=== PATIENT | male | born 1970 | race Caucasian/White ===

== ENCOUNTER 2022-02-04 08:35 | Emergency (ER) | payer MEDICAID, SELFPAY ==
--- NOTE | ~2022-02-04 | CT_ITS ---
EXAMINATION: CT HEAD WITHOUT CONTRAST CLINICAL INFORMATION: Fall with head strike COMPARISON: None. TECHNIQUE: Contiguous axial imaging was performed from the skull base to vertex without intravenous contrast. This CT examination was performed using dose optimization techniques as appropriate, variously including the following: * Automated exposure control * Adjustment of mA and/or kV according to patient size (this includes techniques or standardized protocols for targeted exams where dose is matched to indication/reason for exam; i.e. extremities or head) Use of iterative reconstruction technique DLP: 990 mGy-cm. FINDINGS: The examination was prematurely terminated due to patient inability to cooperate. The images are essentially nondiagnostic, as the entire head is not in the [id number] of this study and there is significant motion on the examination. CT/CT head/brain wo IV con IMPRESSION: Prematurely terminated examination due to inability of patient to cooperate. No useful diagnostic images are obtained.
[2022-02-04 08:48] VITALS: BP 105/64; PULSE 77; RESP 18; TEMP 35.9; BMI 19.5
--- NOTE | 2022-02-04 09:30 | ED_ITS ---
HPI - General Adult General Chief complaint: Fall Stated complaint: fall from standing, cog deficit per ems Time Seen by Provider: 02/04/22 09:28 Source: EMS and other (custodial staff) Mode of arrival: EMS Limitations: physical limitation (patient is non-verbal at baseline) History of Present Illness HPI narrative: Patient is a 51 year old assigned male at with a history of non-verbal autism and anxiety presenting to the emergency department today after a trip and fall. shelter staff states that the patient had a witnessed fall from ground level with a head strike. Staff states that the patient did not have any loss of consciousness. shelter staff states that they are concerned the patient has been acting more tired since before the fall and they would like a full work up . Severity: mild Severity scale (1-10): 2 Related Data Allergies Allergy/AdvReac Type Severity Reaction Status Date / Time Benzodiazepines Allergy Unknown UNKNOWN Unverified 01/05/20 17:11 [BENZODIAZEPINES] benztropine [BENZTROPINE] Allergy Unknown UNKNOWN Unverified 01/05/20 17:11 lorazepam [From ATIVAN] Allergy Unknown UNKNOWN Unverified 01/05/20 17:11 tretinoin [From RETIN-A] Allergy Unknown UNKNOWN Unverified 01/05/20 17:11 Review of Systems Review of Systems: Yes Other (unobtainable due to non-verbal status) Constitutional: Constitutional: Reports no additional constitutional complaints, Denies chills, Denies fever(s) and Denies night sweats Eyes: Eyes: Denies eye discharge and Denies loss of vision ENT: Denies dizziness and Denies neck mass Cardiovascular: Cardiovascular: Denies dyspnea Respiratory: Respiratory: Denies cough and Denies dyspnea Gastrointestinal: Gastrointestinal: Reports no additional gastrointestinal complaints, Denies abdominal pain, Denies melena, Denies hematochezia, Denies change in bowel habits and Denies change in stool character Genitourinary: Genitourinary: Reports no additional male genitourinary comp laints, Denies hematuria, Denies oliguria, Denies difficulty urinating, Denies dysuria, Denies urinary frequency, Denies urinary hesitancy, Denies urinary incontinence and Denies urinary urgency Musculoskeletal: Musculoskeletal: Reports no additional musculoskeletal complaints, Denies numbness and Denies tingling Neurologic: Denies dizziness, Denies loss of vision, Denies numbness and Denies tingling Psychiatric: Psychiatric: Reports no additional psychiatric complaints Endocrine: Endocrine: Reports no additional endocrine complaints Hematologic/Lymphatic: Hematologic/Lymphatic: Reports no additional hematologic/lymphatic complaints Allergic/Immunologic: Allergic/Immunologic: Reports no additional allergic/immunologic complaints PMFSH Past Medical History Attestation statement: The following information was validated with the patient. (all information was validated with the patient's staff) Source: old records reviewed Social History Social History Patient Tobacco Use Status: Never used Tobacco Use of substances other than those prescribed or required for medical reasons: No Advance Directives: No Physical Exam ED Vital Signs: Vital Signs - 24 hr 02/04/22 08:48 Temperature 96.7 F L Pulse Rate 77 Respiratory Rate 18 Blood Pressure 105/64 BMI result Body Mass Index 19.5 Const General: cooperative, no acute distress, alert and awake Nutritional Appearance: well nourished Limitations: language barrier (patient is non-verbal) and physical limitations (patient is non-verbal) HENMD Head: Yes normal to inspection and Yes atraumatic Ears: hearing grossly normal bilaterally and external ears normal General nose exam: Normal external nose present, no nasal discharge noted and no epistaxis Face and sinus: Yes normal facial exam, No abrasion and No laceration Mouth: Normal oral and palatal mucosa present, no drooling and no muffled voice Eyes General: appearance normal, both eyes and all related structures Periorbital: periorbital findings normal Eyelids: Yes eyelids normal Conjunctivae: conjunctivae normal Pupils: Equal, round and reactive pupils present EOM: EOMs intact bilaterally Neck Neck: Yes normal visual inspection, Yes full ROM and Yes no lymphadenopathy Chest Chest palpation & inspection: normal inspection of the chest Resp Effort & Inspection: normal respiratory effort and able to speak in complete sentences Auscultation: clear to auscultation bilaterally Cardio Rate: regular rate Rhythm: regular rhythm GI Inspection: Yes normal to inspection Neuro General: moves all extremities Cranial nerves: Yes Equal, round and reactive pupils present Extrem General: Yes normal to inspection, Yes full ROM and Yes capillary refill normal Psych Appearance: grossly normal Affect: normal affect Medical Decision Making MDM Narrative Medical decision making narrative: Patient is a 51 year old assigned male at with a history of non-verbal autism and anxiety presenting to the emergency department today after a fall. Patient's physical exam was unremarkable and considered his normal baseline per custodial staff. Patient's blood work was unremarkable. Patient refused to provide a urine sample or remain still for a CT scan. I called and spoke to the patient's mother. I explained to the patient's mother that he has no obvious neuro deficits and is acting his baseline self. Patient's mother requested that we not put the patient through the trauma of restraint to obtain a urine sample or get an appropriate CT scan. I answered all questions asked by the patient's mother and the patient's staff. I stressed the importance of the patient taking his medication as prescribed. I stressed the importance of the patient following up with his] primary care provider. I stressed the importance of the patient returning to the emergency department immediately if his symptoms were to worsen or if he were to develop any dizziness, shortness of breath, difficulty breathing, chest pain, blurry vision, loss of vision, nausea, vomiting, abdominal pain, fever, chills, back pain, or any other complaints. Patient's mother and the patient's staff verbalized agreement and understanding with this treatment plan and discharge. Medical Records Medical records reviewed: Yes I reviewed the patient's medical records. Lab Data Lab results reviewed: Yes I reviewed the patient's lab results. Result diagrams: 02/04/22 10:47 02/04/22 10:47 Labs: Lab Results 02/04/22 02/04/22 02/04/22 Range/Units 10:47 10:47 11:39 WBC 6.7 (4.8-10.8) X10*3/uL RBC 4.91 (4.60-5.80) X10*6/uL Hgb 15.4 (14.0-18.0) g/dl Hct 45.8 (42.0-52.0) % MCV 93.3 (80.0-98.0) fL MCH 31.4 (27.0-33.0) pg MCHC 33.6 (31.0-36.0) g/dl RDW 11.6 (11.0-16.0) % Plt Count 245 (160-400) X10*3/uL MPV 9.5 (9.4-12.4) fL Immature Gran % (Auto) 0.3 (0.0-0.4) % Neut % (Auto) 60.0 (45-73) % Lymph % (Auto) 23.8 (20-40) % Calloway % (Auto) 13.5 H (2-11) % Eos % (Auto) 2.1 (0-4) % Baso % (Auto) 0.3 (0-2) % Lymph # (Auto) 1.6 (1.2-4.9) X10*3/uL Calloway # (Auto) 0.9 (0.1-1.2) X10*3/uL Eos # (Auto) 0.1 (0.0-0.4) X10*3/uL Baso # (Auto) 0.0 (0.0-0.2) X10*3/uL Abs Immat Gran (auto) 0.02 (0.00-0.03) X10*3/uL Absolute Neuts (auto) 4.0 (2.0-8.3) x10*3/uL Absolute Nucleated RBC 0.000 (0.0-0.012) X10*3/uL Nucleated RBC % (auto) 0.0 (0.0-0.2) /100WBC Sodium 138 (135-145) mmol/L Potassium 4.5 (3.3-5.1) mmol/L Chloride 105 (96-108) mmol/L Carbon Dioxide 23 (22-29) mmol/L Anion Gap 15 (12-20) BUN 17 H (9-16) mg/dL Creatinine 0.69 (0.5-1.4) mg/dL Estim Creat Clear Calc 97.8 Estimated GFR > 60 Random Glucose 98 (60-115) mg/dL Calcium 9.0 (8.4-10.2) mg/dL Magnesium 2.0 (1.6-2.6) mg/dL Total Bilirubin 0.5 (0.0-1.0) mg/dL AST 18 (5-37) U/L ALT 14 (0-40) U/L Alkaline Phosphatase 59 (39-117) U/L Total Protein 6.7 (6.5-8.0) g/dL Albumin 3.8 (3.5-5.0) g/dL Influenza Type A (PCR) NEGATIVE (Negative) Influenza Type B (PCR) NEGATIVE (Negative) RSV RNA Qual (PCR) NEGATIVE (Negative) SARS-CoV-2 RNA (RT-PCR) NEGATIVE (Negative) Imaging Data CT scan - head: Attestation: I personally reviewed and interpreted this imaging study as follows: My impression: Undiagnostic. Radiologist's impression: EXAMINATION: CT HEAD WITHOUT CONTRAST CLINICAL INFORMATION: Fall with head strike COMPARISON: None. TECHNIQUE: Contiguous axial imaging was performed from the skull base to vertex without intravenous contrast. This CT examination was performed using dose optimization techniques as appropriate, variously including the following: *? Automated exposure control *? Adjustment of mA and/or kV according to patient size (this includes techniques or standardized protocols for targeted exams where dose is matched to indication/reason for exam; i.e. extremities or head) Use of iterative reconstruction technique DLP: 990 mGy-cm. FINDINGS: The examination was prematurely terminated due to patient inability to cooperate. The images are essentially nondiagnostic, as the entire head is not in the [id number] of this study and there is significant motion on the examination. CT/CT head/brain wo IV con IMPRESSION: Prematurely terminated examination due to inability of patient to cooperate. No useful diagnostic images are obtained. Dictated By: Tyler Waller MD Signed By: Electronically signed by Tyler Waller MD 02/04/22 1045 Discharge Plan Discharge Clinical Impression: Fall Patient Disposition: Home, Self-Care Instructions: Fall Prevention (ED) Additional Instructions: All lab work was negative for any acute problems. Follow up with your primary care provider. Return to the emergency department immediately if your symptoms worsen or if you develop any dizziness, shortness of breath, difficulty breathing, chest pain, blurry vision, loss of vision, nausea, vomiting, abdominal pain, fever, chills, back pain, or any other complaints. Referrals: Jason Mason MD [Primary Care Provider] - Interventions: ED Discharge Assessment Last Done: 02/04/22 13:56 Discharge Date/Time: 02/04/22 13:58 Print Language: Ukrainian
[2022-02-04 10:52] LABS: MANUAL DIFF FLAG NO
[2022-02-04 10:54] LABS: Basophils Percent Auto 0.3 % (0-2); Eosinophils Absolute Auto 0.1 X10*3/uL (0.0-0.4); Eosinophils Percent Auto 2.1 % (0-4); Hematocrit 45.8 % (42.0-52.0); Hemoglobin 15.4 g/dl (14.0-18.0); Imm Gran Abs Auto 0.02 X10*3/uL (0.00-0.03); Imm Gran Pct Auto 0.3 % (0.0-0.4); Lymphocytes Absolute Auto 1.6 X10*3/uL (1.2-4.9); Lymphocytes Percent Auto 23.8 % (20-40); Mean Corpuscular HGB Conc 33.6 g/dl (31.0-36.0); Mean Corpuscular Hemoglobin 31.4 pg (27.0-33.0); Mean Corpuscular Volume 93.3 fL (80.0-98.0); Mean Platelet Volume 9.5 fL (9.4-12.4); Monocytes Absolute Auto 0.9 X10*3/uL (0.1-1.2); Monocytes Percent Auto 13.5 % (2-11); Platelet Count 245 X10*3/uL (160-400); Red Blood Count 4.91 X10*6/uL (4.60-5.80); Red Cell Distribution Width 11.6 % (11.0-16.0); White Blood Count 6.7 X10*3/uL (4.8-10.8)
[2022-02-04 11:22] LABS: Alanine Aminotransferase 14 U/L (0-40); Albumin Level 3.8 g/dL (3.5-5.0); Alkaline Phosphatase 59 U/L (39-117); Anion Gap 15 (12-20); Aspartate Amino Transferase 18 U/L (5-37); Bilirubin Total 0.5 mg/dL (0.0-1.0); Blood Urea Nitrogen 17 mg/dL (9-16); Carbon Dioxide 23 mmol/L (22-29); Chloride 105 mmol/L (96-108); Creatinine Clr Calc Pharmacy 97.8; Estimated Glomerular Filt Rate > 60; Glucose Random 98 mg/dL (60-115); Potassium 4.5 mmol/L (3.3-5.1); Sodium 138 mmol/L (135-145); Total Protein 6.7 g/dL (6.5-8.0)
[2022-02-04 12:40] LABS: Influenza A PCR NEGATIVE (Negative); Influenza B PCR NEGATIVE (Negative); Resp Syncy Virus RNA Qual PCR NEGATIVE (Negative); SARS COV2 PCR INHOUSE NEGATIVE (Negative)
== END 2022-02-04 13:58 | disposition home or self-care (01) ==
PROVIDERS: Physician Assistant Medical; Emergency Provider Emergency Medicine Emergency Medical Services; PCP Internal Medicine
DX: S00.91XA Abrasion of unspecified part of head, initial encounter (principal); R51.9 Headache, unspecified; M54.2 Cervicalgia; W01.0XXA Fall on same level from slipping, tripping and stumbling without subsequent striking against object, initial encounter; Y93.9 Activity, unspecified; Y92.9 Unspecified place or not applicable; Y99.9 Unspecified external cause status; Z20.822 Contact with and (suspected) exposure to COVID-19; Z79.899 Other long term (current) drug therapy
CPT/HCPCS: 0241U; 70450; 80053; 83735; 85025; 99284

== ENCOUNTER 2022-03-10 09:16 | Emergency (ER) | payer MEDICAID, SELFPAY ==
[2022-03-10 09:22] VITALS: BP 107/68; RESP 14; TEMP 36.5; BMI 23.2
--- NOTE | 2022-03-10 09:23 | ED_ITS ---
HPI - Fall General Chief Complaint: Fall Stated Complaint: trip and fall with chin lac Source: old records reviewed Mode of arrival: EMS Limitations: altered mental status and physical limitation History of Present Illness HPI Narrative: 51-year-old patient [facility], with staff member at bedside, after a witnessed mechanical fall. Staff member denies any loss of consciousness before or after the fall or any change in mental status and that he is at his current mental baseline. Patient has a past medical history of autism, cerebral palsy, PICA, mitral valve prolapse, constipation, dysphagia, and tachycardia. Her [facility] staff member, patient is nonverbal however will grimace and vocalized if he is in any sort of pain. She does not believe he is uncomfortable at this time. He is alert, looking around the room, and tracking staff members while they moved in the room. Patient is unable to follow any given direction however he is noted to have normal range of motion of jaw as he is able to yawn with full opening of his mouth. MD complaint: fall Onset (ago): minute(s) Fall from: standing Fall witnessed: yes, by living facility staff Place fall occurred: home Loss of consciousness: none Prolonged down time: no Symptoms prior to fall: none Context: tripped/slipped Location of injury: face (right chin) Related Data Allergies Allergy/AdvReac Type Severity Reaction Status Date / Time Benzodiazepines Allergy Unknown UNKNOWN Unverified 01/05/20 17:11 [BENZODIAZEPINES] benztropine [BENZTROPINE] Allergy Unknown UNKNOWN Unverified 01/05/20 17:11 lorazepam [From ATIVAN] Allergy Unknown UNKNOWN Unverified 01/05/20 17:11 tretinoin [From RETIN-A] Allergy Unknown UNKNOWN Unverified 01/05/20 17:11 Review of Systems Review of Systems: Yes Unobtainable due to mental status and Other (information obtained from [facility] staff at [facility]iary) Constitutional: Constitutional: Reports no additional constitutional complaints, Denies fever(s), Denies frequent falls and Denies poor appetite ENT: Reports system reviewed and no additional complaints, except as documented, Denies bleeding gums and Reports dysphagia (baseline) Cardiovascular: Cardiovascular: Reports no additional cardiovascular complaints and Denies Loss of Consciousness Respiratory: Respiratory: Reports no additional respiratory complaints and Denies cough Gastrointestinal: Gastrointestinal: Reports no additional gastrointestinal complaints, Denies melena, Denies hematochezia, Denies change in bowel habits and Reports dysphagia (baseline) Musculoskeletal: Musculoskeletal: Reports no additional musculoskeletal complaints and Reports abnormal gait (baseline) Integumentary/Breasts: Skin/Breast: Reports system reviewed and no additional complaints, except as docu, Denies rash, Denies sores, Denies unusual bruising and Denies wounds Neurologic: Reports system reviewed and no additional complaints, except as documented, Reports abnormal gait (baseline), Denies behavioral changes and Denies frequent falls Psychiatric: Psychiatric: Reports no additional psychiatric complaints and Denies behavioral changes Endocrine: Endocrine: Reports no additional endocrine complaints and Denies change in body appearance Hematologic/Lymphatic: Hematologic/Lymphatic: Reports no additional hematologic/lymphatic complaints, Denies easy bleeding and Denies easy bruising PMFSH Past Medical History Attestation statement: The following information was validated with the patient. Source: old records reviewed and other (penitentiary staff member) Social History Social History Patient Tobacco Use Status: Never used Tobacco Advance Directives: No Advance Directives Information Provided: No Physical Exam Vital Signs: Vital Signs: Last Vital Signs Temp 97.7 F 03/10/22 09:22 Resp 14 03/10/22 09:22 BP 107/68 03/10/22 09:22 O2 Del Method 03/10/22 09:22 BMI result Body Mass Index 23.2 Const: General: alert and awake; No cooperative (does not follow commands) Nutritional Appearance: average body habitus Orientation/consciousness: Other orientation findings (unable to assess, pt nonverbal. At base [place] per penitentiary staff) Limitations: altered mental status, behavioral limitations and physical limitations HEENT: Head: Yes normal to inspection, Yes normocephalic and Yes laceration Ears: external ears normal General nose exam: Normal external nose present Face and sinus: Yes normal facial exam Eyes: General: appearance normal, both eyes and all related structures Alignment and Position: alignment normal Periorbital: periorbital findings normal Eyelids: Yes eyelids normal Conjunctivae: conjunctivae normal Sclerae: sclerae normal Pupils: Equal, round and reactive pupils present EOM: EOMs intact bilaterally Neck: Neck: Yes normal visual inspection and Yes full ROM Chest: Chest palpation & inspection: normal inspection of the chest Resp: Effort & Inspection: normal respiratory effort and not labored Auscultation: clear to auscultation bilaterally Cardio: Rate: regular rate Rhythm: regular rhythm GI: Inspection: Yes normal to inspection Back/Spine/Pelvis: Cervical Spine: cervical ROM normal Thoracic/Lumbar Spine: thoraco-lumbar ROM normal Skin: General skin exam: no rashes or lesions noted Trauma: laceration (right mandible/chin) Neuro: General: moves all extremities Cranial nerves: Yes Equal, round and reactive pupils present and Yes Bilaterally intact EOM present Gait exam (Neuro): Normal gait present (baseline per penitentiary staff) Extrem: General: Yes normal to inspection, Yes full ROM and Yes capillary refill normal Psych: Appearance: well kempt Medications Administered Discontinued Medications Generic Name Dose Route Start Last Admin Trade Name Freq PRN Reason Stop Dose Admin Diphtheria/Tetanus/Acell Pertussis 0.5 ml 03/10/22 10:11 03/10/22 10:23 Diphth,Pertus(Acell),Tet Adult 0.5 Ml Syringe IM 03/10/22 10:12 0.5 ml .ONCE ONE Administration Procedures Laceration Laceration 1: Site: face (right mandible/chin) Side (If applicable): right Size (cm): 1.5 Description: linear and clean Depth: simple, single layer Pre-repair: irrigated extensively Technique: other (closed with steristrips and dermabond) MDM - Fall MDM Narrative Medical decision making narrative: 51-year-old male presents to the emergency department after injuring his right mandible after a witnessed mechanical fall at [facility] a [facility]. Per penitentiary staff member, [facility], patient is at his baseline regarding his mental status, range of motion of his extremities and neck. 1.5 cm laceration noted on the right mandible with scant active bleeding. No signs of discomfort on palpation of his mandible, tissue soft, no crepitus noted, and no trismus noted when patient yawning. Wound cleansed with Betadine and normal saline, benzoin painted around wound edges, Steri-Strips applied, and Dermabond applied over Steri-Strips to close wound. Educated to present back to the emergency department with changes in mental status, nausea, vomiting, fever, chills, changes in his gait, or any other concern. Recommended to follow up with primary care provider. Fall safety discussed with [facility] staff member with no unanswered questions. No concerns for facial fracture, intracranial bleeding, concussion. Cleared for discharge. Medical Records Attestation: I reviewed the patient's medical records. Lab Data Attestation: I reviewed the patient's lab results. Discharge Plan Discharge Clinical Impression: Fall Patient Disposition: Home, Self-Care Instructions: Fall Prevention (ED) Additional Instructions: Present back to the emergency department if patient exhibits change in baseline mental status, change in his walking ability, change in vision, or any other concerns. Follow up with his primary care provider. Booster Tdap given today 03/10/2022 as last vaccine was in 2011. Referrals: Jason Mason MD [Primary Care Provider] - Interventions: ED Discharge Assessment Last Done: 03/10/22 10:28 Discharge Date/Time: 03/10/22 10:30 Print Language: Burmese
[2022-03-10] MEDS: Diphth,Pertus(ACell),Tet Adult 0.5 ML SYRINGE IM (10:23)
== END 2022-03-10 10:30 | disposition home or self-care (01) ==
PROVIDERS: Emergency Provider Emergency Medicine; PCP Internal Medicine
DX: S01.81XA Laceration without foreign body of other part of head, initial encounter (principal); W19.XXXA Unspecified fall, initial encounter; Y93.9 Activity, unspecified; Y92.049 Unspecified place in boarding-house as the place of occurrence of the external cause; Y99.9 Unspecified external cause status
CPT/HCPCS: 12011; 90471; 90715; 99282; 99284

== ENCOUNTER 2023-01-22 15:44 | Emergency (ER) | payer OTHER, SELFPAY ==
[2023-01-22 16:04] VITALS: BP 115/77; RESP 14; TEMP 36.7; BMI 20.8
--- NOTE | 2023-01-22 16:13 | ED.GENADULT ---
HPI - General Adult General Chief complaint: Extremity Injury, Lower Stated complaint: ? broken toe left foot Time Seen by Provider: 01/22/23 16:32 Source: patient and other Mode of arrival: ambulatory Limitations: no limitations History of Present Illness HPI narrative: This is a 52-year-old male nonverbal secondary to autism presenting to the emergency department with correction staff member who reports when she came on shift patient was reporting that his left 2nd toe was hurting she states that patient typically does not express pain. community health outreach worker was not aware of any trauma or injury to the area. No falls reported. Patient acting his normal self. Related Data Previous Rx's Medication Instructions Recorded naproxen 500 mg tablet 500 mg PO BID PRN pain #14 tabs 01/22/23 prednisone 20 mg tablet 40 mg (2 x 20 mg) PO DAILY 5 days 01/22/23 #10 tabs Allergies Allergy/AdvReac Type Severity Reaction Status Date / Time Benzodiazepines Allergy Unknown UNKNOWN Unverified 01/05/20 17:11 [BENZODIAZEPINES] benztropine [BENZTROPINE] Allergy Unknown UNKNOWN Unverified 01/05/20 17:11 lorazepam [From ATIVAN] Allergy Unknown UNKNOWN Unverified 01/05/20 17:11 tretinoin [From RETIN-A] Allergy Unknown UNKNOWN Unverified 01/05/20 17:11 Review of Systems Review of Systems: Yes Unobtainable due to mental status PMFSH Past Medical History Attestation statement: The following information was validated with the patient. Source: old records reviewed and nursing notes reviewed Social History Social History Patient Tobacco Use Status: Never used Tobacco Physical Exam ED Vital Signs: Vital Signs - 24 hr 01/22/23 16:04 Temperature 98.0 F Respiratory Rate 14 Blood Pressure 115/77 BMI result Body Mass Index 20.8 vss Appearance: Alert.? Awake, moving all extremities. Acting his normal self per probation worker. Nonverbal. Nontoxic Head: Normocephalic, atraumatic, no step-offs or deformities Eyes: Pupils equal, round and reactive to light.? CVS: Normal heart rate and rhythm.? Pulses normal.? Respiratory: No respiratory distress.? Breath sounds normal.? Abdomen: Soft and nontender.? Skin: Skin warm and dry.? Normal skin color.? Normal skin turgor.? Extremities: No lower extremity edema.? No calf ttp. 5/5 strength to bilateral upper and lower extremities + erythema and warmth overlying left 2nd toe throughout, with painless range of motion, patient not grimacing with active or passive range of motion 2+ dorsalis pedis anterior tibialis and posterior tibialis pulses equal bilateral. No foot drop. Ambulatory w/ steady gait. Neuro: Alert.? Awake, moving all extremities. Acting his normal self per probation worker Course Course Course Narrative: This is a rapid medical exam: Additional HPI, ROS, PE not included below will be deferred to primary provider. Patient is a 52-year-old male with history of non-verbal autism presenting to the ED with correction staff who reports that she just came on shift but was told patient's left 2nd toe is red and swollen. She states that patient typically does not express pain. She was not notified of any injury/trauma. Plan: x-ray Medical Decision Making Medical Decision Making MDM Narrative: 1640 52-year-old male presents with left 2nd toe pain and swelling suspected for a day, patient nonverbal autistic coming from correction. Physical exam significant for 5/5 strength to bilateral upper and lower extremities + erythema and warmth overlying left 2nd toe throughout, with painless range of motion, patient not grimacing with active or passive range of motion 2+ dorsalis pedis anterior tibialis and posterior tibialis pulses equal bilateral. No foot drop. Ambulatory w/ steady gait. Likely gout versus pseudogout versus inflammatory arthritis versus cellulitis. Unlikely septic joint, neurovascular compromise or threat to [place]. Will rule out fracture dislocation with x-ray although unlikely. Plan x-ray. Differential Diagnosis Differential Diagnoses: The differential diagnosis associated with the presentation includes Likely gout versus pseudogout versus inflammatory arthritis versus cellulitis. Unlikely septic joint, neurovascular compromise or threat to [place]. Will rule out fracture dislocation with x-ray although unlikely. Independent Interpretation I performed an independent interpretation of an: Plain X-Ray Radiology Impression Discussion of test interpretation with radiology: I have reviewed the radiologist's reading. Prescription Management I considered prescription management with: Pain Medication and Other (prednisone ) Discharge Plan Discharge Clinical Impression: Pain in toe Patient Disposition: Home, Self-Care Instructions: Arthralgia (ED) Additional Instructions: Take your medications as prescribed. If you were prescribed antibiotics today, it is important that you take your medication to their entirety, do not skip any doses, do not finish them early. Follow-up with your primary care provider this week. Follow-up with the orthopedic team in needed in symptoms do not improve in a week or 2. Return to the emergency department with new or worsening symptoms. Such as fevers, chills, chest pain, shortness of breath, nausea, vomiting, dizziness, headache, vision changes, lethargy In case of emergency call 911 Prescriptions: New naproxen 500 mg tablet 500 mg PO BID PRN (Reason: pain) Qty: 14 0RF Rx Instructions: Take with food prednisone 20 mg tablet 40 mg PO DAILY 5 Days Qty: 10 0RF Referrals: [facility] [place]Provider Group] - 2 weeks Jason Mason MD [Primary Care Provider] - 2 days
--- NOTE | 2023-01-22 16:19 | PC.NURSE ---
unable to get a full set of vitals due to patient condition
--- NOTE | 2023-01-22 17:13 | PC.NURSE ---
resting in wheelchair - baseline. alert. answers to name. baseline not follow commands per staff at bedside. took pill well w apple sauce
== END 2023-01-22 17:10 | disposition home or self-care (01) ==
PROVIDERS: Emergency Provider Emergency Medicine; PCP Internal Medicine
DX: M79.675 Pain in left toe(s) (principal); F84.0 Autistic disorder
CPT/HCPCS: 73630; 99283; 99284

== ENCOUNTER 2023-01-26 15:45 | Emergency (ER) | payer OTHER, SELFPAY ==
[2023-01-26 16:12] VITALS: BP 120/76; PULSE 90; RESP 18; TEMP 36.5; BMI 23.2
--- NOTE | 2023-01-26 16:12 | ED.GENADULT ---
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) History of Present Illness HPI narrative: Patient history of cerebral palsy mentally retarded autistic nonverbal comes here as he was grunting earlier today step was not clear as he gets UTI frequently and when he has any pain he grunts, in the ER patient's relax at his baseline without any distress Related Data Previous Rx's Medication Instructions Recorded naproxen 500 mg tablet 500 mg PO BID PRN pain #14 tabs 01/22/23 prednisone 20 mg tablet 40 mg (2 x 20 mg) PO DAILY 5 days 01/22/23 #10 tabs Allergies Allergy/AdvReac Type Severity Reaction Status Date / Time Benzodiazepines Allergy Unknown UNKNOWN Verified 01/26/23 16:16 [BENZODIAZEPINES] benztropine [BENZTROPINE] Allergy Unknown UNKNOWN Verified 01/26/23 16:16 lorazepam [From ATIVAN] Allergy Unknown UNKNOWN Verified 01/26/23 16:16 tretinoin [From RETIN-A] Allergy Unknown UNKNOWN Verified 01/26/23 16:16 Review of Systems Review of Systems: Yes all other systems are reviewed and are negative [facility] Social History Social History Patient Tobacco Use Status: Never used Tobacco Smoked in Last 30 Days: No Use of substances other than those prescribed or required for medical reasons: No Advance Directives: No Advance Directives Information Provided: No Physical Exam ED Vital Signs: Vital Signs - 24 hr 01/26/23 16:12 01/26/23 21:32 Temperature 97.7 F Pulse Rate 90 Respiratory Rate 18 17 Blood Pressure 120/76 116/77 BMI result Body Mass Index 23.2 Appearance: Alert. No acute distress. Mentally challenged Eyes: No pallor or icterus ENT: Pharynx normal. Oral Mucosa moist Neck: Normal inspection. Neck supple. CVS: Normal heart rate and rhythm. Pulses normal. Respiratory: No respiratory distress. Equal air entry bilateral, no wheezing/rales/rhonchi Abdomen: Soft and nontender. Bowel sounds are present, no mass palpable, Skin: Skin warm and dry. Normal skin color. Normal skin turgor. Extremities: No lower extremity edema. No calf tenderness Neuro: Alert and awake at his baseline Course Course Course Narrative: RME performed by Arleen Babcock PA-C. Patient is a 52 year old assigned male at presenting to the emergency department with abnormal behavior. [facility] staff states that the patient has been acting differently. Labs ordered. Patient placed back in the waiting room pending room availability and results. Medical Decision Making Medical Decision Making [place] Narrative: Patient with stable vital stable lab no UTI at this time cause of his grunting not clear likely behavioral no source of infection discharge patient back to group Differential Diagnosis Differential Diagnoses: The differential diagnosis associated with the presentation includes UTI/behavioral change/pain Lab Data [place] Lab Attestation statement: I reviewed the patient's lab results. 01/26/23 16:33 01/26/23 16:33 Labs: Lab Results 01/26/23 01/26/23 Range/Units 16:33 22:53 WBC 10.0 (4.8-10.8) X10*3/uL RBC 4.76 (4.60-5.80) X10*6/uL Hgb 15.1 (14.0-18.0) g/dl Hct 44.8 (42.0-52.0) % MCV 94.1 (80.0-98.0) fL MCH 31.7 (27.0-33.0) pg MCHC 33.7 (31.0-36.0) g/dl RDW 12.1 (11.0-16.0) % Plt Count 286 (160-400) X10*3/uL MPV 8.8 L (9.4-12.4) fL Immature Gran % (Auto) 0.2 (0.0-0.4) % Neut % (Auto) 56.6 (45-73) % Lymph % (Auto) 28.5 (20-40) % [place] % (Auto) 13.7 H (2-11) % Eos % (Auto) 0.8 (0-4) % Baso % (Auto) 0.2 (0-2) % Lymph # (Auto) 2.9 (1.2-4.9) X10*3/uL [place] # (Auto) 1.4 H (0.1-1.2) X10*3/uL Eos # (Auto) 0.1 (0.0-0.4) X10*3/uL Baso # (Auto) 0.0 (0.0-0.2) X10*3/uL Abs Immat Gran (auto) 0.02 (0.00-0.03) X10*3/uL Absolute Neuts (auto) 5.7 (2.0-8.3) x10*3/uL Absolute Nucleated RBC 0.000 (0.0-0.012) X10*3/uL Nucleated RBC % (auto) 0.0 (0.0-0.2) /100WBC Sodium 142 (135-145) mmol/L Potassium 4.1 (3.3-5.1) mmol/L Chloride 104 (96-108) mmol/L Carbon Dioxide 27 (22-29) mmol/L Anion Gap 15 (12-20) BUN 24 H (9-16) mg/dL Creatinine 0.75 (0.5-1.4) mg/dL Estim Creat Clear Calc 87.1 Estimated GFR > 60 Random Glucose 89 (60-115) mg/dL Calcium 9.9 D (8.4-10.2) mg/dL Magnesium 2.3 (1.6-2.6) mg/dL Total Bilirubin 0.4 (0.0-1.0) mg/dL AST 29 (5-37) U/L ALT 31 (0-40) U/L Alkaline Phosphatase 54 (39-117) U/L Total Protein 7.4 (6.5-8.0) g/dL Albumin 4.0 (3.5-5.0) g/dL Urine Color Yellow Urine Appearance Clear Urine pH 6.0 (5.0-9.0) Ur Specific [place] 1.025 (1.005-1.025) Urine Protein Negative (Neg-Trace) mg/dL Urine Glucose (UA) Negative (Negative) mg/dL Urine Ketones Trace (Negative) mg/dL Urine Blood Negative (Negative) Urine Nitrite Negative (Negative) Ur Leukocyte Esterase Negative (Negative) Influenza Type A (PCR) NEGATIVE (Negative) Influenza Type B (PCR) NEGATIVE (Negative) RSV RNA Qual (PCR) NEGATIVE (Negative) SARS-CoV-2 RNA (RT-PCR) NEGATIVE (Negative) Discharge Plan Discharge Clinical Impression: 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
--- NOTE | 2023-01-26 16:36 | MHC.EDTECH ---
this pct dolores labs on patient although patient has a member of his [facility] staff with him, staff member wasn't very helpful at all the patient kept jerking away and i had to go get another tech to assist me.RN Aware
[2023-01-26 16:53] LABS: Alanine Aminotransferase 31 U/L (0-40); Alkaline Phosphatase 54 U/L (39-117); Anion Gap 15 (12-20); Aspartate Amino Transferase 29 U/L (5-37); Bilirubin Total 0.4 mg/dL (0.0-1.0); Blood Urea Nitrogen 24 mg/dL (9-16); Calcium 9.9 mg/dL (8.4-10.2); Carbon Dioxide 27 mmol/L (22-29); Chloride 104 mmol/L (96-108); Creatinine Clr Calc Pharmacy 87.1; Estimated Glomerular Filt Rate > 60; Glucose Random 89 mg/dL (60-115); Magnesium 2.3 mg/dL (1.6-2.6); Potassium 4.1 mmol/L (3.3-5.1); Sodium 142 mmol/L (135-145); Total Protein 7.4 g/dL (6.5-8.0)
[2023-01-26 21:32] VITALS: BP 116/77; RESP 17
--- NOTE | 2023-01-27 01:03 | MHC.EDTECH ---
call out to pauline at 0103 to book transport for pt back to skilled nursing, estimated eta given was [phone] Ambulance is here 111
== END 2023-01-27 01:42 | disposition home or self-care (01) ==
PROVIDERS: Physician Assistant Medical; Emergency Provider Internal Medicine
DX: R41.82 Altered mental status, unspecified (principal); F84.0 Autistic disorder; F91.9 Conduct disorder, unspecified; R30.0 Dysuria; Z20.822 Contact with and (suspected) exposure to COVID-19; Z11.52 Encounter for screening for COVID-19; Z87.440 Personal history of urinary (tract) infections; Z79.899 Other long term (current) drug therapy
CPT/HCPCS: 0241U; 51701; 80053; 81003; 83735; 85025; 99283; 99284

== ENCOUNTER 2023-02-26 07:18 | Emergency (ER) | payer OTHER, SELFPAY ==
--- NOTE | ~2023-02-26 | XR_ITS ---
EXAMINATION: XR ELBOW, LEFT CLINICAL INFORMATION: Elbow swelling and erythema COMPARISON: None available. TECHNIQUE: AP, lateral, and oblique views of the left elbow. FINDINGS: There is a large area of heterotopic cloudlike calcifications seen in the region of the triceps tendon and olecranon bursa. No collection to underlying osseous structures is seen. It is difficult to assess for joint effusion with the given views. No fractures or dislocations. There is marked soft tissue swelling with skin thickening posteriorly. XR/XR elbow LT min 3V IMPRESSION: Large area of heterotopic calcification in the region of the triceps tendon and olecranon bursa as described above. 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
[2023-02-26 07:31] VITALS: BP 103/69; PULSE 88; RESP 16; BMI 23.2
--- NOTE | 2023-02-26 07:58 | ED_ITS ---
HPI - Extremity Problem General Chief complaint: Extremity Problem Stated complaint: Swelling in left arm Time Seen by Provider: 02/26/23 07:35 Source: other Mode of arrival: ambulatory History of Present Illness HPI Narrative: 52-year-old male brought in by group account director for identifying pain in the left upper extremity since this morning with swelling and warmth as well as redness. Unknown if patient sustained an injury. Related Data Previous Rx's Medication Instructions Recorded naproxen 500 mg tablet 500 mg PO BID PRN pain #14 tabs 01/22/23 prednisone 20 mg tablet 40 mg (2 x 20 mg) PO DAILY 5 days 01/22/23 #10 tabs acetaminophen 500 mg tablet 1,000 mg (2 x 500 mg) PO Q6H 5 02/26/23 days #60 tabs famotidine 20 mg tablet 20 mg PO DAILY #5 tabs 02/26/23 ibuprofen 800 mg tablet 800 mg PO TID 5 days #15 tabs 02/26/23 Allergies Allergy/AdvReac Type Severity Reaction Status Date / Time Benzodiazepines Allergy Unknown UNKNOWN Verified 01/26/23 16:16 [BENZODIAZEPINES] benztropine [BENZTROPINE] Allergy Unknown UNKNOWN Verified 01/26/23 16:16 lorazepam [From ATIVAN] Allergy Unknown UNKNOWN Verified 01/26/23 16:16 tretinoin [From RETIN-A] Allergy Unknown UNKNOWN Verified 01/26/23 16:16 Review of Systems Review of Systems: Pertinent positives and negatives as stated in HPI [facility] Past Medical History Source: nursing notes reviewed Social History Social History Unable to assess alcohol history related to: Unable to respond Patient Tobacco Use Status: Never used Tobacco Use of substances other than those prescribed or required for medical reasons: Unable to respond Advance Directives: No Advance Directives Information Provided: No Physical Exam Vital Signs: Vital Signs: Last Vital Signs Pulse 82 02/26/23 08:40 Resp 14 02/26/23 08:40 BP 116/73 02/26/23 08:40 BMI result Body Mass Index 23.2 VITAL SIGNS: Reviewed. GENERAL: Well developed, well nourished, in no acute distress. HEAD: Normocephalic/atraumatic EYES: PERRLA, EOMI EARS: Ext canals without abnormality NOSE: Nares patent bilateral OROPHARYNX: no oral lesions noted, posterior pharynx clear NECK: Supple, no adenopathy LUNGS: Normal breath sounds. No adventitious sounds or accessory muscle use. CARDIOVASCULAR: Regular rate and rhythm without noted murmurs ABDOMEN: Soft, non-tender, non-distended with bowel sounds. MUSCULOSKELETAL: No tenderness, deformities, or effusions noted on gross inspection. EXTREMITIES: No cyanosis, clubbing or edema. LUE: There is noted erythema and swelling around the left elbow, patient is been of the elbow without observed pain, neurovascular is intact distal, observed full range of motion of the wrist SKIN: Inspection of the skin reveals no rashes NEUROLOGIC: Alert and nonverbal. Strength and sensation to light touch were grossly intact x 4. Medications Administered Discontinued Medications Generic Name Dose Route Start Last Admin Trade Name Addyq PRN Reason Stop Dose Admin Acetaminophen 975 mg 02/26/23 08:01 02/26/23 08:29 Acetaminophen 325 Mg Tablet PO 02/26/23 08:02 Not Given ONCE ONE Famotidine 20 mg 02/26/23 08:08 02/26/23 08:21 Famotidine 20 Mg Tablet PO 02/26/23 08:09 20 mg ONCE ONE Administration Ibuprofen 800 mg 02/26/23 08:04 02/26/23 08:21 Ibuprofen 800 Mg Tablet PO 02/26/23 08:05 800 mg ONCE ONE Administration Medical Decision Making Medical Decision Making [facility] Narrative: 52-year-old male with history and clinical presentation after review of prior visits for likely gout/pseudogout but will rule out occult fracture or dislocation with imaging studies. Low clinical suspicion for septic joint. Started on Tylenol and Ibuprofen. I reviewed all investigations and imaging studies identify a calcinosis and there is no fluid within the joint or subcutaneous tissue although it is noted to be edematous on clinical exam. Patient will be empirically treated for a pseudogout, the suggestion of renal issues is unlikely as kidney function in January was completely normal. Patient needs to have further follow-up and workup conducted by the primary care doctor. Differential Diagnosis Differential Diagnoses: The differential diagnosis associated with the presentation includes Please see the discussion above Admission/Observation Consideration of admission/observation: Escalation of care including admission/observation considered Please see the discussion above Lab Data [facility] Lab Attestation statement: I reviewed the patient's lab results. Please see the discussion above Radiology Impression Discussion of test interpretation with radiology: I have reviewed the radiologist's reading. Radiologist Impression: Please see the discussion above Discharge Plan Discharge Clinical Impression: Pseudogout of elbow Patient Disposition: Xfer Other Instructions: Pseudogout (ED) Additional Instructions: 1. Tylenol 1000 mg, orally, every 6 hours as needed for pain control. Do not exceed 4000 mg within 24 hours. 2. Ibuprofen 800 mg, orally with milk or food, every 8 hours as needed for pain control. Due to the use of the NSAIDs will prescribed famotidine as well. 3. Follow-up with primary care doctor for further workup in the outpatient setting. Prescriptions: New acetaminophen 500 mg tablet 1,000 mg PO Q6H 5 Days Qty: 60 0RF ibuprofen 800 mg tablet 800 mg PO TID 5 Days Qty: 15 0RF famotidine 20 mg tablet 20 mg PO DAILY Qty: 5 0RF No Action naproxen 500 mg tablet 500 mg PO BID PRN (Reason: pain) Qty: 14 0RF Rx Instructions: Take with food prednisone 20 mg tablet 40 mg PO DAILY 5 Days Qty: 10 0RF Referrals: Jason Mason MD [Primary Care Provider] -
[2023-02-26] MEDS: Famotidine 20 MG TABLET PO (08:21)
[2023-02-26] MEDS: Ibuprofen 800 MG TABLET PO (08:21)
[2023-02-26 08:40] VITALS: BP 116/73; PULSE 82; RESP 14
== END 2023-02-26 09:42 | disposition other institution (70) ==
PROVIDERS: Emergency Provider Student in an Organized Health Care Education/Training Program; PCP Internal Medicine
DX: M11.222 Other chondrocalcinosis, left elbow (principal); M79.602 Pain in left arm
CPT/HCPCS: 73080; 99283; 99284

== ENCOUNTER 2023-04-18 10:10 | Emergency (ER) | payer OTHER, SELFPAY ==
--- NOTE | ~2023-04-18 | XR_ITS ---
EXAMINATION: XR FOOT, LEFT CLINICAL INFORMATION: Third and fourth digit injury COMPARISON: None available. TECHNIQUE: AP, lateral, and oblique views of the left foot. FINDINGS: Bones appear to be normal anatomic alignment with no acute fracture or dislocation seen. Mild soft tissue swelling about the third and fourth digits. No bony destructive lesions or significant degenerative changes. Prominent calcaneal heel spur is seen. XR/XR foot LT min 3V IMPRESSION: Soft tissue swelling but no acute fracture or dislocation.
[2023-04-18 10:20] VITALS: BP 103/57; PULSE 72; RESP 18; TEMP 35.7; O2SAT 98; BMI 23.2
--- NOTE | 2023-04-18 11:39 | ED.SKABFB ---
HPI - Skin/Abscess/Foreign Bdy General Chief complaint: Skin/Abscess/Foreign Body Stated complaint: rash/ arm swelling Time Seen by Provider: 04/18/23 10:57 Source: other ( Safety And Security Manager) Mode of arrival: wheelchair Limitations: physical limitation ( nonverbal) History of Present Illness HPI narrative: patient is a 52-year-old male who presents emergency department with a underwriting consultant for evaluation, upon showering patient this morning they noticed a rash to the left lateral chest / rib area. believes onset to me within the past day. He has noticed the patient to be scratching this area at times. Denies any known allergens, new detergents, lotions, skin care products. He is nonverbal, staff reports that he does not appear to be in pain when they touch this area. Additionally, he reports that he noticed discoloration to the left 3rd and 4th toenails today. Patient is ambulatory at baseline and walks all throughout the home, it is unclear whether he may have bumped his foot into something. Staff reports that he does appear to be in pain when they touch his foot, he received naproxen earlier this morning Related Data Previous Rx's Medication Instructions Recorded naproxen 500 mg tablet 500 mg PO BID PRN pain #14 tabs 01/22/23 prednisone 20 mg tablet 40 mg (2 x 20 mg) PO DAILY 5 days 01/22/23 #10 tabs acetaminophen 500 mg tablet 1,000 mg (2 x 500 mg) PO Q6H 5 02/26/23 days #60 tabs famotidine 20 mg tablet 20 mg PO DAILY #5 tabs 02/26/23 ibuprofen 800 mg tablet 800 mg PO TID 5 days #15 tabs 02/26/23 hydrocortisone 2.5 % topical cream 1 appl topical BID PRN itching #20 04/18/23 grams Allergies Allergy/AdvReac Type Severity Reaction Status Date / Time Benzodiazepines Allergy Unknown UNKNOWN Verified 01/26/23 16:16 [BENZODIAZEPINES] benztropine [BENZTROPINE] Allergy Unknown UNKNOWN Verified 01/26/23 16:16 lorazepam [From ATIVAN] Allergy Unknown UNKNOWN Verified 01/26/23 16:16 tretinoin [From RETIN-A] Allergy Unknown UNKNOWN Verified 01/26/23 16:16 Review of Systems Review of Systems: Yes Unobtainable due to mental status PMFSH Past Medical History Attestation statement: The following information was validated with the patient. Source: old records reviewed Social History Social History Unable to assess alcohol history related to: Unable to respond Patient Tobacco Use Status: Never used Tobacco Advance Directives: No Advance Directives Information Provided: No Physical Exam Vital Signs: Vital Signs: Last Vital Signs Temp 96.9 F 04/18/23 14:18 Pulse 84 04/18/23 14:18 Resp 18 04/18/23 14:18 BP 123/67 04/18/23 14:18 Pulse Ox 99 04/18/23 14:18 O2 Del Method Room Air 04/18/23 14:18 BMI result Body Mass Index 23.2 Appearance: Alert.?No acute distress.?Normal affect. Eyes: Pupils equal, round and reactive to light.? ENT: Pharynx normal.?? Neck: Normal inspection.? Neck supple.?? CVS: Heart sounds normal. Normal heart rate and rhythm.? Pulses normal.?? Respiratory: No respiratory distress.? Lung sounds clear to auscultation bilaterally?? Abdomen: Soft and non-tender. Normoactive bowel sounds. ? Skin: Skin warm and dry.? Normal skin color.? left lateral /anterior abdomen with erythematous patch and linear pruritic type abrasions. no vesicles Extremities: No lower extremity edema.? left 3rd and 4th digit of the foot with distal bruising, tenderness upon palpation, no obvious deformity Neuro: Moves all extremities spontaneously. . Ambulates with normal steady gait. Medical Decision Making Medical Decision Making MDM Narrative: patient is a 52-year-old male who presents to the emergency department the underwriting consultant from alf for evaluation of a rash and discoloration to the toes of the left foot as per HPI. At the time my examination patient appears overall well, nontoxic, afebrile. The left lateral/anterior abdomen does have a erythematous blanchable patch with linear abrasions consistent with scratch carson. At this time does not appear tender to touch and there are no vesicles. Appears to be nonspecific atopic dermatitis versus contact dermatitis, for which I will treat with topical corticosteroids. no evidence of SJS / TENS/DRESS. I did discuss with staff member possible early presentation of herpes zoster and close monitoring for any changes to the rash such as vesicles or signs of pain. Left foot with distal bruising to the 3rd and 4th digit, no subungual hematoma that would be amenable to drainage, tenderness upon palpation, given he is ambulatory concern for possible fracture, obtained XR which reveals no evidence of fracture dislocation. Suspect symptoms secondary to a contusion to the digits. Discussed rest, ice, continued use of anti-inflammatory. Outpatient follow-up with primary care provider. Stable for discharge at this time. Differential Diagnosis Differential Diagnoses: The differential diagnosis associated with the presentation includes Admission/Observation Consideration of admission/observation: Escalation of care including admission/observation considered ( As noted above) Independent Interpretation I performed an independent interpretation of an: Plain X-Ray ( I personally interpreted x-ray and agree with radiologist impression.) Radiology Impression Discussion of test interpretation with radiology: I have reviewed the radiologist's reading. Radiologist Impression: XR/XR foot LT min 3V IMPRESSION: Soft tissue swelling but no acute fracture or dislocation. Independent Historian Clinical information obtained from an independent historian. History obtained from or confirmed by: Other ( [facility] staff) External Record Review External record reviewed: Other ( alf records) Prescription Management I considered prescription management with: Other ( Topical corticosteroid) Discharge Plan Discharge Clinical Impression: Dermatitis, Contusion of foot, left Patient Disposition: Home, Self-Care Instructions: Foot Contusion (ED), Dermatitis (ED) Additional Instructions: as discussed, the rash to the side of his stomach appears consistent with a dermatitis, there appears to be scratch carson to indicate that it is itchy to him. Please cleanse the area twice daily with warm water and mild non scented soap and apply hydrocortisone cream as instructed. Monitor this area closely, if it develops signs of a worsening rash particularly with fluid-filled blisters or vesicles then this should be re-evaluated for a possible shingles outbreak. The x-ray of the left foot does not show any evidence of fracture or dislocation to the toes which is reassuring. I suspect that the discoloration is due to a contusion likely he sustained an injury to the foot at some point that resulted in this discoloration and pain. Continue taking naproxen as he is prescribed. Follow-up with primary care provider. Prescriptions: New hydrocortisone 2.5 % cream 1 appl topical BID PRN (Reason: itching) Qty: 20 0RF No Action acetaminophen 500 mg tablet 1,000 mg PO Q6H 5 Days Qty: 60 0RF ibuprofen 800 mg tablet 800 mg PO TID 5 Days Qty: 15 0RF famotidine 20 mg tablet 20 mg PO DAILY Qty: 5 0RF naproxen 500 mg tablet 500 mg PO BID PRN (Reason: pain) Qty: 14 0RF Rx Instructions: Take with food prednisone 20 mg tablet 40 mg PO DAILY 5 Days Qty: 10 0RF Referrals: Jason Mason MD [Primary Care Provider] -
[2023-04-18 14:18] VITALS: BP 123/67; PULSE 84; RESP 18; TEMP 36.1; O2SAT 99
== END 2023-04-18 15:17 | disposition home or self-care (01) ==
PROVIDERS: Emergency Provider Emergency Medicine; PCP Internal Medicine
DX: S90.32XA Contusion of left foot, initial encounter (principal); L30.9 Dermatitis, unspecified; R60.0 Localized edema; R21 Rash and other nonspecific skin eruption; X58.XXXA Exposure to other specified factors, initial encounter; Y93.9 Activity, unspecified; Y92.9 Unspecified place or not applicable; Y99.9 Unspecified external cause status
CPT/HCPCS: 73630; 99283

== ENCOUNTER 2023-04-19 07:19 | Emergency (ER) | payer OTHER, SELFPAY ==
[2023-04-19 07:33] VITALS: RESP 24; TEMP 36.6; BMI 23.2
== END 2023-04-19 09:41 | disposition left against medical advice (07) ==
PROVIDERS: Emergency Provider Emergency Medicine; PCP Internal Medicine
DX: R06.9 Unspecified abnormalities of breathing (principal)
CPT/HCPCS: 99281

== ENCOUNTER 2023-04-19 15:02 | Emergency (ER) | payer OTHER, SELFPAY ==
--- NOTE | ~2023-04-19 | CT_ITS ---
EXAMINATION: CT HEAD WITHOUT CONTRAST CT CERVICAL SPINE WITHOUT CONTRAST CLINICAL INFORMATION: Altered mental status. COMPARISON: No similar priors. TECHNIQUE: Contiguous axial imaging was performed from the skull base to vertex without intravenous administration of contrast. Contiguous axial imaging was performed from the upper chest through the skull base without intravenous administration of contrast. Coronal and sagittal reformats were obtained at the acquisition workstation. This CT examination was performed using dose optimization techniques as appropriate, variously including the following: *Automated exposure control *Adjustment of mA and/or kV according to patient size (this includes techniques or standardized protocols for targeted exams where dose is matched to indication/reason for exam; i.e. extremities or head) *Use of iterative reconstruction technique DLP: 639 and 349. mGy-cm FINDINGS: Head: There is no evidence of acute intracranial hemorrhage or edematous territorial infarction. There is no abnormal attenuation within the brain parenchyma. Kahn-white matter differentiation is preserved. The ventricles are normal in size and configuration. No evidence for obstructive hydrocephalus. No abnormal mass effect or midline shift. No extra-axial fluid collections. No acute soft tissue or osseous abnormalities. The mastoid air cells and paranasal sinuses are clear. Cervical Spine: The atlantooccipital and atlantoaxial articulations remain well aligned. No evidence of acute compression deformity or traumatic subluxation. Mild multilevel cervical spondylosis. The vertebral body heights and disc spaces are maintained. There is no prevertebral soft tissue swelling. The thyroid gland and remaining cervical soft tissues are normal in appearance. The lung apices demonstrate no abnormalities. CT/CT cervical spine wo IV con IMPRESSION: 1. No acute intracranial pathology. 2. No evidence of acute cervical spine fracture or traumatic subluxation.
--- NOTE | ~2023-04-19 | CT_ITS ---
EXAMINATION: CT CHEST, ABDOMEN AND PELVIS WITH CONTRAST. CLINICAL INFORMATION: AMS, pain, ill. COMPARISON: No pertinent prior studies are available for comparison. TECHNIQUE: Multidetector volumetric imaging was performed from the thoracic inlet through the pubic symphysis following administration of 75 mL Omnipaque 300 intravenous contrast. Sagittal and coronal reformatted images were obtained on the technologist's workstation. This CT examination was performed using dose optimization techniques as appropriate, variously including the following: *Automated exposure control *Adjustment of mA and/or kV according to patient size (this includes techniques or standardized protocols for targeted exams where dose is matched to indication/reason for exam; i.e. extremities or head) *Use of iterative reconstruction technique DLP: 168 mGy-cm FINDINGS: CHEST: Lung: The lungs are clear without focal opacity or nodule. Mediastinum: Gaseous distention of the esophagus incidentally noted. The central vascular structures are unremarkable. No hilar or mediastinal lymphadenopathy. Pericardium/Pleura: No significant effusion. No pleural mass or thickening. Chest Wall/Axilla: Unremarkable. ABDOMEN/PELVIS: Peritoneal Space:No significant free air or free fluid identified. Liver, Gallbladder, Biliary Tree: The liver is normal in size, shape, and attenuation. No focal hepatic lesion or biliary ductal dilatation is present. The gallbladder is unremarkable with no evidence of radiopaque gallstones, gallbladder wall thickening, or obvious pericholecystic inflammatory changes. Pancreas: Unremarkable. Spleen: Unremarkable. Adrenal Glands: Unremarkable. Kidneys and Ureters: The kidneys are normal in size, shape, and attenuation. No hydronephrosis, hydroureter, or calculi seen. No perinephric stranding. Bladder: Unremarkable. Gastrointestinal Tract: The small and large bowel are unremarkable. The appendix is is not clearly visualized but no focal inflammatory changes seen in the expected location. Abdominal Wall: No significant hernia is appreciated. Lymphovascular Structures: No lymphadenopathy. The aorta is unremarkable. Incidental circumaortic left renal vein. Pelvic Viscera: Unremarkable. Osseus Structures: Unremarkable. CT/CT abdomen pelvis w IV con IMPRESSION: No acute intra-abdominal process seen. Chronic appearing changes as described.
[2023-04-19 15:34] VITALS: BP 100/70; PULSE 86; O2SAT 96; BMI 16.9
--- NOTE | 2023-04-19 16:15 | ED.GENADULT ---
HPI - General Adult General Chief complaint: General Medical Stated complaint: ABD PAIN PER EMS Time Seen by Provider: 04/19/23 16:08 Source: patient, EMS and other (penitentiary staff) Mode of arrival: EMS Limitations: physical limitation (patient is non-verbal at baseline) History of Present Illness HPI narrative: Patient is a 52 year old assigned male at with a history of non-verbal autism and anxiety presenting to the emergency department today with possible abdominal pain. assisted staff states that the patient has been seen 3 times total in the last 3 days including here and at an urgent care for abnormal behavior . assisted staff states that the patient has been grabbing at his right ear and motioning to his abdomen like he is in pain. assisted staff states that the patient is making more noises than usual and they are concerned that he is in pain. Onset (ago): day(s) (3) Related Data Previous Rx's Medication Instructions Recorded naproxen 500 mg tablet 500 mg PO BID PRN pain #14 tabs 01/22/23 prednisone 20 mg tablet 40 mg (2 x 20 mg) PO DAILY 5 days 01/22/23 #10 tabs acetaminophen 500 mg tablet 1,000 mg (2 x 500 mg) PO Q6H 5 02/26/23 days #60 tabs famotidine 20 mg tablet 20 mg PO DAILY #5 tabs 02/26/23 ibuprofen 800 mg tablet 800 mg PO TID 5 days #15 tabs 02/26/23 hydrocortisone 2.5 % topical cream 1 appl topical BID PRN itching #20 04/18/23 grams Allergies Allergy/AdvReac Type Severity Reaction Status Date / Time Benzodiazepines Allergy Unknown UNKNOWN Verified 04/19/23 07:33 [BENZODIAZEPINES] benztropine [BENZTROPINE] Allergy Unknown UNKNOWN Verified 04/19/23 07:33 lorazepam [From ATIVAN] Allergy Unknown UNKNOWN Verified 04/19/23 07:33 tretinoin [From RETIN-A] Allergy Unknown UNKNOWN Verified 04/19/23 07:33 Review of Systems Review of Systems: Yes Other (patient is non-verbal, all ROS answered by penitentiary staff.) Constitutional: Constitutional: Denies fever(s) and Denies night sweats Eyes: Eyes: Denies eye discharge ENT: Denies nasal trauma and Denies neck mass Cardiovascular: Cardiovascular: Denies Loss of Consciousness, Denies dyspnea and Denies dyspnea on exertion Respiratory: Respiratory: Denies dyspnea and Denies dyspnea on exertion Gastrointestinal: Gastrointestinal: Denies diarrhea and Denies vomiting [facility] Past Medical History Attestation statement: The following information was validated with the patient. (all information validated with the patient's penitentiary staff.) Source: old records reviewed, nursing notes reviewed and other (additional history obtained from the patient's penitentiary staff) Medical History Nonverbal Weight disorder Gingivitis Eczema Dysphagia Constipation MR (mitral regurgitation) Mitral valve prolapse Vitamin D deficiency Tachycardia Acne Impulse control disorder Anxiety Cerebral palsy Autism History of pica Social History Social History Unable to assess alcohol history related to: Unable to respond Alcohol intake: never Patient Tobacco Use Status: Never used Tobacco Smoked in Last 30 Days: No Use of substances other than those prescribed or required for medical reasons: No Advance Directives: No Advance Directives Information Provided: No Physical Exam ED Vital Signs: Vital Signs - 24 hr 04/19/23 19:55 04/19/23 21:34 Pulse Rate 98 87 Respiratory Rate 16 18 Blood Pressure 106/64 Pulse Oximetry 95 98 Oxygen Delivery Method Room Air Room Air BMI result Body Mass Index 16.9 Const General: no acute distress, alert and awake Nutritional Appearance: cachectic Limitations: other limitations (patient is non-verbal at baseline) [facility] Head: Yes normal to inspection and Yes atraumatic Ears: external ears normal and Abnormal EAC present excessive cerumen on the right General nose exam: Normal external nose present, no nasal discharge noted and no epistaxis Face and sinus: Yes normal facial exam, No abrasion and No laceration Mouth: Normal oral and palatal mucosa present, no drooling and no muffled voice Eyes General: appearance normal, both eyes and all related structures Periorbital: periorbital findings normal Eyelids: Yes eyelids normal Conjunctivae: conjunctivae normal Pupils: Equal, round and reactive pupils present EOM: EOMs intact bilaterally Neck Neck: Yes normal visual inspection, Yes full ROM and Yes no lymphadenopathy Chest Chest palpation & inspection: normal inspection of the chest Resp Effort & Inspection: normal respiratory effort and able to speak in complete sentences GI Inspection: Yes normal to inspection Palpation (GI): Soft to palpation, not firm, nontender and no guarding Male General Exam: Yes normal external exam Neuro General: moves all extremities Cranial nerves: Yes Equal, round and reactive pupils present Extrem General: Yes normal to inspection, Yes full ROM and Yes capillary refill normal Medications Administered Discontinued Medications Generic Name Dose Route Start Last Admin Trade Name Mita PRN Reason Stop Dose Admin Ketamine HCl 25 mg 04/19/23 19:32 04/19/23 19:39 Ketamine Hcl/Ns 50 Mg/5 Ml Syringe IVPUSH 04/19/23 19:33 25 mg ONCE ONE Administration Ketamine HCl 25 mg 04/19/23 19:43 04/19/23 19:42 Ketamine Hcl/Ns 50 Mg/5 Ml Syringe IVPUSH 04/19/23 19:44 25 mg ONCE ONE Administration Ketorolac Tromethamine 15 mg 04/19/23 18:28 04/19/23 21:30 Ketorolac Tromethamine 15 Mg/Ml Vial IVPUSH 04/19/23 18:29 Not Given ONCE ONE Medical Decision Making Medical Decision Making [facility] Narrative: Patient is a 52 year old assigned male at with a history of non-verbal autism and anxiety presenting to the emergency department today with possible ear pain and/or abdominal pain. Patient's physical exam was as noted in the physical exam portion of this note. Patient's blood work was unremarkable. Patient's urine showed no acute process. Patient's COVID/RSV/Influenza swab was negative. I attempted to explain these results to the patient and the patient's penitentiary staff. Patient's penitentiary staff proceeded to say that the patient is still not at his baseline and they would like use to scan everything . I asked for clarification and the penitentiary staff member stated that the patient is clearly in some type of pain and that they would like use to scan everything to be sure. The staff member went on to say that if we did not scan everything, they would be coming right back to have them done anyway . Patient's head CT, c-spine CT, abdomen/pelvis CT, and chest CTs showed no acute process. I explained my physical exam findings as well as all test results to the patient and the patient's penitentiary staff. I also called the [facility] nursing staff at [phone] and explained all results. I answered all questions asked by the patient's penitentiary staff and the penitentiary nursing staff. I stressed the importance of the patient taking his medication as prescribed. I stressed the importance of the patient following up with his primary care provider. I stressed the importance of the patient returning to the emergency department immediately if his symptoms were to worsen or if he were to develop any dizziness, shortness of breath, difficulty breathing, chest pain, blurry vision, loss of vision, nausea, vomiting, abdominal pain, fever, chills, back pain, or any other complaints. Patient's penitentiary staff and nursing staff verbalized agreement and understanding with this treatment plan and discharge. Differential Diagnosis Differential Diagnoses: The differential diagnosis associated with the presentation includes COVID-19 RSV Influenza Viral illness Admission/Observation Consideration of admission/observation: Escalation of care including admission/observation considered Patient would have been admitted to the hospital had his work up had any findings where hospital admission was appropriate and his clinical presentation warranted hospital admission. Lab Data MDM Lab Attestation statement: I reviewed the patient's lab results. My interpretation of these studies and their corresponding values is that they are grossly normal. 04/19/23 16:37 04/19/23 16:37 Labs: Lab Results 04/19/23 04/19/23 04/19/23 Range/Units 16:37 17:02 17:31 WBC 7.5 (4.8-10.8) X10*3/uL RBC 4.81 (4.60-5.80) X10*6/uL Hgb 15.2 (14.0-18.0) g/dl Hct 44.8 (42.0-52.0) % MCV 93.1 (80.0-98.0) fL MCH 31.6 (27.0-33.0) pg MCHC 33.9 (31.0-36.0) g/dl RDW 12.3 (11.0-16.0) % Plt Count 276 (160-400) X10*3/uL MPV 9.5 (9.4-12.4) fL Immature Gran % (Auto) 0.1 (0.0-0.4) % Neut % (Auto) 69.6 (45-73) % Lymph % (Auto) 17.8 L (20-40) % Sharkey % (Auto) 10.5 (2-11) % Eos % (Auto) 1.6 (0-4) % Baso % (Auto) 0.4 (0-2) % Lymph # (Auto) 1.3 (1.2-4.9) X10*3/uL Sharkey # (Auto) 0.8 (0.1-1.2) X10*3/uL Eos # (Auto) 0.1 (0.0-0.4) X10*3/uL Baso # (Auto) 0.0 (0.0-0.2) X10*3/uL Abs Immat Gran (auto) 0.01 (0.00-0.03) X10*3/uL Absolute Neuts (auto) 5.3 (2.0-8.3) x10*3/uL Absolute Nucleated RBC 0.000 (0.0-0.012) X10*3/uL Nucleated RBC % (auto) 0.0 (0.0-0.2) /100WBC Sodium 143 (135-145) mmol/L Potassium 3.7 (3.3-5.1) mmol/L Chloride 106 (96-108) mmol/L Carbon Dioxide 28 (22-29) mmol/L Anion Gap 13 (12-20) BUN 15 (9-16) mg/dL Creatinine 0.67 (0.5-1.4) mg/dL Estim Creat Clear Calc 91.3 Estimated GFR > 60 Random Glucose 84 (60-115) mg/dL Calcium 9.2 D (8.4-10.2) mg/dL Magnesium 1.9 (1.6-2.6) mg/dL Total Bilirubin 0.6 (0.0-1.0) mg/dL AST 25 (5-37) U/L ALT 21 (0-40) U/L Alkaline Phosphatase 52 (39-117) U/L Total Protein 7.2 (6.5-8.0) g/dL Albumin 4.1 (3.5-5.0) g/dL Urine Color Yellow Urine Appearance Clear Urine pH 5.5 (5.0-9.0) Ur Specific Dixon 1.025 (1.005-1.025) Urine Protein Negative (Neg-Trace) mg/dL Urine Glucose (UA) Negative (Negative) mg/dL Urine Ketones 40 (Negative) mg/dL Urine Blood Negative (Negative) Urine Nitrite Negative (Negative) Ur Leukocyte Esterase Negative (Negative) Influenza Type A (PCR) NEGATIVE (Negative) Influenza Type B (PCR) NEGATIVE (Negative) RSV RNA Qual (PCR) NEGATIVE (Negative) SARS-CoV-2 RNA (RT-PCR) NEGATIVE (Negative) Independent Interpretation I performed an independent interpretation of an: CT Scan Interpretation: My interpretation is in agreement with the radiologist's impression of these imaging studies. EXAMINATION: CT HEAD WITHOUT CONTRAST CT CERVICAL SPINE WITHOUT CONTRAST CLINICAL INFORMATION: Altered mental status. COMPARISON: No similar priors. TECHNIQUE: Contiguous axial imaging was performed from the skull base to vertex without intravenous administration of contrast. Contiguous axial imaging was performed from the upper chest through the skull base without intravenous administration of contrast. Coronal and sagittal reformats were obtained at the acquisition workstation. This CT examination was performed using dose optimization techniques as appropriate, variously including the following: *Automated exposure control *Adjustment of mA and/or kV according to patient size (this includes techniques or standardized protocols for targeted exams where dose is matched to indication/reason for exam; i.e. extremities or head) *Use of iterative reconstruction technique DLP: 639 and 349. mGy-cm FINDINGS: Head: There is no evidence of acute intracranial hemorrhage or edematous territorial infarction. There is no abnormal attenuation within the brain parenchyma. Kahn-white matter differentiation is preserved. The ventricles are normal in size and configuration. No evidence for obstructive hydrocephalus. No abnormal mass effect or midline shift. No extra-axial fluid collections. No acute soft tissue or osseous abnormalities. The mastoid air cells and paranasal sinuses are clear. Cervical Spine: The atlantooccipital and atlantoaxial articulations remain well aligned. No evidence of acute compression deformity or traumatic subluxation. Mild multilevel cervical spondylosis. The vertebral body heights and disc spaces are maintained. There is no prevertebral soft tissue swelling. The thyroid gland and remaining cervical soft tissues are normal in appearance. The lung apices demonstrate no abnormalities. CT/CT head/brain wo IV con IMPRESSION: 1. No acute intracranial pathology. 2. No evidence of acute cervical spine fracture or traumatic subluxation. Dictated By: Rosalia Mobley Signed By: Electronically signed by Rosalia Mobley 04/19/23 210 EXAMINATION: CT CHEST, ABDOMEN AND PELVIS WITH CONTRAST. CLINICAL INFORMATION: AMS, pain, ill. COMPARISON: No pertinent prior studies are available for comparison. TECHNIQUE: Multidetector volumetric imaging was performed from the thoracic inlet through the pubic symphysis following administration of 75 mL Omnipaque 300 intravenous contrast. Sagittal and coronal reformatted images were obtained on the technologist's workstation. This CT examination was performed using dose optimization techniques as appropriate, variously including the following: *Automated exposure control *Adjustment of mA and/or kV according to patient size (this includes techniques or standardized protocols for targeted exams where dose is matched to indication/reason for exam; i.e. extremities or head) *Use of iterative reconstruction technique DLP: 168 mGy-cm FINDINGS: CHEST: Lung: The lungs are clear without focal opacity or nodule. Mediastinum: Gaseous distention of the esophagus incidentally noted. The central vascular structures are unremarkable. No hilar or mediastinal lymphadenopathy. Pericardium/Pleura: No significant effusion. No pleural mass or thickening. Chest Wall/Axilla: Unremarkable. ABDOMEN/PELVIS: Peritoneal Space:No significant free air or free fluid identified. Liver, Gallbladder, Biliary Tree: The liver is normal in size, shape, and attenuation. No focal hepatic lesion or biliary ductal dilatation is present. The gallbladder is unremarkable with no evidence of radiopaque gallstones, gallbladder wall thickening, or obvious pericholecystic inflammatory changes. Pancreas: Unremarkable. Spleen: Unremarkable. Adrenal Glands: Unremarkable. Kidneys and Ureters: The kidneys are normal in size, shape, and attenuation. No hydronephrosis, hydroureter, or calculi seen. No perinephric stranding. Bladder: Unremarkable. Gastrointestinal Tract: The small and large bowel are unremarkable. The appendix is is not clearly visualized but no focal inflammatory changes seen in the expected location. Abdominal Wall: No significant hernia is appreciated. Lymphovascular Structures: No lymphadenopathy. The aorta is unremarkable. Incidental circumaortic left renal vein. Pelvic Viscera: Unremarkable. Osseus Structures: Unremarkable. CT/CT chest w IV con IMPRESSION: No acute intra-abdominal process seen. Chronic appearing changes as described. Dictated By: Baljeet Hogue MD Signed By: Electronically signed by Baljeet Hogue MD 04/19/232047 Radiology Impression Discussion of test interpretation with radiology: I have reviewed the radiologist's reading. Independent Historian Clinical information obtained from an independent historian. History obtained from or confirmed by: EMS (EMS provided additional history and confirmed the history provided by the penitentiary staff) and Other (assisted staff provided additional history and confirmed the history provided by EMS) Critical Care Time Critical Care Time Critical Care Time: Yes Total Critical Care Time: 35 Attestation: I spent 35 minutes of Critical Care Time with this patient. This does not include time spent on separately reported billable procedures. Discharge Plan Discharge Clinical Impression: Viral illness, Excessive cerumen in right ear canal Patient Disposition: Xfer Other Instructions: Viral Syndrome (ED) Additional Instructions: Patient's complete blood count, complete metabolic panel, urinalysis, COVID/Influenza/RSV test, CT scan of the head, CT scan of the c-spine (neck), CT scan of the chest, and CT scan of the abdomen/pelvis were all normal. Patient is most likely experiencing a viral syndrome. Give acetaminophen every 6 hours and ibuprofen every 4 hours as needed for pain. Follow up with your primary care provider. Return to the emergency department immediately if your symptoms worsen or if you develop any dizziness, shortness of breath, difficulty breathing, chest pain, blurry vision, loss of vision, nausea, vomiting, abdominal pain, fever, chills, back pain, or any other complaints. Pt may receive evening 2100 meds on arrival back to penitentiary. Prescriptions: No Action acetaminophen 500 mg tablet 1,000 mg PO Q6H 5 Days Qty: 60 0RF ibuprofen 800 mg tablet 800 mg PO TID 5 Days Qty: 15 0RF famotidine 20 mg tablet 20 mg PO DAILY Qty: 5 0RF hydrocortisone 2.5 % cream 1 appl topical BID PRN (Reason: itching) Qty: 20 0RF naproxen 500 mg tablet 500 mg PO BID PRN (Reason: pain) Qty: 14 0RF Rx Instructions: Take with food prednisone 20 mg tablet 40 mg PO DAILY 5 Days Qty: 10 0RF Referrals: Jason Mason MD [Primary Care Provider] - Interventions: ED Discharge Assessment Last Done: 04/19/23 22:06 Discharge Date/Time: 04/19/23 23:22 Print Language: Trinidadian
[2023-04-19 16:46] LABS: MANUAL DIFF FLAG NO
[2023-04-19 17:00] LABS: Basophils Percent Auto 0.4 % (0-2); Eosinophils Absolute Auto 0.1 X10*3/uL (0.0-0.4); Eosinophils Percent Auto 1.6 % (0-4); Hematocrit 44.8 % (42.0-52.0); Hemoglobin 15.2 g/dl (14.0-18.0); Imm Gran Abs Auto 0.01 X10*3/uL (0.00-0.03); Imm Gran Pct Auto 0.1 % (0.0-0.4); Lymphocytes Absolute Auto 1.3 X10*3/uL (1.2-4.9); Lymphocytes Percent Auto 17.8 % (20-40); Mean Corpuscular HGB Conc 33.9 g/dl (31.0-36.0); Mean Corpuscular Hemoglobin 31.6 pg (27.0-33.0); Mean Corpuscular Volume 93.1 fL (80.0-98.0); Mean Platelet Volume 9.5 fL (9.4-12.4); Monocytes Absolute Auto 0.8 X10*3/uL (0.1-1.2); Monocytes Percent Auto 10.5 % (2-11); Neutrophils Absolute Auto 5.3 x10*3/uL (2.0-8.3); Neutrophils Percent Auto 69.6 % (45-73); Platelet Count 276 X10*3/uL (160-400); Red Blood Count 4.81 X10*6/uL (4.60-5.80); Red Cell Distribution Width 12.3 % (11.0-16.0); White Blood Count 7.5 X10*3/uL (4.8-10.8)
[2023-04-19 17:07] LABS: Alanine Aminotransferase 21 U/L (0-40); Albumin Level 4.1 g/dL (3.5-5.0); Alkaline Phosphatase 52 U/L (39-117); Anion Gap 13 (12-20); Aspartate Amino Transferase 25 U/L (5-37); Bilirubin Total 0.6 mg/dL (0.0-1.0); Blood Urea Nitrogen 15 mg/dL (9-16); Calcium 9.2 mg/dL (8.4-10.2); Carbon Dioxide 28 mmol/L (22-29); Chloride 106 mmol/L (96-108); Creatinine Clr Calc Pharmacy 91.3; Estimated Glomerular Filt Rate > 60; Glucose Random 84 mg/dL (60-115); Magnesium 1.9 mg/dL (1.6-2.6); Potassium 3.7 mmol/L (3.3-5.1); Sodium 143 mmol/L (135-145); Total Protein 7.2 g/dL (6.5-8.0)
[2023-04-19 17:10] LABS: Appearance Urine Clear; Color Urine Yellow; Glucose Urine UA Negative (Negative); Leukocyte Esterase Urine Negative (Negative); Nitrite Urine Negative (Negative); PH 5.5 (5.0-9.0); Specific Gravity - Urine 1.025 (1.005-1.025); Urine Blood Negative (Negative); Urine Ketones 40 mg/dL (Negative); Urine Protein Negative (Neg-Trace)
[2023-04-19 18:18] LABS: Influenza A PCR NEGATIVE (Negative); Influenza B PCR NEGATIVE (Negative); Resp Syncy Virus RNA Qual PCR NEGATIVE (Negative); SARS COV2 PCR INHOUSE NEGATIVE (Negative)
[2023-04-19] MEDS: Ketamine HCl/NS 50 MG/5 ML SYRINGE 25 MG IVPUSH ×2 (19:39→19:42)
--- NOTE | 2023-04-19 19:53 | PC.NURSE ---
Pt medicated with Ketamine per PA by this RN. Pt returns from CT at this time.
[2023-04-19 19:55] VITALS: PULSE 98; RESP 16; O2SAT 95
[2023-04-19 21:34] VITALS: BP 106/64; PULSE 87; RESP 18; O2SAT 98
--- NOTE | 2023-04-19 22:06 | PC.NURSE ---
vss, d/c instructions reviewed w group director at bedside. transport booked.
== END 2023-04-19 23:22 | disposition other institution (70) ==
PROVIDERS: Physician Assistant Medical; Emergency Provider Emergency Medicine; PCP Internal Medicine
DX: B34.9 Viral infection, unspecified (principal); H93.8X1 Other specified disorders of right ear; R10.9 Unspecified abdominal pain; F84.0 Autistic disorder; Z20.822 Contact with and (suspected) exposure to COVID-19; Z20.828 Contact with and (suspected) exposure to other viral communicable diseases
CPT/HCPCS: 0241U; 70450; 71260; 72125; 74177; 80053; 81003; 83735; 85025; 96374; 99284

== ENCOUNTER 2023-04-27 21:18 | Emergency (ER) | payer OTHER, SELFPAY ==
--- NOTE | ~2023-04-27 | CT_ITS ---
EXAMINATION: CT ABDOMEN AND PELVIS WITHOUT CONTRAST CLINICAL INFORMATION: Abdominal pain COMPARISON: 04/19/2023 TECHNIQUE: Multidetector volumetric imaging was performed from the superior aspect of the liver through the pubic symphysis. Sagittal and coronal reformatted images were obtained on the technologist's workstation. This CT examination was performed using dose optimization techniques as appropriate, variously including the following: *Automated exposure control *Adjustment of mA and/or kV according to patient size (this includes techniques or standardized protocols for targeted exams where dose is matched to indication/reason for exam; i.e. extremities or head) *Use of iterative reconstruction technique DLP: 487 mGy-cm FINDINGS: LUNG BASES: The visualized lung bases are unremarkable. LIVER, GALLBLADDER, AND BILIARY TREE: The liver is normal in size, shape, and attenuation. No focal hepatic lesion or biliary ductal dilatation is present. The gallbladder is unremarkable with no evidence of radiopaque gallstones, gallbladder wall thickening, or obvious pericholecystic inflammatory changes. PANCREAS: Unremarkable. SPLEEN: Unremarkable. ADRENAL GLANDS: Unremarkable. KIDNEYS AND URETERS: The kidneys are normal in size, shape, and attenuation. No hydronephrosis, hydroureter, or calculi seen. No perinephric stranding. BLADDER: Unremarkable. GASTROINTESTINAL TRACT: Large volume stool is present throughout the colon. Stomach, small bowel, and colon are normal in caliber. Gaseous distention of the distal esophagus. No intraperitoneal free fluid or free air. No wall thickening or findings of acute inflammation. ABDOMINAL WALL: No significant hernia is appreciated. LYMPH NODES: Normal. VASCULAR: Incidental circumaortic left renal vein. PELVIC VISCERA: The prostate and seminal vesicles are unremarkable. OSSEOUS STRUCTURES: Minimal osteoarthritis in the SI joints. No acute osseous findings. CT/CT abdomen pelvis wo IV con IMPRESSION: Large volume of stool throughout the colon as can be seen with constipation. No acute intra-abdominal or intrapelvic abnormalities are identified.
--- NOTE | ~2023-04-27 | XR_ITS ---
EXAMINATION: XR CHEST CLINICAL INFORMATION: Cough COMPARISON: None available. TECHNIQUE: Frontal view of the chest was obtained. FINDINGS: Bilateral low lung volumes. Bibasilar atelectasis. No pneumothorax. Trachea is midline. Cardiac mediastinal silhouette is not enlarged. No large pleural effusion. Osseous structures are intact. Soft tissues are unremarkable. XR/XR chest 1V IMPRESSION: 1. Bilateral low lung volumes. 2. Bibasilar atelectasis.
--- NOTE | ~2023-04-27 | CT_ITS ---
EXAMINATION: CT HEAD WITHOUT CONTRAST CLINICAL INFORMATION: Altered mental status. COMPARISON: None. TECHNIQUE: Multidetector volumetric imaging of the head was performed without intravenous contrast material. This CT examination was performed using dose optimization techniques as appropriate, variously including the following: *Automated exposure control *Adjustment of mA and/or kV according to patient size (this includes techniques or standardized protocols for targeted exams where dose is matched to indication/reason for exam; i.e. extremities or head) *Use of iterative reconstruction technique Dose: 636 mGy-cm FINDINGS: There is no evidence of acute intracranial hemorrhage or territorial infarction. No abnormal mass-effect or midline shift is seen. Kahn to white matter differentiation is well preserved. No extra axial fluid collections. The ventricles are normal in size and configuration. There is no abnormal attenuation within the brain parenchyma. The soft tissues and osseous structures are normal. The sinuses and mastoid air cells are clear. Motion artifact at the skull base slightly limits assessment in this region. CT/CT head/brain wo IV con IMPRESSION: No acute intracranial pathology.
[2023-04-27 21:27] VITALS: BP 104/63; BP 110/80; PULSE 80; PULSE 91; RESP 18; TEMP 36.2; O2SAT 96; O2SAT 98; BMI 21.2
[2023-04-27 21:31] VITALS: BP 104/63; PULSE 85; RESP 18; TEMP 36.2; O2SAT 99
--- NOTE | 2023-04-27 21:56 | PC.NURSE ---
care home staff at bedside reported that this morning, pt was diaphoretic and sweaty. Pt was not eating regularly throughout the day. Pt normally walks up and down the halls but, per staff, he was walking in circles. When went to redirect, pt collapsed to the ground. There is some blood at the corners of his mouth but staff is unsure where it is coming from. Pt swings at us when we go to touch him. Dr Simeon has signed up for pt, staff member at the bedside.
--- NOTE | 2023-04-27 21:59 | ECG_ITS ---
Test Reason : WEAKNESS Blood Pressure : / mmHG Vent. Rate : 080 BPM Atrial Rate : 080 BPM P-R Int : 126 ms QRS Dur : 104 ms QT Int : 396 ms P-R-T Axes : 071 039 041 degrees QTc Int : 456 ms Normal sinus rhythm Low voltage QRS Borderline ECG No previous ECGs available Referred By: Barbra Simeon Electronically Signed By:CAYDEN TA MD
[2023-04-27 22:22] LABS: MANUAL DIFF FLAG NO
[2023-04-27 22:22] LABS: Glucose, Whole Blood 137 mg/dL (60-115)
[2023-04-27 22:23] LABS: Basophils Absolute Auto 0.1 X10*3/uL (0.0-0.2); Basophils Percent Auto 0.4 % (0-2); Eosinophils Absolute Auto 0.2 X10*3/uL (0.0-0.4); Eosinophils Percent Auto 1.4 % (0-4); Hematocrit 40.5 % (42.0-52.0); Hemoglobin 13.5 g/dl (14.0-18.0); Imm Gran Abs Auto 0.03 X10*3/uL (0.00-0.03); Imm Gran Pct Auto 0.2 % (0.0-0.4); Lymphocytes Absolute Auto 0.9 X10*3/uL (1.2-4.9); Lymphocytes Percent Auto 6.8 % (20-40); Mean Corpuscular HGB Conc 33.3 g/dl (31.0-36.0); Mean Corpuscular Hemoglobin 31.3 pg (27.0-33.0); Monocytes Percent Auto 7.9 % (2-11); Neutrophils Absolute Auto 10.7 x10*3/uL (2.0-8.3); Neutrophils Percent Auto 83.3 % (45-73); Platelet Count 271 X10*3/uL (160-400); Red Blood Count 4.31 X10*6/uL (4.60-5.80); Red Cell Distribution Width 12.1 % (11.0-16.0); White Blood Count 12.9 X10*3/uL (4.8-10.8)
[2023-04-27 22:30] VITALS: BP 101/62; PULSE 71; RESP 13; O2SAT 98
[2023-04-27 22:30] LABS: Prothrombin Time 11.9 SEC (11.1-13.3)
[2023-04-27 22:32] LABS: Partial Thromboplastin Time 28.3 SEC (26.0-36.4)
[2023-04-27 22:34] LABS: Stroke Lab Use COMPLETE
[2023-04-27 22:36] LABS: Anion Gap 10 (12-20); Blood Urea Nitrogen 27 mg/dL (9-16); Calcium 9.3 mg/dL (8.4-10.2); Carbon Dioxide 31 mmol/L (22-29); Chloride 102 mmol/L (96-108); Creatinine Clr Calc Pharmacy 83.7; Estimated Glomerular Filt Rate > 60; Glucose Random 128 mg/dL (60-115); Potassium 5.1 mmol/L (3.3-5.1); Sodium 138 mmol/L (135-145)
[2023-04-27 22:44] LABS: Troponin-I High Sensitivity < 2.7 ng/L (<3.5-35.0)
--- NOTE | 2023-04-27 23:06 | ED_ITS ---
HPI - Weakness General Chief complaint: Weakness Stated complaint: Non verbal w/sudden on set weakness, per ems Time Seen by Provider: 04/27/23 21:28 History of Present Illness HPI Narrative: Patient is a 52-year-old male with a history of being nonverbal. Had episodes where patient is more lethargic. Going around the [place] not eating. This is slightly different than baseline for patient. There is no fever no chills. No coughing or congestion. Patient's symptoms been ongoing for weeks. There was a question otitis media previously. Patient just finished 1 week worth of Augmentin. There is no diarrhea. There is no vomiting. Patient from correction. Not eating. There was a question patient had early single but no rash ever developed. Related Data Previous Rx's Medication Instructions Recorded naproxen 500 mg tablet 500 mg PO BID PRN pain #14 tabs 01/22/23 prednisone 20 mg tablet 40 mg (2 x 20 mg) PO DAILY 5 days 01/22/23 #10 tabs acetaminophen 500 mg tablet 1,000 mg (2 x 500 mg) PO Q6H 5 02/26/23 days #60 tabs famotidine 20 mg tablet 20 mg PO DAILY #5 tabs 02/26/23 ibuprofen 800 mg tablet 800 mg PO TID 5 days #15 tabs 02/26/23 hydrocortisone 2.5 % topical cream 1 appl topical BID PRN itching #20 04/18/23 grams Allergies Allergy/AdvReac Type Severity Reaction Status Date / Time Benzodiazepines Allergy Unknown UNKNOWN Verified 04/19/23 07:33 [BENZODIAZEPINES] benztropine [BENZTROPINE] Allergy Unknown UNKNOWN Verified 04/19/23 07:33 lorazepam [From ATIVAN] Allergy Unknown UNKNOWN Verified 04/19/23 07:33 tretinoin [From RETIN-A] Allergy Unknown UNKNOWN Verified 04/19/23 07:33 Review of Systems 2 Review of Systems: No fever no chills patient nonverbal unable to give detailed review system history obtained through patient's correction [facility] Past Medical History Attestation statement: The following information was validated with the patient. Source: unable to obtain Onset Date is defined in the Problem List Problems that require an onset date and time if occurred within 24 hrs of arrival to the ED Aortic Dissection and Rupture; Neurologic impairment; Cardiopulmonary Arrest; Endotracheal Intubation; Insertion or Replacement of Mechanical Circulatory Assist Device Medical History Nonverbal Weight disorder Gingivitis Eczema Dysphagia Constipation MR (mitral regurgitation) Mitral valve prolapse Vitamin D deficiency Tachycardia Acne Impulse control disorder Anxiety Cerebral palsy Autism History of pica Social History Social History Unable to assess alcohol history related to: Unable to respond Alcohol intake: never Patient Tobacco Use Status: Never used Tobacco Smoked in Last 30 Days: No Use of substances other than those prescribed or required for medical reasons: No Advance Directives: No Advance Directives Information Provided: No Physical Exam 2 Vital Signs: Vital Signs: Last Vital Signs Temp 97.2 F 04/27/23 21:31 Pulse 94 04/28/23 02:18 Resp 14 04/28/23 02:18 BP 118/73 04/28/23 02:18 Pulse Ox 97 04/28/23 02:18 O2 Del Method Room Air 04/28/23 02:18 BMI result Body Mass Index 21.2 Appearance: Alert. No acute distress. Eyes: Pupils equal, round and reactive to light. ENT: Pharynx normal. Neck: Normal inspection. Neck supple. No lymph nodes noted. No crepitus CVS: Normal heart rate and rhythm. Pulses normal. Normal S1 and S2 Respiratory: No respiratory distress. Breath sounds normal. No Wheezing. No rales Abdomen: Soft and nontender. No rigidity. No distention. good BS x4 Skin: Skin warm and dry. Normal skin color. Normal skin turgor. Extremities: No lower extremity edema. Neurovascular intact to all extremities. No Lacerations. No Rash Neuro: Oriented times 0 moving extremities Medications Administered Discontinued Medications Generic Name Dose Route Start Last Admin Trade Name Freq PRN Reason Stop Dose Admin Diphenhydramine HCl 25 mg 04/27/23 23:58 04/28/23 00:08 Diphenhydramine Hcl 50 Mg/Ml Vial IVPUSH 04/27/23 23:59 25 mg ONCE ONE Administration Ketamine HCl 50 mg 04/28/23 01:08 04/28/23 01:15 Ketamine Hcl 500 Mg/5 Ml Vial IM 04/28/23 01:09 50 mg ONCE ONE Administration Olanzapine 10 mg 04/28/23 00:13 04/28/23 00:41 Olanzapine Odt 10 Mg Tab.Rapdis KAMARINGU 04/28/23 00:14 10 mg ONCE ONE Administration Medical Decision Making Medical Decision Making [facility] Narrative: Patient came from a correction. He had weakness. On EMS arrival patient did not have any focal weakness. Patient baseline is nonverbal. Has a history of cerebral palsy. Patient's sugar was normal. There is no evidence of hypoglycemia. My interpretation of patient's EKG showed a sinus pattern heart rate is 80 NC QRS QTC within normal limits is no acute ST segment elevation. Chest x-ray was done my interpretation patient's chest x-ray is grossly negative for pneumonia. Patient's CK is 263 no evidence for rhabdo. Patient's troponin is less than 2.7. Normal EKG unlikely secondary to ACS. Glucose was 137 no evidence for hypoglycemia patient has history of cerebral palsy baseline nonverbal. Now back to baseline. Require sedation in order to get patient to CT scanner. Initially attempted to use Benadryl but failed. Attempted to use Zyprexa but failed. Finally a dose of ketamine was given. We were able to get the CT scan of the head. I reviewed the CT scan of the head was grossly negative for any acute evidence of bleeding. Review radiology's reading of the CT scan. CT scan of the abdomen pelvis showed no obstruction no abscess no perforation it did show a lot of stool. Patient's urine showed no signs of infection. Patient's flu COVID RSV were all negative. Will discharge patient home. Currently in stable condition. Differential Diagnosis Differential Diagnoses: The differential diagnosis associated with the presentation includes Infection including flu RSV COVID, UTI, electrolyte disturbance Admission/Observation Consideration of admission/observation: Escalation of care including admission/observation considered Lab Data [facility] Lab Attestation statement: I reviewed the patient's lab results. 04/27/23 22:17 04/27/23 22:17 Labs: Lab Results 04/27/23 04/27/23 04/27/23 Range/Units 22:08 22:17 23:31 WBC 12.9 H (4.8-10.8) X10*3/uL RBC 4.31 L (4.60-5.80) X10*6/uL Hgb 13.5 L (14.0-18.0) g/dl Hct 40.5 L (42.0-52.0) % MCV 94.0 (80.0-98.0) fL MCH 31.3 (27.0-33.0) pg MCHC 33.3 (31.0-36.0) g/dl RDW 12.1 (11.0-16.0) % Plt Count 271 (160-400) X10*3/uL MPV 9.0 L (9.4-12.4) fL Immature Gran % (Auto) 0.2 (0.0-0.4) % Neut % (Auto) 83.3 H (45-73) % Lymph % (Auto) 6.8 L (20-40) % [place] % (Auto) 7.9 (2-11) % Eos % (Auto) 1.4 (0-4) % Baso % (Auto) 0.4 (0-2) % Lymph # (Auto) 0.9 L (1.2-4.9) X10*3/uL [place] # (Auto) 1.0 (0.1-1.2) X10*3/uL Eos # (Auto) 0.2 (0.0-0.4) X10*3/uL Baso # (Auto) 0.1 (0.0-0.2) X10*3/uL Abs Immat Gran (auto) 0.03 (0.00-0.03) X10*3/uL Absolute Neuts (auto) 10.7 H (2.0-8.3) x10*3/uL Absolute Nucleated RBC 0.000 (0.0-0.012) X10*3/uL Nucleated RBC % (auto) 0.0 (0.0-0.2) /100WBC PT 11.9 (11.1-13.3) SEC INR 1.0 (0.9-1.1) APTT 28.3 (26.0-36.4) SEC Sodium 138 (135-145) mmol/L Potassium 5.1 D (3.3-5.1) mmol/L Chloride 102 (96-108) mmol/L Carbon Dioxide 31 H (22-29) mmol/L Anion Gap 10 L (12-20) BUN 27 H (9-16) mg/dL Creatinine 0.76 (0.5-1.4) mg/dL Estim Creat Clear Calc 83.7 Estimated GFR > 60 POC Glucose 137 H (60-115) mg/dL Random Glucose 128 H (60-115) mg/dL Calcium 9.3 (8.4-10.2) mg/dL Total Creatine Kinase 263 H (38-174) U/L Troponin I High Sens < 2.7 (<3.5-35.0) ng/L Urine Color Urine Appearance Urine pH (5.0-9.0) Ur Specific [place] (1.005-1.025) Urine Protein (Neg-Trace) mg/dL Urine Glucose (UA) (Negative) mg/dL Urine Ketones (Negative) mg/dL Urine Blood (Negative) Urine Nitrite (Negative) Ur Leukocyte Esterase (Negative) Influenza Type A (PCR) NEGATIVE (Negative) Influenza Type B (PCR) NEGATIVE (Negative) RSV RNA Qual (PCR) NEGATIVE (Negative) SARS-CoV-2 RNA (RT-PCR) NEGATIVE (Negative) 04/28/23 Range/Units 02:27 WBC (4.8-10.8) X10*3/uL RBC (4.60-5.80) X10*6/uL Hgb (14.0-18.0) g/dl Hct (42.0-52.0) % MCV (80.0-98.0) fL MCH (27.0-33.0) pg MCHC (31.0-36.0) g/dl RDW (11.0-16.0) % Plt Count (160-400) X10*3/uL MPV (9.4-12.4) fL Immature Gran % (Auto) (0.0-0.4) % Neut % (Auto) (45-73) % Lymph % (Auto) (20-40) % [place] % (Auto) (2-11) % Eos % (Auto) (0-4) % Baso % (Auto) (0-2) % Lymph # (Auto) (1.2-4.9) X10*3/uL [place] # (Auto) (0.1-1.2) X10*3/uL Eos # (Auto) (0.0-0.4) X10*3/uL Baso # (Auto) (0.0-0.2) X10*3/uL Abs Immat Gran (auto) (0.00-0.03) X10*3/uL Absolute Neuts (auto) (2.0-8.3) x10*3/uL Absolute Nucleated RBC (0.0-0.012) X10*3/uL Nucleated RBC % (auto) (0.0-0.2) /100WBC PT (11.1-13.3) SEC INR (0.9-1.1) APTT (26.0-36.4) SEC Sodium (135-145) mmol/L Potassium (3.3-5.1) mmol/L Chloride (96-108) mmol/L Carbon Dioxide (22-29) mmol/L Anion Gap (12-20) BUN (9-16) mg/dL Creatinine (0.5-1.4) mg/dL Estim Creat Clear Calc Estimated GFR POC Glucose (60-115) mg/dL Random Glucose (60-115) mg/dL Calcium (8.4-10.2) mg/dL Total Creatine Kinase (38-174) U/L Troponin I High Sens (<3.5-35.0) ng/L Urine Color Yellow Urine Appearance Clear Urine pH 7.5 (5.0-9.0) Ur Specific [place] 1.015 (1.005-1.025) Urine Protein Negative (Neg-Trace) mg/dL Urine Glucose (UA) Negative (Negative) mg/dL Urine Ketones Negative (Negative) mg/dL Urine Blood Negative (Negative) Urine Nitrite Negative (Negative) Ur Leukocyte Esterase Negative (Negative) Influenza Type A (PCR) (Negative) Influenza Type B (PCR) (Negative) RSV RNA Qual (PCR) (Negative) SARS-CoV-2 RNA (RT-PCR) (Negative) Independent Interpretation I performed an independent interpretation of an: EKG (Sinus heart rate is 80 NC QRS QTC within normal limits is no acute ST segment elevation), Plain X-Ray (Chest x-ray was negative no pneumonia) and CT Scan (CT scan of the head was grossly negative there is no evidence of bleeding) Radiology Impression Discussion of test interpretation with radiology: I have reviewed the radiologist's reading. 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 External Record Review External record reviewed: Inpatient record Prescription Management I considered prescription management with: Pain Medication, Antiviral and Antibiotic Not needed Chronic Conditions Cerebral palsy Discharge Plan Discharge Clinical Impression: Weakness Patient Disposition: Home, Self-Care Instructions: Weakness (ED) Prescriptions: No Action acetaminophen 500 mg tablet 1,000 mg PO Q6H 5 Days Qty: 60 0RF ibuprofen 800 mg tablet 800 mg PO TID 5 Days Qty: 15 0RF famotidine 20 mg tablet 20 mg PO DAILY Qty: 5 0RF hydrocortisone 2.5 % cream 1 appl topical BID PRN (Reason: itching) Qty: 20 0RF naproxen 500 mg tablet 500 mg PO BID PRN (Reason: pain) Qty: 14 0RF Rx Instructions: Take with food prednisone 20 mg tablet 40 mg PO DAILY 5 Days Qty: 10 0RF Referrals: Jason Mason MD [Primary Care Provider] - 04/30/23
[2023-04-28] MEDS: diphenhydrAMINE HCL 50 MG/ML VIAL 25 MG IVPUSH (00:08)
[2023-04-28 00:15] VITALS: BP 95/51; PULSE 71; RESP 16; O2SAT 98
[2023-04-28 00:15] LABS: Influenza A PCR NEGATIVE (Negative); Influenza B PCR NEGATIVE (Negative); Resp Syncy Virus RNA Qual PCR NEGATIVE (Negative); SARS COV2 PCR INHOUSE NEGATIVE (Negative)
[2023-04-28] MEDS: OLANZapine ODT 10 MG TAB.RAPDIS TRANSLINGU (00:41)
--- NOTE | 2023-04-28 00:46 | PC.NURSE ---
Pt is very restless, unable to sit still for CT scans. Pt given IV benadryl without success. Administered translingual zyprexa and CT will attempt again shortly.
[2023-04-28] MEDS: Ketamine HCl 500 MG/5 ML VIAL 50 MG IM ×2 (01:15→01:28)
--- NOTE | 2023-04-28 01:54 | PC.NURSE ---
Pt required a total of 100mg of ketamine to obtain CT scans. 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 Is now resting in bed with staff a the bedside
[2023-04-28 02:18] VITALS: BP 118/73; PULSE 94; RESP 14; O2SAT 97
--- NOTE | 2023-04-28 02:31 | PC.NURSE ---
Pt straight cath'd. Voided approx 150mL clear, yellow urine. Pt had a wet brief on prior to catheterization. Sample collected and sent Pt was cleaned, given new luz gm, and brief supplied by [facility] staff.
[2023-04-28 02:32] LABS: Appearance Urine Clear; Color Urine Yellow; Glucose Urine UA Negative (Negative); Leukocyte Esterase Urine Negative (Negative); Nitrite Urine Negative (Negative); PH 7.5 (5.0-9.0); Specific Gravity - Urine 1.015 (1.005-1.025); Urine Blood Negative (Negative); Urine Ketones Negative (Negative); Urine Protein Negative (Neg-Trace)
--- NOTE | 2023-04-28 02:56 | MHC.EDTECH ---
weakness generalized per pt, provider asked to document.
[2023-04-28 03:10] LABS: Bacteria Urine None Seen (None Seen); Hyaline Casts Urine 0-2 /LPF (0-2); RBC Urine 0-2 /HPF (0-2); Squamous Epithelial Cell Urine 0-2 /HPF (0-2); WBC Urine 0-5 /HPF (0-5)
--- NOTE | 2023-04-28 03:33 | MHC.EDTECH ---
[facility] devon Reyes
== END 2023-04-28 04:16 | disposition home or self-care (01) ==
PROVIDERS: Emergency Provider Emergency Medicine Emergency Medical Services; PCP Internal Medicine
DX: R53.1 Weakness (principal); G80.9 Cerebral palsy, unspecified; R51.9 Headache, unspecified; R07.89 Other chest pain; R10.2 Pelvic and perineal pain; Z79.899 Other long term (current) drug therapy; Z20.828 Contact with and (suspected) exposure to other viral communicable diseases; Z20.822 Contact with and (suspected) exposure to COVID-19
CPT/HCPCS: 0241U; 36415; 70450; 71045; 74176; 80048; 81001; 82550; 82947; 84484; 85025; 85610; 85730; 93005; 96372; 96374; 99285; J1200

== ENCOUNTER → 2023-04-27 21:59 | Outpatient (BNV) | payer OTHER, SELFPAY | PROVIDERS: Emergency Provider Emergency Medicine Emergency Medical Services; PCP Internal Medicine; Visit Provider Internal Medicine Cardiovascular Disease | DX: R53.1 Weakness (principal) | CPT/HCPCS: 93010 ==

== ENCOUNTER 2023-08-05 22:51 | Observation (INO) | payer OTHER, SELFPAY ==
--- NOTE | ~2023-08-05 | XR_ITS ---
EXAMINATION: XR CHEST CLINICAL INFORMATION: Near-syncope COMPARISON: 04/27/2023 TECHNIQUE: Frontal view of the chest was obtained. FINDINGS: No significant abnormality is noted involving the heart, lungs, mediastinum, bony thorax or soft tissues. No interval change when compared to the 04/27/2023 study. XR/XR chest 1V IMPRESSION: Unremarkable examination.
[2023-08-05 22:59] VITALS: BP 100/60; BP 105/68; PULSE 54; PULSE 62; RESP 14; TEMP 36.6; O2SAT 99; BMI 21.1
--- NOTE | 2023-08-05 23:19 | ED.GENADULT ---
HPI - General Adult General Chief complaint: General Medical Stated complaint: From GH, autistic/non verbal, bp 81/54, near synco Time Seen by Provider: 08/05/23 23:19 Source: family (Caregiver), EMS, RN notes reviewed and old records reviewed Mode of arrival: EMS Limitations: no limitations History of Present Illness HPI narrative: 52-year-old male history of nonverbal autism and anxiety presented to the emergency department by EMS with his caregiver after was witnessed near syncope, patient was found to be hypotensive 81/54 and bradycardic at 51, reportedly by caregiver patient has been acting at his baseline all day today until with witnessed by his caregiver when he stood up patient almost passed out, caregiver can not confirm if he fully passed out or not, patient was held to the couch did not fall, did not hit his head. Otherwise no fever, no coughing, no sign pain. Related Data Previous Rx's ?Medication ?Instructions ?Recorded naproxen 500 mg tablet 500 mg PO BID PRN pain #14 tabs 01/22/23 prednisone 20 mg tablet 40 mg (2 x 20 mg) PO DAILY 5 days 01/22/23 #10 tabs acetaminophen 500 mg tablet 1,000 mg (2 x 500 mg) PO Q6H 5 02/26/23 days #60 tabs famotidine 20 mg tablet 20 mg PO DAILY #5 tabs 02/26/23 ibuprofen 800 mg tablet 800 mg PO TID 5 days #15 tabs 02/26/23 hydrocortisone 2.5 % topical cream 1 appl topical BID PRN itching #20 04/18/23 grams Allergies Allergy/AdvReac Type Severity Reaction Status Date / Time Benzodiazepines Allergy Unknown UNKNOWN Verified 08/05/23 23:03 [BENZODIAZEPINES] benztropine [BENZTROPINE] Allergy Unknown UNKNOWN Verified 08/05/23 23:03 lorazepam [From ATIVAN] Allergy Unknown UNKNOWN Verified 08/05/23 23:03 tretinoin [From RETIN-A] Allergy Unknown UNKNOWN Verified 08/05/23 23:03 Review of Systems Review of Systems: Yes Unobtainable due to mental condition (Poor historian and nonverbal autism.) PMFSH Past Medical History Medical History Nonverbal Weight disorder Gingivitis Eczema Dysphagia Constipation MR (mitral regurgitation) Mitral valve prolapse Vitamin D deficiency Tachycardia Acne Impulse control disorder Anxiety Cerebral palsy Autism History of pica Social History Social History Unable to assess alcohol history related to: Unable to respond Alcohol intake: never Patient Tobacco Use Status: Never used Tobacco Advance Directives: No Advance Directives Information Provided: Yes Physical Exam ED Vital Signs: Vital Signs - 24 hr 08/05/23 22:59 08/06/23 00:24 08/06/23 01:13 Temperature 97.8 F 96.6 F L Pulse Rate 54 54 58 Respiratory Rate 14 14 Blood Pressure 105/68 94/58 L 92/55 L Pulse Oximetry 99 96 Oxygen Delivery Method Room Air Room Air 08/06/23 01:13 08/06/23 01:15 Temperature Pulse Rate 57 67 Respiratory Rate Blood Pressure 97/65 Pulse Oximetry Oxygen Delivery Method BMI result Body Mass Index 21.1 Vital signs have been reviewed and appear to be correct. Blood pressure elevated. Heart rate normal. Respiratory rate normal. Temperature normal. Oxygen saturation normal. Appearance: Alert. Nonverbal, disregard examiner. Head: Normal external exam. Normocephalic. Atraumatic. No Erazo signs noted. No raccoon eyes noted Eyes: PERRLA. EOMI. Conjunctiva and sclera normal. Eyelids normal. ENT: TM's Normal. Pharynx normal. Uvula midline. Moist mucous membranes. No trismus noted. No drooling noted. No muffled voice noted. Neck: Normal inspection. Neck supple. FROM. No adenopathy. Thyroid Normal. No meningeal signs. No neck mass noted. CVS: Normal heart rate and rhythm. Heart sound normal. No murmurs noted. Pulses normal throughout. Respiratory: No respiratory distress. Painless inspiration. Breath sounds normal. No wheezes/rales/rhonchi noted. Chest nontender. No accessory muscle usage noted or decreased air movement noted. Abdomen: Soft and nontender. Bowel sounds normal in all 4 quadrants. No distention noted. No organomegaly noted. No visible injury noted. Back: No CVA tenderness. Full range of motion noted. Skin: Skin warm and dry. Normal skin color. Normal skin turgor. No rashes/lesions/lacerations noted. Extremities: No lower extremity edema. Extremities exhibit normal range of motion. Extremities nontender. Neuro: Nonverbal, disregard examiner. Cranial nerve exam: II-XII are grossly intact No motor deficit. No sensory deficit. Reflexes normal. Course Reevaluation(s) Reevaluation #1: Near syncope witnessed by staff, patient is nonverbal and unable to give reliable history, had hypotension and bradycardia at the time of the event, patient appeared comfortable in the ED, labs are unremarkable, will admit the patient for further cardiac monitoring. Time: 01:29 Medications Administered Discontinued Medications Generic Name Dose Route Start Last Admin Trade Name Freq PRN Reason Stop Dose Admin Sodium Chloride 1,000 mls @ 999 mls/hr 08/05/23 23:29 08/06/23 00:22 Ns IV 08/06/23 00:29 999 mls/hr .Q1H1M ONE Administration Medical Decision Making Differential Diagnosis Differential Diagnoses: The differential diagnosis associated with the presentation includes (Syncope/near syncope, cardiac event, pneumonia, pneumothorax, dehydration, electrolyte derangement, orthostatic syncopal episode,) Admission/Observation Consideration of admission/observation: Escalation of care including admission/observation considered Consult Healthcare Provider Management of the patient was discussed with: Hospitalist (Dr. Puente) Lab Data MDM Lab Attestation statement: I reviewed the patient's lab results. 08/06/23 00:18 08/06/23 00:18 Labs: Lab Results 08/05/23 08/06/23 Range/Units 00:21 00:18 WBC 9.6 (4.8-10.8) X10*3/uL RBC 4.28 L (4.60-5.80) X10*6/uL Hgb 13.5 L (14.0-18.0) g/dl Hct 40.3 L (42.0-52.0) % MCV 94.2 (80.0-98.0) fL MCH 31.5 (27.0-33.0) pg MCHC 33.5 (31.0-36.0) g/dl RDW 11.9 (11.0-16.0) % Plt Count 232 (160-400) X10*3/uL MPV 9.5 (9.4-12.4) fL Immature Gran % (Auto) 0.3 (0.0-0.4) % Neut % (Auto) 64.9 (45-73) % Lymph % (Auto) 18.2 L (20-40) % [place] % (Auto) 9.6 (2-11) % Eos % (Auto) 6.5 H (0-4) % Baso % (Auto) 0.5 (0-2) % Lymph # (Auto) 1.7 (1.2-4.9) X10*3/uL [place] # (Auto) 0.9 (0.1-1.2) X10*3/uL Eos # (Auto) 0.6 H (0.0-0.4) X10*3/uL Baso # (Auto) 0.1 (0.0-0.2) X10*3/uL Abs Immat Gran (auto) 0.03 (0.00-0.03) X10*3/uL Absolute Neuts (auto) 6.2 (2.0-8.3) x10*3/uL Absolute Nucleated RBC 0.000 (0.0-0.012) X10*3/uL Nucleated RBC % (auto) 0.0 (0.0-0.2) /100WBC Sodium 139 (135-145) mmol/L Potassium 4.1 (3.3-5.1) mmol/L Chloride 104 (96-108) mmol/L Carbon Dioxide 29 (22-29) mmol/L Anion Gap 10 L (12-20) BUN 23 H (9-16) mg/dL Creatinine 0.71 (0.5-1.4) mg/dL Estim Creat Clear Calc 89.2 Estimated GFR > 60 Random Glucose 95 (60-115) mg/dL Calcium 9.3 (8.4-10.2) mg/dL Total Bilirubin 0.4 (0.0-1.0) mg/dL Direct Bilirubin 0.2 (0.0-0.5) mg/dL AST 19 (5-37) U/L ALT 19 (0-40) U/L Alkaline Phosphatase 48 (39-117) U/L Troponin I High Sens < 2.7 (<3.5-35.0) ng/L B-Natriuretic Peptide 23 (<100) pg/mL Total Protein 6.6 (6.5-8.0) g/dL Albumin 3.7 (3.5-5.0) g/dL Lipase 46 (8-78) U/L Influenza Type A (PCR) NEGATIVE (Negative) Influenza Type B (PCR) NEGATIVE (Negative) RSV RNA Qual (PCR) NEGATIVE (Negative) SARS-CoV-2 RNA (RT-PCR) NEGATIVE (Negative) Independent Interpretation I performed an independent interpretation of an: EKG (Sinus bradycardia at 52 beats per minutes, normal intervals, nonspecific T-wave flattening lead III.) and Plain X-Ray (Unremarkable examination.) Radiology Impression Discussion of test interpretation with radiology: I have reviewed the radiologist's reading. Chronic Conditions Patient?s care impacted by: Other (Nonverbal.) Discharge Plan Discharge Clinical Impression: Near syncope Patient Disposition: Admitted As Inpatient Prescriptions: No Action acetaminophen 500 mg tablet 1,000 mg PO Q6H 5 Days Qty: 60 0RF ibuprofen 800 mg tablet 800 mg PO TID 5 Days Qty: 15 0RF famotidine 20 mg tablet 20 mg PO DAILY Qty: 5 0RF hydrocortisone 2.5 % cream 1 appl topical BID PRN (Reason: itching) Qty: 20 0RF naproxen 500 mg tablet 500 mg PO BID PRN (Reason: pain) Qty: 14 0RF Rx Instructions: Take with food prednisone 20 mg tablet 40 mg PO DAILY 5 Days Qty: 10 0RF Print Language: Ecuadorean
--- NOTE | 2023-08-05 23:28 | ECG_ITS ---
Test Reason : NEAR SYNCOPE Blood Pressure : / mmHG Vent. Rate : 052 BPM Atrial Rate : 052 BPM P-R Int : 134 ms QRS Dur : 104 ms QT Int : 438 ms P-R-T Axes : 049 086 042 degrees QTc Int : 407 ms Sinus bradycardia Low voltage QRS Borderline ECG When compared with ECG of 27-APR-2023 22:36, Vent. rate has decreased BY 28 BPM Referred By: Kim Carr Electronically Signed By:PAM REECE
[2023-08-06] VITALS (9 sets, daily range): BP systolic 90–104; BP diastolic 55–68; PULSE 39–75; RESP 12–16; TEMP 35.9–37.1; O2SAT 0–99
[2023-08-06] MEDS: 0.9 % Sodium Chloride 1,000 ML 999 ML IV (00:22)
[2023-08-06 00:24] LABS: MANUAL DIFF FLAG NO
[2023-08-06 00:33] LABS: Basophils Absolute Auto 0.1 X10*3/uL (0.0-0.2); Basophils Percent Auto 0.5 % (0-2); Eosinophils Absolute Auto 0.6 X10*3/uL (0.0-0.4); Eosinophils Percent Auto 6.5 % (0-4); Hematocrit 40.3 % (42.0-52.0); Hemoglobin 13.5 g/dl (14.0-18.0); Imm Gran Abs Auto 0.03 X10*3/uL (0.00-0.03); Imm Gran Pct Auto 0.3 % (0.0-0.4); Lymphocytes Absolute Auto 1.7 X10*3/uL (1.2-4.9); Lymphocytes Percent Auto 18.2 % (20-40); Mean Corpuscular HGB Conc 33.5 g/dl (31.0-36.0); Mean Corpuscular Hemoglobin 31.5 pg (27.0-33.0); Mean Corpuscular Volume 94.2 fL (80.0-98.0); Mean Platelet Volume 9.5 fL (9.4-12.4); Monocytes Absolute Auto 0.9 X10*3/uL (0.1-1.2); Monocytes Percent Auto 9.6 % (2-11); Neutrophils Absolute Auto 6.2 x10*3/uL (2.0-8.3); Neutrophils Percent Auto 64.9 % (45-73); Platelet Count 232 X10*3/uL (160-400); Red Blood Count 4.28 X10*6/uL (4.60-5.80); Red Cell Distribution Width 11.9 % (11.0-16.0); White Blood Count 9.6 X10*3/uL (4.8-10.8)
[2023-08-06 00:49] LABS: Alanine Aminotransferase 19 U/L (0-40); Albumin Level 3.7 g/dL (3.5-5.0); Alkaline Phosphatase 48 U/L (39-117); Anion Gap 10 (12-20); Aspartate Amino Transferase 19 U/L (5-37); B Type Natriuretic Peptide 23 pg/mL (<100); Bilirubin Direct 0.2 mg/dL (0.0-0.5); Bilirubin Total 0.4 mg/dL (0.0-1.0); Blood Urea Nitrogen 23 mg/dL (9-16); Calcium 9.3 mg/dL (8.4-10.2); Carbon Dioxide 29 mmol/L (22-29); Chloride 104 mmol/L (96-108); Creatinine Clr Calc Pharmacy 89.2; Estimated Glomerular Filt Rate > 60; Glucose Random 95 mg/dL (60-115); Lipase 46 U/L (8-78); Potassium 4.1 mmol/L (3.3-5.1); Sodium 139 mmol/L (135-145); Total Protein 6.6 g/dL (6.5-8.0)
[2023-08-06 00:55] LABS: Troponin-I High Sensitivity < 2.7 ng/L (<3.5-35.0)
[2023-08-06 01:11] LABS: Influenza A PCR NEGATIVE (Negative); Influenza B PCR NEGATIVE (Negative); Resp Syncy Virus RNA Qual PCR NEGATIVE (Negative); SARS COV2 PCR INHOUSE NEGATIVE (Negative)
--- NOTE | 2023-08-06 01:25 | MHC.EDTECH ---
PT INCONTINENT OF URINE. WITH ASSISTANCE FROM STAFF MEMBER PT WAS CHANGED AND CLEANED. COMPLETE BEDDING CHANGE DONE AND NEW BRIEF PLACED ON PT. RN AWARE
--- NOTE | 2023-08-06 02:50 | PC.NURSE ---
Verbal order from Dr. Puente to straight cath pt in order to obtain a urine sample as pt is incontinent of urine. Bladder scan showed 136cc of urine. Urine cath performed. 75cc of clear yellow urine in the collection bag. Pt tolerated procedure well.
[2023-08-06 02:52] LABS: Appearance Urine Clear; Color Urine Yellow; Glucose Urine UA Negative (Negative); Leukocyte Esterase Urine Negative (Negative); Nitrite Urine Negative (Negative); PH 6.5 (5.0-9.0); Specific Gravity - Urine <= 1.005 (1.005-1.025); UMIC TRIGGER UACC YES; Urine Blood Moderate (2+) (Negative); Urine Ketones Negative (Negative); Urine Protein Negative (Neg-Trace)
[2023-08-06 02:58] LABS: Bacteria Urine None Seen (None Seen); Hyaline Casts Urine 0-2 /LPF (0-2); RBC Urine 0-2 /HPF (0-2); Squamous Epithelial Cell Urine 0-2 /HPF (0-2); WBC Urine 0-5 /HPF (0-5)
[2023-08-06 03:01] LABS: Amphetamine Screen Urine Not Detected (Not Detect); Barbiturates, Urine Not Detected (Not Detect); Benzodiazepines Screen Urine Not Detected (Not Detect); Buprenorphine Scr Not Detected (Not Detect); Cannabinoid Screen Urine Not Detected (Not Detect); Cocaine Screen Urine Not Detected (Not Detect); Fentanyl, urine Not Detected (Not Detect); Methadone Screen, Urine Not Detected (Not Detect); Opiate Screen Urine Not Detected (Not Detect); Oxycodone Screen Urine Not Detected (Not Detect); Phencyclidine Screen Urine Not Detected (Not Detect)
[2023-08-06 03:04] LABS: Thyroid Stimulating Hormone 2.04 uIU/mL (0.32-4.0)
--- NOTE | 2023-08-06 03:22 | PM.IMHP ---
History of Present Illness Date of Service: 08/06/23 Attending physician on admission: Cheryl Nguyen Chief Complaint: Patient became very shaky Baljeet Melo is a 52 years old man with past medical history significant for autism disorder, cerebral palsy, MR, tachycardia, mild systolic dysfunction and mitral valve prolapse was brought to the emergency department after he was noted to be shaky . HPI was provided by patient's [facility] caregiver as the patient is nonverbal. Caregiver stated that the patient usually has low normal blood pressure (baseline SBP is around 90) but last night around 21:00 the patient became shaky and fell back onto bed. He was found to have a blood pressure of 81/54, heart rate 51 and temperature of 98.2 degrees. Patient has not been vomiting or having diarrhea. He has not been noted to be in pain and has been eating and drinking fluids as usual. Patient does not use diuretics or hypertensive medications. He gets Valium as needed but caregiver unsure if patient had a recent dose of this. Per EMS blood pressure was 100/60. In the emergency department, he was initially found with a blood pressure of 94/58 (which is at baseline), temp 96.6 degrees and heart rate of 54 bpm. O2 sats are normal on room air. Blood workup including CBC, CMP, BNP, troponin, lipase and TSH are unremarkable. Urinalysis showed no evidence of urinary tract infection. Urine drug screen is negative. Viral testing for influenza, COVID-19 and RSV is negative. CXR is negative. ECG showed sinus bradycardia, heart rate 52 beats per minute and low voltage without ischemic changes. ED tx: NS 1 L bolus. Review of Systems Review of Systems: Yes Unobtainable due to mental status [facility] Medical History Nonverbal Weight disorder Gingivitis Eczema Dysphagia Constipation MR (mitral regurgitation) Mitral valve prolapse Vitamin D deficiency Tachycardia Acne Impulse control disorder Anxiety Cerebral palsy Autism History of pica Social History Unable to assess alcohol history related to: Unable to respond Alcohol intake: never Patient Tobacco Use Status: Never used Tobacco Smoked in Last 30 Days: No Use of substances other than those prescribed or required for medical reasons: No Advance Directives: No Advance Directives Information Provided: Yes Nutrition Risks: No Nutritional Risk Meds Allergies Allergy/AdvReac Type Severity Reaction Status Date / Time Benzodiazepines Allergy Unknown UNKNOWN Verified 08/05/23 23:03 [BENZODIAZEPINES] benztropine [BENZTROPINE] Allergy Unknown UNKNOWN Verified 08/05/23 23:03 lorazepam [From ATIVAN] Allergy Unknown UNKNOWN Verified 08/05/23 23:03 tretinoin [From RETIN-A] Allergy Unknown UNKNOWN Verified 08/05/23 23:03 Active Medications: Current Medications Acetaminophen (Acetaminophen 325 Mg Tablet) 650 mg PO Q6H PRN PRN Reason: Pain, Mild (Pain Scale 1-3) Sodium Chloride (0.9 % Sodium Chloride Flush 3 Ml Syringe) [facility]per [facility] list[facility] Risperidone 0.5 mg p.o. daily Risperidone 1 mg p.o. bedtime Citalopram 20 mg p.o. daily Aspirin 81 mg p.o. daily Vitamin D3 25 mcg p.o. daily Loratadine 10 mg p.o. daily Colace 10 mg p.o. b.i.d. Milk of magnesia as needed constipation Guaifenesin 10 mL q.i.d. as needed for cough Tylenol 650 mg p.o. as needed for pain or fever Diazepam 10 mg as needed anxiety prior dental procedures Clindamycin gel 1% as needed Bisacodyl suppository 10 mg per rectum as needed MiraLax 17 g daily Famotidine 20 mg p.o. twice daily Symmetric on 10 mg p.o. twice daily Lactic 1 tablet p.o. twice daily Home Medications ?Medication ?Instructions ?Recorded ?Confirmed ?Last Taken ?Type citalopram 10 mg tablet 20 mg PO DAILY 08/06/23 08/06/23 Unknown History Physical Exam Vital Signs and Narrative: Vital Signs: Last Vital Signs Temp 96.6 F L 08/06/23 00:24 Pulse 67 08/06/23 01:15 Resp 14 08/06/23 00:24 BP 97/65 08/06/23 01:13 Pulse Ox 96 08/06/23 00:24 O2 Del Method Room Air 08/06/23 00:24 BMI result Body Mass Index 21.1 Constitutional - Awake and Alert, No apparent distress. Nonverbal. HEENT - Pupils equally round. Normal sclerae. Moist oral mucosa. Heart - S1S2, RRR, No edema Lungs - Normal lung expansion, Normal respiratory effort, No respiratory distress, CTA bilaterally Abdomen - NT / ND; +BS; No rebound or guarding Extremities - no calf tenderness bilaterally, no swelling Skin - Warm/Dry Neurological - Alert. Nonverbal (baseline). No focal weakness grossly noted. Psychological - Depressed affect Results Labs 08/06/23 00:18 08/06/23 00:18 Labs: Laboratory Results - last 24 hr 08/05/23 08/06/23 08/06/23 00:21 00:18 02:40 MCV 94.2 MCH 31.5 MCHC 33.5 RDW 11.9 Plt Count 232 MPV 9.5 Immature Gran % (Auto) 0.3 Neut % (Auto) 64.9 Lymph % (Auto) 18.2 L [place] % (Auto) 9.6 Eos % (Auto) 6.5 H Baso % (Auto) 0.5 Lymph # (Auto) 1.7 [place] # (Auto) 0.9 Eos # (Auto) 0.6 H Baso # (Auto) 0.1 Abs Immat Gran (auto) 0.03 Absolute Neuts (auto) 6.2 Absolute Nucleated RBC 0.000 Nucleated RBC % (auto) 0.0 Anion Gap 10 L Estim Creat Clear Calc 89.2 Estimated GFR > 60 Random Glucose 95 Calcium 9.3 Total Bilirubin 0.4 Direct Bilirubin 0.2 AST 19 ALT 19 Alkaline Phosphatase 48 Troponin I High Sens < 2.7 B-Natriuretic Peptide 23 Total Protein 6.6 Albumin 3.7 Lipase 46 TSH 2.04 Urine Color Yellow Urine Appearance Clear Urine pH 6.5 Ur Specific [place] <= 1.005 Urine Protein Negative Urine Glucose (UA) Negative Urine Ketones Negative Urine Blood Moderate (2+) H Urine Nitrite Negative Ur Leukocyte Esterase Negative Urine RBC 0-2 Urine WBC 0-5 Ur Squamous Epith Cells 0-2 Urine Bacteria None Seen Hyaline Casts 0-2 Urine Opiates Screen Not Detected Ur Buprenorphine Scrn Not Detected Ur Oxycodone Screen Not Detected Urine Methadone Screen Not Detected Urine Fentanyl Screen Not Detected Ur Barbiturates Screen Not Detected Ur Phencyclidine Scrn Not Detected Ur Amphetamines Screen Not Detected U Benzodiazepines Scrn Not Detected Urine Cocaine Screen Not Detected U Marijuana (THC) Screen Not Detected Influenza Type A (PCR) NEGATIVE Influenza Type B (PCR) NEGATIVE RSV RNA Qual (PCR) NEGATIVE SARS-CoV-2 RNA (RT-PCR) NEGATIVE Imaging Radiologist's Impressions: Impressions Chest X-Ray 08/05/23 23:52 IMPRESSION: Unremarkable examination. Assessment and Plan (1) Near syncope: Status: Acute (2) Hypotension: Qualifiers: Hypotension type: unspecified hypotension type Qualified Code(s): I95.9 - Hypotension, unspecified Status: Acute Plan Baljeet Melo is a 52 years old man with PMH significant for autism disorder, cerebral palsy, MR, tachycardia, mild systolic dysfunction and mitral valve prolapse presents with: Near syncope. Likely secondary to event of transitory hypotension and bradycardia associated with seizure-like activity. Telemetry. Keeping observation. Continue to monitor orthostatic vital signs qshift. Check echocardiogram. Check total CK. Head CT scan without contrast (unable to obtain as the patient is unable to stay still). Check TTE an EEG. Continue aspirin. Cardiology and Neurology consult for further recommendations. Hypotension, resolved. Etiology unclear. No SIRS criteria. No evidence orthostasis or dehydration. Check blood cultures. Check lactic acid. Continue to monitor blood pressure. Bradycardia, resolved. Etiology unclear. Check TTE. Telemetry. Anxiety. Continue citalopram and risperidone. Vitamin-D deficiency. Continue vitamin-D supplementation. History of constipation. Continue home meds. Code status: Full DVT prophylaxis: SCDs Quality Stroke Does the patient have a stroke diagnosis?: No VTE Prior VTE?: No VTE Risk Level:: Medical - moderate - high VTE Device Contraindication: Treatment Not Indicated VTE Drug Contraindication: Treatment Not Indicated
--- NOTE | 2023-08-06 05:30 | PC.NURSE ---
During system downtime pt found to be sinus geovanny at 39bpm, BP 92/55 MAP 63, RR12, O2 sat 97%. Pt asymptomatic at this time and resting at the bedside in no apparent distress. [place] test sent to Dr. Puente. At this time no fluids to be administered per Dr. Puente as this is pts baseline.
--- NOTE | 2023-08-06 07:00 | CA_ITS ---
Transthoracic Echocardiogram Patient (Last, First, Middle): Baljeet Melo Christopher Gender: Male Date of : 1970 Age: 52 Procedure Date: 08/06/2023 Procedure Type: Transthoracic Echocardiogram Location: ER Height: 154.94 cm Weight: 50.35 kg BSA: 1.47 m2 Heart Rate: bpm BP: 100 / 65 mmHg Trolley Cleaner: CROW Referring MD: Cheryl Nguyen MD Symptoms: Hx of MVP. Had event of bradycardia. Study Quality: Fair ECG Rhythm: Sinus Conclusions: - The left ventricular systolic function is normal. The calculated ejection fraction is 63% by biplane method. - No obvious valvular pathology seen on this study. Findings Left Ventricle Normal left ventricular cavity size. There is normal left ventricular wall thickness. The left ventricular systolic function is normal. The calculated ejection fraction is 63% by biplane method. There is no evidence of regional wall motion abnormalities. Diastolic function is normal for age. Right Ventricle Mildly increased right ventricular cavity size. There is normal right ventricular systolic function. Atria The left atrium is normal in size. The right atrium is mildly dilated. Aortic Valve There is a normal trileaflet aortic valve. There is no aortic valve stenosis. There is no aortic valve regurgitation. Mitral Valve The mitral valve appears normal. There is trace mitral valve regurgitation. There is no mitral valve stenosis. Pulmonic Valve The pulmonic valve is likely normal. Tricuspid Valve Normal tricuspid valve structure. There is trace tricuspid valve regurgitation. There is no evidence of pulmonary hypertension. Great Vessels The asc aorta is normal in size. Venous The inferior vena cava is mildly dilated and collapses greater than 50% with inspiration. Pericardium/Pleural There is no evidence of pericardial effusion. Prior Study Comparison No prior study available for comparison. Recommendations, Care & Conclusions No obvious valvular pathology seen on this study. Measurements 2D Linear Measurements IVSd: 0.59 0.6-0.9/0.6-1.0 cm LVIDd: 4.77 3.9-5.3/4.2-5.9 cm LVIDd Index: 3.24 2.4-3.2/2.2-3.1 cm/m2 LVIDs: 3.09 2.0-3.6 cm LVPWd: 1.02 0.7-1.1 cm LA Diam: 2.90 2.7-3.8/3.0-4.0 cm LAIDs Index: 1.97 1.5-2.3 cm/m2 LV Mass: 157.59 67-162/88-224 g LV Mass Index: 107.20 43-95/49-115 g/m2 LVOT Diam: 1.90 3.0+(-)1.3 cm 2D Systolic Function EF 4C: 61.30 >55% EF 2C: 62.80 >55% EF BiP: 63.10 >55% Mitral Valve MV Pk E: 0.56 MV PK A: 0.49 MV Decel Time: 308.00 E/A: 1.10 E'Lateral: 12.30 E'Medial: 11.20 E/E' Med: 5.00 E/E' Lat: 4.60 PHT: 90.00 MVA PHT: 2.44 Decel [place]: 1.83 Aortic Valve AoV Pk Richard: 1.03 AoV Mn Richard: 0.72 AoV VTI: 0.23 AoV Pk Grad: 4.00 Aov Mn Grad: 2.00 ARIANA Cont.VTI: 2.06 LVOT LVOT Pk Richard: 0.77 LVOT Mn Richard: 0.53 LVOT VTI: 0.17 LVOT Pk Grad: 2.00 LVOT Mn Grad: 1.00 LVOT Diam: 1.90 LVOT Area: 2.84 Diastolic Function MV Pk E: 0.56 MV Pk A: 0.49 E/A: 1.10 E'Medial: 11.20 E/E' Med: 5.00 E' Laterial: 12.30 E/E' Lat: 4.60 Right Ventricle TAPSE (mm): 24.20 TVS' Richard: 16.80 Tricuspid Valve TR Pk Richard: 1.72 TR Pk Grad: 12.00 RA Press: 8.00 RVSP: 20.00 Great Vessels Aorta Sinus of Valsalva: 3.27 2.0-3.5 cm Ao Asc: 2.90 2.1-3.4 cm Updated in Other Vendor System with Status of Final Milad Casper MD electronically signed on 08/06/2023 12:50:07 PM with status of Final
--- NOTE | 2023-08-06 07:22 | PHA.MEDREC ---
Pharmacy Consult ? Medication Reconciliation Pharmacy has completed the medication reconciliation. Used list from department of developmental services
--- NOTE | 2023-08-06 08:05 | PC.NURSE ---
this RN resumed care of pt at this time. pt has a hx of autism and is nonverbal. pt's senior living tutoring assistant, Giovanna, is bedside at this time. tutoring assistant states that pt uses physical touch and guide your hand to communicate. grunting means that the pt is in pain, and quacking like a duck means that he is happy. pt currently resting comfortably/sitting upright in no apparent distress at this time while eating breakfast. pt is a 1:1 assist to feed. pt in high fowlers position to promote patent airway. nsr on the fabric and accessories estimator - HR between 60-65bpm. pt remains slightly hypotensive but BP seems to be trending upward. no sob/wob noted. respirations even and unlabored. pt waiting for bed assignment at this time. plan of care ongoing. call rosa placed within reach.
[2023-08-06] MEDS: Escitalopram Oxalate 10 MG TABLET PO (08:42)
[2023-08-06] MEDS: risperiDONE 0.5 MG TABLET PO (08:42)
--- NOTE | 2023-08-06 08:44 | PC.NURSE ---
phlebotomy called and told this RN that an order for blood cultures was ordered stat for the pt at 0200 this morning. when looking in chart - cultures were not obtained. unknown reason. FREDI Quevedo notified/aware. ginny Knapp called phlebotomy so labs can be obtained d/t pt's status as being admitted. medication administered whole w/ applesauce. pt having echo completed at this time. pt's long-term POOL NURSE and RN bedside for support. plan of care ongoing. call rosa placed within reach.
--- NOTE | 2023-08-06 09:02 | MHC.CM.PN ---
CM met with Patient and his Detention Editor Managing Newspaper and addressed IMM; CM will also call Guardians (Parents/Rafaela & Baljeet) and address IMM with them (original left with Patient, who is non-verbal, and the Detention Editor Managing Newspaper and a copy will be placed on the chart).Patient required no DME FOREIGN COLLECTION CLERK and returning to his home/Detention is the goal. CM has initiated and will follow for dc planning. PCP is Dr. Jason Mason.
--- NOTE | 2023-08-06 09:12 | MHC.CM.PN ---
CRRECTION!! LION (NOT IMM) HAS BEEN ADDRESSED.
--- NOTE | 2023-08-06 09:30 | P.CONCA_ITS ---
History of Present Illness History of Present Illness Date of Service: 08/06/23 Chief complaint: Hypotension Narrative: This is a cardiology consultation regarding question of near syncope. Patient with many comorbidities including autism disorder, cerebral palsy, mental retardation and stated history of mild systolic dysfunction/mitral valve prolapse brought to the ER after he was noted to be shaky. Patient himself not able to give information. Per documentation, it seems that he normally has low blood pressure with a systolic baseline around 90 mm Hg but last night he was found to have blood pressure of 81/54 mm Hg with a heart rate of 51/Min. Apparently he was shaking and fell back in bed. In the ER, blood pressure was in the 90s which is apparently his baseline. Subsequently, he was hospitalized for further care. No further information obtainable. Review of Systems 2 Review of Systems: Unable to obtain due to patient's mental status PMFSH Past Medical History Medical History Nonverbal Weight disorder Gingivitis Eczema Dysphagia Constipation MR (mitral regurgitation) Mitral valve prolapse Vitamin D deficiency Tachycardia Acne Impulse control disorder Anxiety Cerebral palsy Autism History of pica Family History Pertinent family history: Unable to obtain due to patient's mental status Social History Social History Unable to assess alcohol history related to: Unable to respond Alcohol intake: never Patient Tobacco Use Status: Never used Tobacco Smoked in Last 30 Days: No Use of substances other than those prescribed or required for medical reasons: No Advance Directives: No Advance Directives Information Provided: Yes Nutrition Risks: No Nutritional Risk service: No Meds Allergies Allergy/AdvReac Type Severity Reaction Status Date / Time Benzodiazepines Allergy Unknown UNKNOWN Verified 08/05/23 23:03 [BENZODIAZEPINES] benztropine [BENZTROPINE] Allergy Unknown UNKNOWN Verified 08/05/23 23:03 lorazepam [From ATIVAN] Allergy Unknown UNKNOWN Verified 08/05/23 23:03 tretinoin [From RETIN-A] Allergy Unknown UNKNOWN Verified 08/05/23 23:03 Active Medications: Current Medications Acetaminophen (Acetaminophen 325 Mg Tablet) 650 mg PO Q6H PRN PRN Reason: Pain, Mild (Pain Scale 1-3) Escitalopram Oxalate (Escitalopram Oxalate 10 Mg Tablet) 10 mg PO DAILY ALANNA Last Admin: 08/06/23 08:42 Dose: 10 mg Risperidone (Risperidone 0.5 Mg Tablet) 0.5 mg PO DAILY [facility] Last Admin: 08/06/23 08:42 Dose: 0.5 mg Risperidone (Risperidone 1 Mg Tablet) 1 mg PO BEDTIME [facility] Sodium Chloride (0.9 % Sodium Chloride Flush 3 Ml Syringe) 3 ml IVFLUSH QSHIFT [facility] Last Admin: 08/06/23 07:20 Dose: Not Given Home Medications ?Medication ?Instructions ?Recorded ?Confirmed ?Last Taken ?Type acetaminophen 325 mg tablet 650 mg PO Q6H PRN pain or temp 08/06/23 08/06/23 Unknown History aspirin 81 mg tablet,delayed 81 mg PO DAILY 08/06/23 08/06/23 Unknown History release bacitracin zinc 500 unit/gram 1 appl topical DAILY PRN penile 08/06/23 08/06/23 Unknown History topical ointment lesions or abrasions betamethasone dipropionate 0.05 % 1 appl topical BID PRN rash on 08/06/23 08/06/23 Unknown History topical cream back or abdomen carbamide peroxide 6.5 % ear drops 3 drp otic (ears) MOWEFR 08/06/23 08/06/23 Unknown History (Debrox) cholecalciferol (vitamin D3) 25 25 mcg PO DAILY 08/06/23 08/06/23 Unknown History mcg (1,000 unit) tablet citalopram 10 mg tablet 20 mg PO DAILY 08/06/23 08/06/23 Unknown History clindamycin-benzoyl peroxide 1 %-5 1 ea topical BID APPLY TO FACE 08/06/23 08/06/23 Unknown History % topical kit docusate sodium 100 mg capsule 100 mg PO BID 08/06/23 08/06/23 Unknown History fluoride (sodium) 1.1 % dental 1 appl dental BID 08/06/23 08/06/23 Unknown History cream (SF 5000 Plus) lactase 3,000 unit tablet (Lactaid) 3,000 unit PO BID PRN dairy 08/06/23 08/06/23 Unknown History intolerance loratadine 10 mg tablet 10 mg PO DAILY 08/06/23 08/06/23 Unknown History magnesium hydroxide 400 mg/5 mL 2,400 mg PO DAILY PRN Constipation 08/06/23 08/06/23 Unknown History oral suspension (Milk of Magnesia) multivitamin 1 tab PO DAILY 08/06/23 08/06/23 Unknown History risperidone 0.5 mg tablet 0.5 mg PO DAILY 08/06/23 08/06/23 Unknown History risperidone 1 mg tablet 1 mg PO BEDTIME 08/06/23 08/06/23 Unknown History Physical Exam 2 Vital Signs: Vital Signs: Last Vital Signs Temp 98.7 F 08/06/23 06:17 Pulse 54 08/06/23 06:17 Resp 16 08/06/23 06:17 BP 100/65 08/06/23 06:17 Pulse Ox 98 08/06/23 06:17 O2 Del Method Room Air 08/06/23 06:17 BMI result Body Mass Index 21.1 Const: General: comfortable and no acute distress O rientation/consciousness: No patient oriented x3 HEENT: Other: Unremarkable Head: Yes normal to inspection Neck: Neck: Yes normal visual inspection Chest: Chest palpation & inspection: normal inspection of the chest Resp: Auscultation: clear to auscultation bilaterally Cardio: Palpation: normal PMI Heart sounds: S1 normal heart sound present, S2 normal heart sound present, no gallops, no murmurs and no rubs GI: Palpation (GI): Soft to palpation Back/Spine/Pelvis: Other: unremarkable Skin: General skin exam: no rashes or lesions noted Neuro: General: No patient oriented x3 Extrem: General: Yes normal to inspection Psych: Mental Status: mental status grossly abnormal Objective Labs and Meds 08/06/23 00:18 08/06/23 00:18 Lab results: Laboratory Results - last 24 hr 08/05/23 08/06/23 08/06/23 00:21 00:18 02:40 WBC 9.6 RBC 4.28 L Hgb 13.5 L Hct 40.3 L MCV 94.2 MCH 31.5 MCHC 33.5 RDW 11.9 Plt Count 232 MPV 9.5 Immature Gran % (Auto) 0.3 Neut % (Auto) 64.9 Lymph % (Auto) 18.2 L [place] % (Auto) 9.6 Eos % (Auto) 6.5 H Baso % (Auto) 0.5 Lymph # (Auto) 1.7 [place] # (Auto) 0.9 Eos # (Auto) 0.6 H Baso # (Auto) 0.1 Abs Immat Gran (auto) 0.03 Absolute Neuts (auto) 6.2 Absolute Nucleated RBC 0.000 Nucleated RBC % (auto) 0.0 Sodium 139 Potassium 4.1 Chloride 104 Carbon Dioxide 29 Anion Gap 10 L BUN 23 H Creatinine 0.71 Estim Creat Clear Calc 89.2 Estimated GFR > 60 Random Glucose 95 Calcium 9.3 Total Bilirubin 0.4 Direct Bilirubin 0.2 AST 19 ALT 19 Alkaline Phosphatase 48 Total Creatine Kinase 139 Troponin I High Sens < 2.7 B-Natriuretic Peptide 23 Total Protein 6.6 Albumin 3.7 Lipase 46 TSH 2.04 Urine Color Yellow Urine Appearance Clear Urine pH 6.5 Ur Specific [place] <= 1.005 Urine Protein Negative Urine Glucose (UA) Negative Urine Ketones Negative Urine Blood Moderate (2+) H Urine Nitrite Negative Ur Leukocyte Esterase Negative Urine RBC 0-2 Urine WBC 0-5 Ur Squamous Epith Cells 0-2 Urine Bacteria None Seen Hyaline Casts 0-2 Urine Opiates Screen Not Detected Ur Buprenorphine Scrn Not Detected Ur Oxycodone Screen Not Detected Urine Methadone Screen Not Detected Urine Fentanyl Screen Not Detected Ur Barbiturates Screen Not Detected Ur Phencyclidine Scrn Not Detected Ur Amphetamines Screen Not Detected U Benzodiazepines Scrn Not Detected Urine Cocaine Screen Not Detected U Marijuana (THC) Screen Not Detected Influenza Type A (PCR) NEGATIVE Influenza Type B (PCR) NEGATIVE RSV RNA Qual (PCR) NEGATIVE SARS-CoV-2 RNA (RT-PCR) NEGATIVE ECG Interpretation: EKG with sinus bradycardia at 52/Min; low-voltage QRS; no significant ST-T changes; normal VT and corrected QT. Imaging Radiologist's impression: Impressions Chest X-Ray 08/05/23 23:52 IMPRESSION: Unremarkable examination. Assessment and Plan (1) Near syncope: Status: Acute (2) Hypotension: Qualifiers: Hypotension type: unspecified hypotension type Qualified Code(s): I95.9 - Hypotension, unspecified Status: Acute Plan High sensitivity troponin within normal limits. Cardiac BNP is also within normal limits. Overall, doubt any clear cardiac etiology for his symptoms. Will review the echocardiogram when completed. Discussed with [facility] from [facility]. Procedures Date of Service Date of Service: 08/06/23
--- NOTE | 2023-08-06 10:24 | MHC.CM.PN ---
CM spoke with /Guardian/Rafaela @ [phone] and addressed LION with her.
--- NOTE | 2023-08-06 12:13 | PM.NEUROCN ---
History of Present Illness Data of Consult Service Date: 08/06/23 Primary Care Provider: Jason Mason MD [facility] Reason for consult: Possible seizure 52 years old man with underlying diagnosis of autism usually not communicated any according to the roller turner, living in a senior living and usually walking around all day or pacing. Sometime, when he got up quickly, he was noted to be shaky and yesterday he had 1 of those episodes. His blood pressure was on the lower side. There was no previous history of seizure disorder. He was unable to provide any history Review of Systems Review of Systems: Could not be done with him [facility] Past Medical History Medical History Nonverbal Weight disorder Gingivitis Eczema Dysphagia Constipation MR (mitral regurgitation) Mitral valve prolapse Vitamin D deficiency Tachycardia Acne Impulse control disorder Anxiety Cerebral palsy Autism History of pica Social History Social History Unable to assess alcohol history related to: Unable to respond Alcohol intake: never Patient Tobacco Use Status: Never used Tobacco Smoked in Last 30 Days: No Use of substances other than those prescribed or required for medical reasons: No Advance Directives: No Advance Directives Information Provided: Yes Nutrition Risks: No Nutritional Risk service: No Meds Allergies Allergy/AdvReac Type Severity Reaction Status Date / Time Benzodiazepines Allergy Unknown UNKNOWN Verified 08/05/23 23:03 [BENZODIAZEPINES] benztropine [BENZTROPINE] Allergy Unknown UNKNOWN Verified 08/05/23 23:03 lorazepam [From ATIVAN] Allergy Unknown UNKNOWN Verified 08/05/23 23:03 tretinoin [From RETIN-A] Allergy Unknown UNKNOWN Verified 08/05/23 23:03 Active Medications: Current Medications Acetaminophen (Acetaminophen 325 Mg Tablet) 650 mg PO Q6H PRN PRN Reason: Pain, Mild (Pain Scale 1-3) Escitalopram Oxalate (Escitalopram Oxalate 10 Mg Tablet) 10 mg PO DAILY [facility] Last Admin: 08/06/23 08:42 Dose: 10 mg Risperidone (Risperidone 0.5 Mg Tablet) 0.5 mg PO DAILY [facility] Last Admin: 08/06/23 08:42 Dose: 0.5 mg Risperidone (Risperidone 1 Mg Tablet) 1 mg PO BEDTIME [facility] Sodium Chloride (0.9 % Sodium Chloride Flush 3 Ml Syringe) 3 ml IVFLUSH QSHIFT [facility] Last Admin: 08/06/23 07:20 Dose: Not Given Home Medications ?Medication ?Instructions ?Recorded ?Confirmed ?Last Taken ?Type acetaminophen 325 mg tablet 650 mg PO Q6H PRN pain or temp 08/06/23 08/06/23 Unknown History aspirin 81 mg tablet,delayed 81 mg PO DAILY 08/06/23 08/06/23 Unknown History release bacitracin zinc 500 unit/gram 1 appl topical DAILY PRN penile 08/06/23 08/06/23 Unknown History topical ointment lesions or abrasions betamethasone dipropionate 0.05 % 1 appl topical BID PRN rash on 08/06/23 08/06/23 Unknown History topical cream back or abdomen carbamide peroxide 6.5 % ear drops 3 drp otic (ears) MOWEFR 08/06/23 08/06/23 Unknown History (Debrox) cholecalciferol (vitamin D3) 25 25 mcg PO DAILY 08/06/23 08/06/23 Unknown History mcg (1,000 unit) tablet citalopram 10 mg tablet 20 mg PO DAILY 08/06/23 08/06/23 Unknown History clindamycin-benzoyl peroxide 1 %-5 1 ea topical BID APPLY TO FACE 08/06/23 08/06/23 Unknown History % topical kit docusate sodium 100 mg capsule 100 mg PO BID 08/06/23 08/06/23 Unknown History fluoride (sodium) 1.1 % dental 1 appl dental BID 08/06/23 08/06/23 Unknown History cream (SF 5000 Plus) lactase 3,000 unit tablet (Lactaid) 3,000 unit PO BID PRN dairy 08/06/23 08/06/23 Unknown History intolerance loratadine 10 mg tablet 10 mg PO DAILY 08/06/23 08/06/23 Unknown History magnesium hydroxide 400 mg/5 mL 2,400 mg PO DAILY PRN Constipation 08/06/23 08/06/23 Unknown History oral suspension (Milk of Magnesia) multivitamin 1 tab PO DAILY 08/06/23 08/06/23 Unknown History risperidone 0.5 mg tablet 0.5 mg PO DAILY 08/06/23 08/06/23 Unknown History risperidone 1 mg tablet 1 mg PO BEDTIME 08/06/23 08/06/23 Unknown History Physical Exam Vital Signs: Vital Signs: Last Vital Signs Temp 97.8 F 08/06/23 11:12 Pulse 75 08/06/23 11:54 Resp 16 08/06/23 11:12 BP 104/59 L 08/06/23 11:54 Pulse Ox 98 08/06/23 11:12 O2 Del Method Room Air 08/06/23 11:12 BMI result Body Mass Index 21.1 Neuro: Other: He is alert and awake looking around made eye contact but not consistently. There was strong grasp reflex. There was no obvious focal arm or leg weakness. Face was symmetrical. Visual erickson seem to be okay. Results Labs 08/06/23 00:18 08/06/23 00:18 Labs: Short CBC 08/06/23 Range/Units 00:18 WBC 9.6 (4.8-10.8) X10*3/uL Hgb 13.5 L (14.0-18.0) g/dl Hct 40.3 L (42.0-52.0) % Plt Count 232 (160-400) X10*3/uL BMP 08/06/23 00:18 Sodium 139 Potassium 4.1 Chloride 104 Carbon Dioxide 29 BUN 23 H Creatinine 0.71 Calcium 9.3 Cardiac Enzymes 08/06/23 Range/Units 00:18 Total Creatine Kinase 139 (38-174) U/L Liver Function 08/06/23 Range/Units 00:18 Total Bilirubin 0.4 (0.0-1.0) mg/dL Direct Bilirubin 0.2 (0.0-0.5) mg/dL AST 19 (5-37) U/L ALT 19 (0-40) U/L Alkaline Phosphatase 48 (39-117) U/L Albumin 3.7 (3.5-5.0) g/dL Urine 08/06/23 Range/Units 02:40 Urine Color Yellow Urine Appearance Clear Urine pH 6.5 (5.0-9.0) Ur Specific [place] <= 1.005 (1.005-1.025) Urine Protein Negative (Neg-Trace) mg/dL Urine Glucose (UA) Negative (Negative) mg/dL Noncontrast head CT did not reveal any obvious abnormality. Assessment and Plan (1) Convulsive syncope: Status: Acute 52 years old man with underlying diagnosis of autism not communicating was noted to have mild convulsive type of symptoms while his blood pressure was low. This could be convulsive syncope type of symptoms. Because of his inability to communicate or not speak, I recommend obtaining an EEG to rule out any epileptic etiology for his communication problem and maybe also seizure disorder. Procedures Date of Service Date of Service: 08/06/23
--- NOTE | 2023-08-06 12:46 | PC.NURSE ---
pt ambulated around the ED - 1:1 assist needed d/t slightly unsteady gait which is pt's baseline. no signs of dizziness/lightheaded noted during ambulation trial. pt now resting comfortably in bed in no apparent distress. respirations remain even and unlabored. LEGAL DOCUMENT SPECIALIST from nursing home remains present. pt continues to wait for bed assignment at this time. call rosa placed within reach.
--- NOTE | 2023-08-06 13:24 | P.DS_ITS ---
DS: Providers Provider Date of Service: 08/06/23 Date of admission: 08/06/23 02:20 Date of discharge: 08/06/23 Primary care physician: Jason Mason MD Consults: 08/06/23 02:29 Consult to Neurology Routine Consulting Provider: [facility] Reason for consultation: seizure-like activity Has provider been notified: No 08/06/23 03:51 Consult to Cardiology Routine Consulting Provider: [facility] Reason for consultation: Bradycardia Has provider been notified: Yes Attending physician on discharge: Thaddeus Wade Discharging clinician: Enma Quevedo DS: Diagnosis Discharge Diagnosis (1) Convulsive syncope: Status: Acute DS: Summary Hospital Course Hospital Course: From H&P on the day of admission Baljeet Melo is a 52 years old man with past medical history significant for autism disorder, cerebral palsy, MR, tachycardia, mild systolic dysfunction and mitral valve prolapse was brought to the emergency department after he was noted to be shaky . HPI was provided by patient's fpc caregiver as the patient is nonverbal. Caregiver stated that the patient usually has low normal blood pressure (baseline SBP is around 90) but last night around 21:00 the patient became shaky and fell back onto bed. He was found to have a blood pressure of 81/54, heart rate 51 and temperature of 98.2 degrees. Patient has not been vomiting or having diarrhea. He has not been noted to be in pain and has been eating and drinking fluids as usual. Patient does not use diuretics or hypertensive medications. He gets Valium as needed but caregiver unsure if patient had a recent dose of this. Per EMS blood pressure was 100/60. In the emergency department, he was initially found with a blood pressure of 94/58 (which is at baseline), temp 96.6 degrees and heart rate of 54 bpm. O2 sats are normal on room air. Blood workup including CBC, CMP, BNP, troponin, lipase and TSH are unremarkable. Urinalysis showed no evidence of urinary tract infection. Urine drug screen is negative. Viral testing for influenza, COVID- 19 and RSV is negative. CXR is negative. ECG showed sinus bradycardia, heart rate 52 beats per minute and low voltage without ischemic changes. ED tx: NS 1 L bolus. Near syncope: possibly due to transient low blood pressure. No documented seizure-like activity. Echocardiogram obtained and revealed preserved ejection fraction with no valvular abnormalities. Cardiac enzymes and BNP negative. Seen by Cardiology who did not feel that there was cardiac cause of his episode. Unable to obtain brain CT without sedating patient as he is unable to remain still. He was able to ambulate at his baseline in the emergency department. Blood pressure has remained stable. White count on admission was 12.9, this resolved without intervention. He has remained afebrile. Urinalysis and chest x-ray showed no evidence of infection. Blood cultures were unable to be safely obtained due to limited cooperation from patient who does not like to be touched. Blood pressure has remained at the patient's baseline in high 90s low 100 systolic. Renal function normal. Tox screen negative. Influenza a, B, RSV and COVID negative. Patient was seen in consultation by Neurology, because of his inability to communicate they recommended EEG to rule out any epileptic etiology. An EEG was ordered however the patient was unable to cooperate and therefore was unable to be obtained. Patient has remained at his baseline since admission. Discussed with his mother and guardian Rafaela, will defer any further workup including sedating him to obtain brain CT as patient would likely be better served to return home to his fpc in his normal setting where he is able to ambulate freely. She is in agreement with plan and agrees that it would be best for him to return to a familiar setting. He can follow-up with PCP as an outpatient. Time Attestation Discharge Coordination Time (in mins): 36 Quality: Safe Use of Opioids Does Pt have an Active Cancer Diagnosis on the Problem List?: No Quality: Stroke Does the patient have a stroke diagnosis?: No Physical Exam Vital Signs: Vital Signs: Last Vital Signs Temp 97.8 F 08/06/23 11:12 Pulse 75 08/06/23 11:54 Resp 16 08/06/23 11:12 BP 104/59 L 08/06/23 11:54 Pulse Ox 98 08/06/23 11:12 O2 Del Method Room Air 08/06/23 11:12 BMI result Body Mass Index 21.1 Const: Other: nonverbal (baseline) sitting in bed comfortably, looking around General: comfortable, no acute distress, alert and awake Resp: Effort & Inspection: normal respiratory effort, able to speak in complete sentences, no respiratory distress and no use of accessory muscles Cardio: Rate: regular rate GI: Inspection: No distended Palpation (GI): Soft to palpation and nontender Neuro: Other: face symmetrical General: moves all extremities Extrem: General: Yes no pedal edema DS: Data Data Completed and Pending Labs on day of discharge: Laboratory Results - last 24 hr 08/05/23 08/06/23 08/06/23 00:21 00:18 02:40 WBC 9.6 RBC 4.28 L Hgb 13.5 L Hct 40.3 L MCV 94.2 MCH 31.5 MCHC 33.5 RDW 11.9 Plt Count 232 MPV 9.5 Immature Gran % (Auto) 0.3 Neut % (Auto) 64.9 Lymph % (Auto) 18.2 L [place] % (Auto) 9.6 Eos % (Auto) 6.5 H Baso % (Auto) 0.5 Lymph # (Auto) 1.7 [place] # (Auto) 0.9 Eos # (Auto) 0.6 H Baso # (Auto) 0.1 Abs Immat Gran (auto) 0.03 Absolute Neuts (auto) 6.2 Absolute Nucleated RBC 0.000 Nucleated RBC % (auto) 0.0 Sodium 139 Potassium 4.1 Chloride 104 Carbon Dioxide 29 Anion Gap 10 L BUN 23 H Creatinine 0.71 Estim Creat Clear Calc 89.2 Estimated GFR > 60 Random Glucose 95 Calcium 9.3 Total Bilirubin 0.4 Direct Bilirubin 0.2 AST 19 ALT 19 Alkaline Phosphatase 48 Total Creatine Kinase 139 Troponin I High Sens < 2.7 B-Natriuretic Peptide 23 Total Protein 6.6 Albumin 3.7 Lipase 46 TSH 2.04 Urine Color Yellow Urine Appearance Clear Urine pH 6.5 Ur Specific [place] <= 1.005 Urine Protein Negative Urine Glucose (UA) Negative Urine Ketones Negative Urine Blood Moderate (2+) H Urine Nitrite Negative Ur Leukocyte Esterase Negative Urine RBC 0-2 Urine WBC 0-5 Ur Squamous Epith Cells 0-2 Urine Bacteria None Seen Hyaline Casts 0-2 Urine Opiates Screen Not Detected Ur Buprenorphine Scrn Not Detected Ur Oxycodone Screen Not Detected Urine Methadone Screen Not Detected Urine Fentanyl Screen Not Detected Ur Barbiturates Screen Not Detected Ur Phencyclidine Scrn Not Detected Ur Amphetamines Screen Not Detected U Benzodiazepines Scrn Not Detected Urine Cocaine Screen Not Detected U Marijuana (THC) Screen Not Detected Influenza Type A (PCR) NEGATIVE Influenza Type B (PCR) NEGATIVE RSV RNA Qual (PCR) NEGATIVE SARS-CoV-2 RNA (RT-PCR) NEGATIVE Discharge Plan Discharge Anticipated Discharge Date/Time: 08/06/23 13:02 Patient Disposition: Home, Self-Care Discharge Diagnosis: Near syncope low bp Referrals: Jason Mason MD [Primary Care Provider] - 1 Week Discharge Medications: Continued famotidine 20 mg tablet 20 mg PO DAILY Qty: 5 0RF citalopram 10 mg tablet 20 mg PO DAILY docusate sodium 100 mg capsule 100 mg PO BID loratadine 10 mg tablet 10 mg PO DAILY risperidone 0.5 mg tablet 0.5 mg PO DAILY cholecalciferol (vitamin D3) 25 mcg (1,000 unit) tablet 25 mcg PO DAILY risperidone 1 mg tablet 1 mg PO BEDTIME multivitamin Tablet 1 tab PO DAILY aspirin 81 mg Tablet,Delayed Release (Dr/Ec) 81 mg PO DAILY Debrox 6.5 % Drops 3 drp OTIC (EARS) MOWEFR clindamycin-benzoyl peroxide 1-5 % Kit 1 ea TOPICAL BID Patient Comments: APPLY TO FACE BID fluoride (sodium) [SF 5000 Plus] 1.1 % Cream 1 appl DENTAL BID acetaminophen 325 mg tablet 650 mg PO Q6H PRN (Reason: pain or temp) bacitracin zinc 500 unit/gram Ointment 1 appl TOPICAL DAILY PRN (Reason: penile lesions or abrasions) magnesium hydroxide [Milk of Magnesia] 400 mg/5 mL Suspension 2,400 mg PO DAILY PRN (Reason: Constipation) lactase [Lactaid] 3,000 unit Tablet 3,000 unit PO BID PRN (Reason: dairy intolerance) Rx Instructions: administer with meals and/or snacks betamethasone dipropionate 0.05 % Cream 1 appl TOPICAL BID PRN (Reason: rash on back or abdomen) Discharge Orders: Discharge Order (Routine); Ordered 08/06/23 Ordered By: Enma Quevedo Activity on Discharge: As tolerated Stand Alone Forms: Patient Portal Discharge page Print Language: Serbian Care Plan Goals: see below Health Concerns: Near-syncope Low blood pressure Plan of Treatment: Blood pressure has remained stable at baseline levels Return to ED with any new or worsening symptoms encourage oral intake Assessment: See discharge summary
--- NOTE | 2023-08-06 13:45 | PC.NURSE ---
unable to complete EEG as pt is unable to participate/stay still. FREDI Quevedo aware. plan of care ongoing. call rosa placed within reach.
--- NOTE | 2023-08-06 14:05 | MHC.CM.PN ---
Patient has been medically cleared for dc to home ([facility])todayself care. CM spoke with Information Technology Assistant at the [facility] who requested that Patient return by ambulance. Patient will return to the custodial today at 4:30 PM, via [facility].CM will inform Guardians of the dc plan.
--- NOTE | 2023-08-06 14:12 | MHC.CM.PN ---
CM left a detailed message for Patient's Parents/Guardians at [phone], informing them of the dc plan.
== END 2023-08-06 14:48 | disposition home or self-care (01) ==
LOC: HO.ED 08-06 01:33 → HO.EDOVER 08-06 02:31
PROVIDERS: Admitting Provider Internal Medicine; Emergency Provider Emergency Medicine; PCP Internal Medicine; Visit Provider Physician Assistant Medical
DX: R55 Syncope and collapse (principal); I95.9 Hypotension, unspecified; R00.1 Bradycardia, unspecified; G80.9 Cerebral palsy, unspecified; I34.0 Nonrheumatic mitral (valve) insufficiency; I34.1 Nonrheumatic mitral (valve) prolapse; F41.9 Anxiety disorder, unspecified; E55.9 Vitamin D deficiency, unspecified; K59.00 Constipation, unspecified; F80.9 Developmental disorder of speech and language, unspecified; Z03.818 Encounter for observation for suspected exposure to other biological agents ruled out
CPT/HCPCS: 0241U; 71045; 80048; 80076; 80307; 81001; 82550; 83690; 83880; 84443; 84484; 85025; 93005; 93306; 96360; 96361; 99222; 99285

== ENCOUNTER → 2023-08-05 23:28 | Outpatient (BNV) | payer OTHER, SELFPAY | PROVIDERS: Admitting Provider Internal Medicine; Emergency Provider Emergency Medicine; PCP Internal Medicine; Visit Provider Internal Medicine | DX: R55 Syncope and collapse (principal) | CPT/HCPCS: 93010 ==

== ENCOUNTER → 2023-08-06 02:20 | Outpatient (BNV) | payer OTHER, SELFPAY | PROVIDERS: Admitting Provider Internal Medicine; Emergency Provider Emergency Medicine; PCP Internal Medicine; Visit Provider Psychiatry & Neurology Neurology | DX: R55 Syncope and collapse (principal) | CPT/HCPCS: 99222 ==

== ENCOUNTER → 2023-08-06 02:20 | Outpatient (BNV) | payer OTHER, SELFPAY | PROVIDERS: Admitting Provider Internal Medicine; Emergency Provider Emergency Medicine; PCP Internal Medicine; Visit Provider Internal Medicine | DX: R55 Syncope and collapse (principal); I95.9 Hypotension, unspecified; I34.1 Nonrheumatic mitral (valve) prolapse; R00.1 Bradycardia, unspecified | CPT/HCPCS: 93306; 99223 ==

== ENCOUNTER → 2023-08-06 02:20 | Outpatient (BNV) | payer OTHER, SELFPAY | PROVIDERS: Admitting Provider Internal Medicine; Emergency Provider Emergency Medicine; PCP Internal Medicine; Visit Provider Internal Medicine | DX: R55 Syncope and collapse (principal) | CPT/HCPCS: 99235; 99499 ==

== ENCOUNTER 2023-08-29 21:41 | Emergency (ER) | payer OTHER, SELFPAY ==
[2023-08-29 21:59] VITALS: BP 113/69; PULSE 63; RESP 16; TEMP 36.3; O2SAT 99; BMI 19.1
--- NOTE | 2023-08-29 23:03 | ED.FALL ---
HPI - Fall General Chief Complaint: Fall Stated Complaint: FELL AT JAIL Time Seen by Provider: 08/29/23 22:14 Source: family (Caregiver) and old records reviewed Mode of arrival: ambulatory Limitations: no limitations History of Present Illness HPI Narrative: 52-year-old male with pertinent history of autism, cerebral palsy, MR, mitral valve prolapse. Patient normally able to ambulate with unsteady gait, was witnessed by another resident to have a mechanical fall while he is getting off the couch landing on his buttock, no witnessed head injury or LOC, was described by his caregiver that the patient is able to walk on his own without assistance with his normal gait. Related Data Home Medications ?Medication ?Instructions ?Recorded ?Confirmed acetaminophen 325 mg tablet 650 mg PO Q6H PRN pain or temp 08/06/23 08/06/23 aspirin 81 mg tablet,delayed 81 mg PO DAILY 08/06/23 08/06/23 release bacitracin zinc 500 unit/gram 1 appl topical DAILY PRN penile 08/06/23 08/06/23 topical ointment lesions or abrasions betamethasone dipropionate 0.05 % 1 appl topical BID PRN rash on 08/06/23 08/06/23 topical cream back or abdomen carbamide peroxide 6.5 % ear drops 3 drp otic (ears) MOWEFR 08/06/23 08/06/23 (Debrox) cholecalciferol (vitamin D3) 25 25 mcg PO DAILY 08/06/23 08/06/23 mcg (1,000 unit) tablet citalopram 10 mg tablet 20 mg PO DAILY 08/06/23 08/06/23 clindamycin-benzoyl peroxide 1 %-5 1 ea topical BID APPLY TO FACE 08/06/23 08/06/23 % topical kit docusate sodium 100 mg capsule 100 mg PO BID 08/06/23 08/06/23 fluoride (sodium) 1.1 % dental 1 appl dental BID 08/06/23 08/06/23 cream (SF 5000 Plus) lactase 3,000 unit tablet (Lactaid) 3,000 unit PO BID PRN dairy 08/06/23 08/06/23 intolerance loratadine 10 mg tablet 10 mg PO DAILY 08/06/23 08/06/23 magnesium hydroxide 400 mg/5 mL 2,400 mg PO DAILY PRN Constipation 08/06/23 08/06/23 oral suspension (Milk of Magnesia) multivitamin 1 tab PO DAILY 08/06/23 08/06/23 risperidone 0.5 mg tablet 0.5 mg PO DAILY 08/06/23 08/06/23 risperidone 1 mg tablet 1 mg PO BEDTIME 08/06/23 08/06/23 Previous Rx's ?Medication ?Instructions ?Recorded famotidine 20 mg tablet 20 mg PO DAILY #5 tabs 02/26/23 Allergies Allergy/AdvReac Type Severity Reaction Status Date / Time Benzodiazepines Allergy Unknown UNKNOWN Verified 08/29/23 22:02 [BENZODIAZEPINES] benztropine [BENZTROPINE] Allergy Unknown UNKNOWN Verified 08/29/23 22:02 lorazepam [From ATIVAN] Allergy Unknown UNKNOWN Verified 08/29/23 22:02 tretinoin [From RETIN-A] Allergy Unknown UNKNOWN Verified 08/29/23 22:02 Review of Systems Review of Systems: All other systems are reviewed and are negative Constitutional: Reports as per HPI and Reports no additional constitutional complaints Eyes: Reports as per HPI and Reports no additional eye complaints Reports system reviewed and no additional complaints, except as documented Cardiovascular: Reports as per HPI and Reports no additional cardiovascular complaints Respiratory: Reports as per HPI and Reports no additional respiratory complaints Gastrointestinal: Reports as per HPI and Reports no additional gastrointestinal complaints Genitourinary: Reports no additional female genitourinary complaints Musculoskeletal: Reports no additional musculoskeletal complaints Skin/Breast: Reports system reviewed and no additional complaints, except as docu Psychiatric: Reports no additional psychiatric complaints Endocrine: Reports no additional endocrine complaints Hematologic/Lymphatic: Reports no additional hematologic/lymphatic complaints Allergic/Immunologic: Reports no additional allergic/immunologic complaints Reports system reviewed and no additional complaints, except as documented and Reports Abnormal speech present [facility] Past Medical History Medical History Nonverbal Weight disorder Gingivitis Eczema Dysphagia Constipation MR (mitral regurgitation) Mitral valve prolapse Vitamin D deficiency Tachycardia Acne Impulse control disorder Anxiety Cerebral palsy Autism History of pica Social History Social History Unable to assess alcohol history related to: Unable to respond Alcohol intake: never Patient Tobacco Use Status: Never used Tobacco Smoked in Last 30 Days: No Use of substances other than those prescribed or required for medical reasons: No Advance Directives: No Advance Directives Information Provided: No Do you have a plan to hurt others: No Plan service: No Physical Exam Vital Signs: Vital Signs: Last Vital Signs Temp 97.3 F 08/29/23 21:59 Pulse 63 08/29/23 21:59 Resp 16 08/29/23 21:59 BP 113/69 08/29/23 21:59 Pulse Ox 99 08/29/23 21:59 O2 Del Method Room Air 08/29/23 21:59 BMI result Body Mass Index 19.1 Vital signs have been reviewed and appear to be correct. Blood pressure elevated. Heart rate normal. Respiratory rate normal. Temperature normal. Oxygen saturation normal. Appearance: Nonverbal, No acute distress. Head: Normal external exam. Normocephalic. Atraumatic. No Erazo signs noted. No raccoon eyes noted Eyes: PERRLA. EOMI. Conjunctiva and sclera normal. Eyelids normal. ENT: TM's Normal. Pharynx normal. Uvula midline. Moist mucous membranes. No trismus noted. No drooling noted. No muffled voice noted. Neck: Normal inspection. Neck supple. FROM. No adenopathy. Thyroid Normal. No meningeal signs. No neck mass noted. CVS: Normal heart rate and rhythm. Heart sound normal. No murmurs noted. Pulses normal throughout. Respiratory: No respiratory distress. Painless inspiration. Breath sounds normal. No wheezes/rales/rhonchi noted. Chest nontender. No accessory muscle usage noted or decreased air movement noted. Abdomen: Soft and nontender. Bowel sounds normal in all 4 quadrants. No distention noted. No organomegaly noted. No visible injury noted. Back: No CVA tenderness. Full range of motion noted. Skin: Skin warm and dry. Normal skin color. Normal skin turgor. No rashes/lesions/lacerations noted. Extremities: No lower extremity edema. Extremities exhibit normal range of motion. Extremities nontender. Neuro: Cranial nerve exam: II-XII are grossly intact No motor deficit. No sensory deficit. Reflexes normal. Course Reevaluation(s) Reevaluation #1: S/p mechanical fall with no obvious injury, patient was able to ambulate in the emergency department as per caregiver patient at his baseline ambulating and at his normal gait. Time: 00:14 Medical Decision Making Differential Diagnosis Differential Diagnoses: The differential diagnosis associated with the presentation includes (Mechanical fall, head injury, extremity injury, chest injury, abdominal injury.) Admission/Observation Consideration of admission/observation: Escalation of care including admission/observation considered Discharge Plan Discharge Clinical Impression: Accident due to mechanical fall without injury Patient Disposition: Home, Self-Care Instructions: Fall Prevention for Older Adults (ED) Additional Instructions: Patient can resume all his medication as prescribed by PCP. Prescriptions: No Action famotidine 20 mg tablet 20 mg PO DAILY Qty: 5 0RF citalopram 10 mg tablet 20 mg PO DAILY docusate sodium 100 mg capsule 100 mg PO BID loratadine 10 mg tablet 10 mg PO DAILY risperidone 0.5 mg tablet 0.5 mg PO DAILY cholecalciferol (vitamin D3) 25 mcg (1,000 unit) tablet 25 mcg PO DAILY risperidone 1 mg tablet 1 mg PO BEDTIME multivitamin Tablet 1 tab PO DAILY aspirin 81 mg Tablet,Delayed Release (Dr/Ec) 81 mg PO DAILY Debrox 6.5 % Drops 3 drp OTIC (EARS) MOWEFR clindamycin-benzoyl peroxide 1-5 % Kit 1 ea TOPICAL BID Patient Comments: APPLY TO FACE BID fluoride (sodium) [SF 5000 Plus] 1.1 % Cream 1 appl DENTAL BID acetaminophen 325 mg tablet 650 mg PO Q6H PRN (Reason: pain or temp) bacitracin zinc 500 unit/gram Ointment 1 appl TOPICAL DAILY PRN (Reason: penile lesions or abrasions) magnesium hydroxide [Milk of Magnesia] 400 mg/5 mL Suspension 2,400 mg PO DAILY PRN (Reason: Constipation) lactase [Lactaid] 3,000 unit Tablet 3,000 unit PO BID PRN (Reason: dairy intolerance) Rx Instructions: administer with meals and/or snacks betamethasone dipropionate 0.05 % Cream 1 appl TOPICAL BID PRN (Reason: rash on back or abdomen) Referrals: Jason Mason MD [Primary Care Provider] - Print Language: Estonian
--- NOTE | 2023-08-29 23:28 | PC.NURSE ---
Pt nonverbal, alert and in no acute distress. Pt requested and given HOB lowered and pilllow. Plan of care ongoing.
[2023-08-30 00:39] VITALS: BP 113/69; PULSE 63; RESP 16; TEMP 36.3; O2SAT 99
== END 2023-08-30 01:41 | disposition home or self-care (01) ==
PROVIDERS: Emergency Provider Emergency Medicine; PCP Internal Medicine
DX: Z91.81 History of falling (principal); G80.9 Cerebral palsy, unspecified; I34.1 Nonrheumatic mitral (valve) prolapse; F84.0 Autistic disorder
CPT/HCPCS: 99282; 99284

== ENCOUNTER 2023-09-15 07:18 | Emergency (ER) | payer OTHER, SELFPAY ==
[2023-09-15] VITALS (7 sets, daily range): BP systolic 123; BP diastolic 76–78; PULSE 82–88; RESP 16–20; TEMP 36.7; O2SAT 95–97; BMI 18.3
--- NOTE | ~2023-09-15 | XR_ITS ---
EXAMINATION: CHEST AND KUB CLINICAL INFORMATION: gasping this AM COMPARISON: Chest radiograph 08/05/2023, CT abdomen pelvis 04/28/2023 TECHNIQUE: Single view chest and single view abdomen both in the upright position. The exam is limited because patient's inability to cooperate. The apices of the lungs are not included in the pelvis is not included. FINDINGS: No significant abnormalities seen involving the heart, lungs, mediastinum or bony thorax. There is mild gaseous distention of bowel beneath the hemidiaphragm but no definite evidence of bowel obstruction. No free air. XR/XR KUB IMPRESSION: 1. No acute intrathoracic disease. 2. Mild gaseous distention of bowel beneath the hemidiaphragm without definite evidence of bowel obstruction.
--- NOTE | ~2023-09-15 | XR_ITS ---
EXAMINATION: CHEST AND KUB CLINICAL INFORMATION: gasping this AM COMPARISON: Chest radiograph 08/05/2023, CT abdomen pelvis 04/28/2023 TECHNIQUE: Single view chest and single view abdomen both in the upright position. The exam is limited because patient's inability to cooperate. The apices of the lungs are not included in the pelvis is not included. FINDINGS: No significant abnormalities seen involving the heart, lungs, mediastinum or bony thorax. There is mild gaseous distention of bowel beneath the hemidiaphragm but no definite evidence of bowel obstruction. No free air. XR/XR chest 1V IMPRESSION: 1. No acute intrathoracic disease. 2. Mild gaseous distention of bowel beneath the hemidiaphragm without definite evidence of bowel obstruction.
--- NOTE | 2023-09-15 07:31 | ED.GENADULT ---
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 No sounds now no other complaints just want him checked out. 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) Radiation: non-radiation Severity: mild Relieving factors: none Exacerbating factors: none Associated symptoms: denies other symptoms Treatments prior to arrival: none Related Data Home Medications ?Medication ?Instructions ?Recorded ?Confirmed acetaminophen 325 mg tablet 650 mg PO Q6H PRN pain or temp 08/06/23 08/06/23 aspirin 81 mg tablet,delayed 81 mg PO DAILY 08/06/23 08/06/23 release bacitracin zinc 500 unit/gram 1 appl topical DAILY PRN penile 08/06/23 08/06/23 topical ointment lesions or abrasions betamethasone dipropionate 0.05 % 1 appl topical BID PRN rash on 08/06/23 08/06/23 topical cream back or abdomen carbamide peroxide 6.5 % ear drops 3 drp otic (ears) MOWEFR 08/06/23 08/06/23 (Debrox) cholecalciferol (vitamin D3) 25 25 mcg PO DAILY 08/06/23 08/06/23 mcg (1,000 unit) tablet citalopram 10 mg tablet 20 mg PO DAILY 08/06/23 08/06/23 clindamycin-benzoyl peroxide 1 %-5 1 ea topical BID APPLY TO FACE 08/06/23 08/06/23 % topical kit docusate sodium 100 mg capsule 100 mg PO BID 08/06/23 08/06/23 fluoride (sodium) 1.1 % dental 1 appl dental BID 08/06/23 08/06/23 cream (SF 5000 Plus) lactase 3,000 unit tablet (Lactaid) 3,000 unit PO BID PRN dairy 08/06/23 08/06/23 intolerance loratadine 10 mg tablet 10 mg PO DAILY 08/06/23 08/06/23 magnesium hydroxide 400 mg/5 mL 2,400 mg PO DAILY PRN Constipation 08/06/23 08/06/23 oral suspension (Milk of Magnesia) multivitamin 1 tab PO DAILY 08/06/23 08/06/23 risperidone 0.5 mg tablet 0.5 mg PO DAILY 08/06/23 08/06/23 risperidone 1 mg tablet 1 mg PO BEDTIME 08/06/23 08/06/23 Previous Rx's ?Medication ?Instructions ?Recorded famotidine 20 mg tablet 20 mg PO DAILY #5 tabs 02/26/23 Allergies Allergy/AdvReac Type Severity Reaction Status Date / Time Benzodiazepines Allergy Unknown UNKNOWN Verified 09/15/23 07:30 [BENZODIAZEPINES] benztropine [BENZTROPINE] Allergy Unknown UNKNOWN Verified 09/15/23 07:30 lorazepam [From ATIVAN] Allergy Unknown UNKNOWN Verified 09/15/23 07:30 tretinoin [From RETIN-A] Allergy Unknown UNKNOWN Verified 09/15/23 07:30 Review of Systems Review of Systems: ROS unable to be obtained due to patient being nonverbal and having development delay [facility] Past Medical History Attestation statement: The following information was validated with the patient. Source: old records reviewed Medical History Nonverbal Weight disorder Gingivitis Eczema Dysphagia Constipation MR (mitral regurgitation) Mitral valve prolapse Vitamin D deficiency Tachycardia Acne Impulse control disorder Anxiety Cerebral palsy Autism History of pica Social History Social History Unable to assess alcohol history related to: Unable to respond Alcohol intake: never Patient Tobacco Use Status: Never used Tobacco Smoked in Last 30 Days: No Use of substances other than those prescribed or required for medical reasons: No Advance Directives: Yes Advance Directives Information Provided: Yes Advance Directives on File: No service: No Physical Exam ED Vital Signs: Vital Signs - 24 hr 09/15/23 07:28 09/15/23 07:36 09/15/23 09:02 Pulse Rate 82 Respiratory Rate 18 16 20 Blood Pressure 123/78 BMI result Body Mass Index 18.3 Appearance: Alert. calm no sounds heard. No acute distress. Eyes: Pupils equal, round and reactive to light. ENT: Pharynx normal. Neck: Normal inspection. Neck supple. CVS: Normal heart rate and rhythm. Pulses normal. Respiratory: No respiratory distress. Breath sounds normal. no wheezes or stridor heard Abdomen: distended slightly no grimace or sound with palpation, bs are slightly hyperactive Skin: Skin warm and dry. Normal skin color. Normal skin turgor. Extremities: No lower extremity edema. Neuro: at baseline. No motor deficit. No sensory deficit. Medical Decision Making Medical Decision Making MDM Narrative: 52 yo male nonverbal autism, GERD, [facility] here with c/o possible episode where he was not eating and making noises that could be attributed to pain - he was not hypoxic with EMS he is not hypoxic here he has clear lung sounds. At this time will obtain CXR and KUB for constipation and reassess. Differential Diagnosis Differential Diagnoses: The differential diagnosis associated with the presentation includes constipation, pneumonia Admission/Observation Consideration of admission/observation: Escalation of care including admission/observation considered seems at baseline no wheezing here 95% on RA would not allow temperature but does not feel hot to touch is at baseline observated x 2 hours no recurrence Independent Interpretation I performed an independent interpretation of an: Plain X-Ray (normal ) Radiology Impression Discussion of test interpretation with radiology: I have reviewed the radiologist's reading. Independent Historian Clinical information obtained from an independent historian. History obtained from or confirmed by: EMS and Other External Record Review External record reviewed: Inpatient record Discharge Plan Discharge Clinical Impression: Normal exam Patient Disposition: Home, Self-Care Instructions: Normal Exam (ED) Additional Instructions: chest xray normal xray of abdomen normal return for any worsening symptoms or concerns saturations 95% on RA Prescriptions: No Action famotidine 20 mg tablet 20 mg PO DAILY Qty: 5 0RF citalopram 10 mg tablet 20 mg PO DAILY docusate sodium 100 mg capsule 100 mg PO BID loratadine 10 mg tablet 10 mg PO DAILY risperidone 0.5 mg tablet 0.5 mg PO DAILY cholecalciferol (vitamin D3) 25 mcg (1,000 unit) tablet 25 mcg PO DAILY risperidone 1 mg tablet 1 mg PO BEDTIME multivitamin Tablet 1 tab PO DAILY aspirin 81 mg Tablet,Delayed Release (Dr/Ec) 81 mg PO DAILY Debrox 6.5 % Drops 3 drp OTIC (EARS) MOWEFR clindamycin-benzoyl peroxide 1-5 % Kit 1 ea TOPICAL BID Patient Comments: APPLY TO FACE BID fluoride (sodium) [SF 5000 Plus] 1.1 % Cream 1 appl DENTAL BID acetaminophen 325 mg tablet 650 mg PO Q6H PRN (Reason: pain or temp) bacitracin zinc 500 unit/gram Ointment 1 appl TOPICAL DAILY PRN (Reason: penile lesions or abrasions) magnesium hydroxide [Milk of Magnesia] 400 mg/5 mL Suspension 2,400 mg PO DAILY PRN (Reason: Constipation) lactase [Lactaid] 3,000 unit Tablet 3,000 unit PO BID PRN (Reason: dairy intolerance) Rx Instructions: administer with meals and/or snacks betamethasone dipropionate 0.05 % Cream 1 appl TOPICAL BID PRN (Reason: rash on back or abdomen) Print Language: Arabic
--- NOTE | 2023-09-15 09:03 | PC.NURSE ---
Patient not allowing for pulse oximeter to be placed on finger or for BP puff to be placed
== END 2023-09-15 10:12 | disposition home or self-care (01) ==
PROVIDERS: Emergency Provider Emergency Medicine; PCP Internal Medicine
DX: R06.89 Other abnormalities of breathing (principal); G80.9 Cerebral palsy, unspecified; R10.9 Unspecified abdominal pain
CPT/HCPCS: 71045; 74018; 99283; 99284

== ENCOUNTER 2023-09-23 13:25 | Inpatient (IN) | payer OTHER, SELFPAY ==
--- NOTE | ~2023-09-23 | CT_ITS ---
EXAMINATION: CT ANGIOGRAM HEAD CT ANGIOGRAM NECK CLINICAL INFORMATION: Reason for Exam difficulty ambulating COMPARISON: CT head 04/28/2023 TECHNIQUE: Test bolus sequences followed by intravenous administration 85 mL of Omnipaque 350. Helical imaging was performed in the axial plane from the aortic arch to the skull vertex. Delayed postcontrast imaging of the head was also performed. The data was processed at the vascular ultrasound technologist's workstation for generation of MIP sequences. Angled MIPs and volume rendered reformatted images were also generated at an offline 3D workstation. Stenoses are assessed in accordance with Peter et al. Quantification of Carotid Stenosis on CT Angiography. AJR 2006. 27(1):13-19. [address] CT examination was performed using dose optimization techniques as appropriate, variously including the following: *Automated exposure control *Adjustment of mA and/or kV according to patient size (this includes techniques or standardized protocols for targeted exams where dose is matched to indication/reason for exam; i.e. extremities or head) *Use of iterative reconstruction technique DLP: 2145 mGy-cm FINDINGS: CT HEAD: The ventricles and sulci are normal in size and configuration without significant volume loss or hydrocephalus. There is no abnormal attenuation within the brain parenchyma. No territorial loss of barnhart-white differentiation. No acute intracranial hemorrhage or extra-axial fluid collection. No mass lesion, significant mass effect, or herniation pattern. No pathologic intra-axial enhancement or regional oligemia. The orbits are grossly normal. Trace mucosal thickening along the floor of the left maxillary sinus. No mastoid effusion. Osseous structures are intact. CTA HEAD: No hemodynamically significant stenosis or occlusion in the anterior or posterior circulation. Extradural origin of the left PICA. The intradural right vertebral artery is diminutive following take off of the right PICA with attenuated contrast filling presumably on the basis of small vessel caliber below resolution of this examination. Prominent posterior communicating arteries are seen with asymmetrically hypoplastic right P1 segment. No aneurysms and no high flow vascular malformations. Timing of the contrast bolus allows assessment of the major dural venous sinuses, which all opacify normally CTA NECK: Classic 3 vessel branching pattern of the aortic arch. Nondiagnostic assessment of the innominate artery and proximal left common carotid artery due to beam hardening artifact from adjacent venous contrast bolus. The common carotid arteries are widely patent. The carotid bifurcations and bilateral internal carotid arteries are normal. The left vertebral artery is dominant. The right vertebral artery origin is patent. Nondiagnostic assessment of the left vertebral artery origin and V1 segment related to beam hardening artifact from perivertebral venous opacification. Otherwise, both vertebral arteries are widely patent throughout their extracranial cervical course. CT NECK: 5 mm air-filled internal laryngocele on the left. Partially imaged patulous esophagus. CT/CT angio head neck IMPRESSION: 1. No acute intracranial findings. 2. No acute arterial occlusion or hemodynamically significant stenosis within the head or neck.
[2023-09-23 13:35] VITALS: BP 98/44; PULSE 69; RESP 18; TEMP 36.6; BMI 19.3
--- NOTE | 2023-09-23 13:35 | ED.GENADULT ---
HPI - General Adult General Chief complaint: General Medical Stated complaint: unsteady gait Time Seen by Provider: 09/23/23 16:36 Source: patient Mode of arrival: ambulatory Limitations: other History of Present Illness ED Provider: Dr. Michael Mccormick HPI narrative: 53-year-old male possible history of autism normally ambulatory [facility] past history also of anxiety acid reflux constipation who presents to the emergency department after noticing a strong smell in that his gait has changed he has had no falls they deny any fevers chills cough nausea vomiting or diarrhea patient is nonverbal baseline Related Data Home Medications ?Medication ?Instructions ?Recorded ?Confirmed acetaminophen 325 mg tablet 650 mg PO Q6H PRN pain or temp 08/06/23 08/06/23 aspirin 81 mg tablet,delayed 81 mg PO DAILY 08/06/23 08/06/23 release bacitracin zinc 500 unit/gram 1 appl topical DAILY PRN penile 08/06/23 08/06/23 topical ointment lesions or abrasions betamethasone dipropionate 0.05 % 1 appl topical BID PRN rash on 08/06/23 08/06/23 topical cream back or abdomen carbamide peroxide 6.5 % ear drops 3 drp otic (ears) MOWEFR 08/06/23 08/06/23 (Debrox) cholecalciferol (vitamin D3) 25 25 mcg PO DAILY 08/06/23 08/06/23 mcg (1,000 unit) tablet citalopram 10 mg tablet 20 mg PO DAILY 08/06/23 08/06/23 clindamycin-benzoyl peroxide 1 %-5 1 ea topical BID APPLY TO FACE 08/06/23 08/06/23 % topical kit docusate sodium 100 mg capsule 100 mg PO BID 08/06/23 08/06/23 fluoride (sodium) 1.1 % dental 1 appl dental BID 08/06/23 08/06/23 cream (SF 5000 Plus) lactase 3,000 unit tablet (Lactaid) 3,000 unit PO BID PRN dairy 08/06/23 08/06/23 intolerance loratadine 10 mg tablet 10 mg PO DAILY 08/06/23 08/06/23 magnesium hydroxide 400 mg/5 mL 2,400 mg PO DAILY PRN Constipation 08/06/23 08/06/23 oral suspension (Milk of Magnesia) multivitamin 1 tab PO DAILY 08/06/23 08/06/23 risperidone 0.5 mg tablet 0.5 mg PO DAILY 08/06/23 08/06/23 risperidone 1 mg tablet 1 mg PO BEDTIME 08/06/23 08/06/23 Previous Rx's ?Medication ?Instructions ?Recorded famotidine 20 mg tablet 20 mg PO DAILY #5 tabs 02/26/23 Allergies Allergy/AdvReac Type Severity Reaction Status Date / Time Benzodiazepines Allergy Unknown UNKNOWN Verified 09/23/23 13:37 [BENZODIAZEPINES] benztropine [BENZTROPINE] Allergy Unknown UNKNOWN Verified 09/23/23 13:37 lorazepam [From ATIVAN] Allergy Unknown UNKNOWN Verified 09/23/23 13:37 tretinoin [From RETIN-A] Allergy Unknown UNKNOWN Verified 09/23/23 13:37 Review of Systems Review of Systems: Patient is nonverbal at baseline [facility] Past Medical History Medical History Nonverbal Weight disorder Gingivitis Eczema Dysphagia Constipation MR (mitral regurgitation) Mitral valve prolapse Vitamin D deficiency Tachycardia Acne Impulse control disorder Anxiety Cerebral palsy Autism History of pica Social History Social History Unable to assess alcohol history related to: Unable to respond Alcohol intake: never Patient Tobacco Use Status: Never used Tobacco Advance Directives: No Advance Directives Information Provided: No service: No Physical Exam ED Vital Signs: Vital Signs - 24 hr 09/23/23 13:35 09/23/23 16:19 09/23/23 17:30 Temperature 97.8 F 97.2 F 97.0 F Pulse Rate 69 57 55 Respiratory Rate 18 16 16 Blood Pressure 98/44 L 105/59 L 104/62 Pulse Oximetry 100 95 Oxygen Delivery Method Room Air Room Air 09/23/23 19:52 Temperature 97.8 F Pulse Rate 71 Respiratory Rate 16 Blood Pressure 103/64 Pulse Oximetry 97 Oxygen Delivery Method Room Air BMI result Body Mass Index 19.3 General: Well-appearing well-nourished in no signs of distress HEENT: Normocephalic atraumatic Neck: No signs of JVD, no masses no tenderness or lymphadenopathy Cardiovascular: Regular rate and rhythm Respiratory: Clear to auscultation bilaterally Abdomen: Soft nontender no masses rectal exam performed guiac negative vice president quality confirmed. Extremities: Normal pedal pulses no signs of edema Skin: Dry warm no rashes Back: No tenderness full ROM Course Course Course Narrative: This is a rapid medical exam performed by Milton Lowery NP: Additional HPI, ROS, PE not included below will be deferred to primary provider. Patient is a 53-year-old male with hx of nonverbal autism, GERD [facility] with staff who report unsteady gait, strong smelling urine since yesterday. Staff state he is normally ambulatory at baseline. Kept him home from day program today due to sxs. Plan: UA, labs Reevaluation(s) Reevaluation #1: 1903 workup including urine is all unremarkable patient is not ambulated with a steady gait I will give the patient over for a CT to rule out stroke patient is now within the window was not in the window on arrival want to see if there was another reason but now that he can not walk and there is no other reason I will give the CT scan. Reevaluation #2: 2000 no IV central service tech tells me they want the patient medicated for the CT but did not pass off to nursing staff. Will get IV and medicate. Reevaluation #3: Medicate with versed x2 patient was sedated for CT. he is on citalopram and risperidone but no medications to explain symptoms over at CT now. Will sign out pending CTA read and admission. Additional Reevaluation(s): [address] Ibarra from the hospitalist service about the patient my thought was patient has change of gait not found on CT or labs and will need Neuro evaluation and MRI he states outpatient Neuro and PT should suffice as they are limiting inpatient MRI's. With his non verbal status would need sedation and benefit from admission. He wanted Neurology consulted call made to Dr. Prieto. Dr. Prieto was consulted and felt a MRI was not warranted and that CT was sufficient. Medications Administered Discontinued Medications Generic Name Dose Route Start Last Admin Trade Name Freq PRN Reason Stop Dose Admin Haloperidol Lactate 5 mg 09/23/23 20:13 09/23/23 20:18 Haloperidol Lactate 5 Mg/Ml Vial IVPUSH 09/23/23 20:14 5 mg STAT STA Administration Iohexol 100 ml 09/23/23 20:45 09/23/23 20:46 Iohexol 350 Mg/Ml 100 Ml Infus..Btl IV 09/23/23 20:46 75 ml ONCE ONE Administration Midazolam HCl 2 mg 09/23/23 20:02 09/23/23 20:18 Midazolam Hcl/Pf 2 Mg/2 Ml Vial IVPUSH 09/23/23 20:03 2 mg ONCE ONE Administration Medical Decision Making Medical Decision Making [facility] Narrative: I will check labs give patient for urinalysis and reassess Differential Diagnosis Differential Diagnoses: The differential diagnosis associated with the presentation includes Patient does have cerebral palsy baseline I do not think this is exacerbation do not think patient has acute stroke or need for neuroimaging. Patient is able to move around seems to be interacting normally and moving all extremities but is just more liquid concern for UTI electrolyte abnormality sepsis Admission/Observation Consideration of admission/observation: Escalation of care including admission/observation considered Consult Healthcare Provider Management of the patient was discussed with: Hospitalist Lab Data [facility] Lab Attestation statement: I reviewed the patient's lab results. 09/23/23 14:10 09/23/23 14:10 Labs: Lab Results 09/23/23 09/23/23 Range/Units 14:10 17:30 WBC 6.2 (4.8-10.8) X10*3/uL RBC 4.32 L (4.60-5.80) X10*6/uL Hgb 14.0 (14.0-18.0) g/dl Hct 41.3 L (42.0-52.0) % MCV 95.6 (80.0-98.0) fL MCH 32.4 (27.0-33.0) pg MCHC 33.9 (31.0-36.0) g/dl RDW 12.1 (11.0-16.0) % Plt Count 246 (160-400) X10*3/uL MPV 9.6 (9.4-12.4) fL Immature Gran % (Auto) 0.2 (0.0-0.4) % Neut % (Auto) 57.9 (45-73) % Lymph % (Auto) 26.8 (20-40) % [place] % (Auto) 10.4 (2-11) % Eos % (Auto) 4.2 H (0-4) % Baso % (Auto) 0.5 (0-2) % Lymph # (Auto) 1.7 (1.2-4.9) X10*3/uL [place] # (Auto) 0.7 (0.1-1.2) X10*3/uL Eos # (Auto) 0.3 (0.0-0.4) X10*3/uL Baso # (Auto) 0.0 (0.0-0.2) X10*3/uL Abs Immat Gran (auto) 0.01 (0.00-0.03) X10*3/uL Absolute Neuts (auto) 3.6 (2.0-8.3) x10*3/uL Absolute Nucleated RBC 0.000 (0.0-0.012) X10*3/uL Nucleated RBC % (auto) 0.0 (0.0-0.2) /100WBC Sodium 140 (135-145) mmol/L Potassium 4.4 (3.3-5.1) mmol/L Chloride 105 (96-108) mmol/L Carbon Dioxide 26 (22-29) mmol/L Anion Gap 13 (12-20) BUN 25 H (9-16) mg/dL Creatinine 0.66 (0.5-1.4) mg/dL Estim Creat Clear Calc 84.1 Estimated GFR > 60 Random Glucose 92 (60-115) mg/dL Calcium 9.0 (8.4-10.2) mg/dL Total Bilirubin 0.3 (0.0-1.0) mg/dL AST 22 (5-37) U/L ALT 19 (0-40) U/L Alkaline Phosphatase 46 (39-117) U/L Total Protein 6.4 L (6.5-8.0) g/dL Albumin 3.8 (3.5-5.0) g/dL Urine Color Yellow Urine Appearance Clear Urine pH 7.0 (5.0-9.0) Ur Specific [place] 1.025 (1.005-1.025) Urine Protein Negative (Neg-Trace) mg/dL Urine Glucose (UA) Negative (Negative) mg/dL Urine Ketones Negative (Negative) mg/dL Urine Blood Negative (Negative) Urine Nitrite Negative (Negative) Ur Leukocyte Esterase Negative (Negative) Independent Interpretation I performed an independent interpretation of an: Plain X-Ray External Record Review External record reviewed: Inpatient record, Office record and Outpatient record Discharge Plan Discharge Clinical Impression: Altered gait Patient Disposition: Admitted As Inpatient Prescriptions: No Action famotidine 20 mg tablet 20 mg PO DAILY Qty: 5 0RF citalopram 10 mg tablet 20 mg PO DAILY docusate sodium 100 mg capsule 100 mg PO BID loratadine 10 mg tablet 10 mg PO DAILY risperidone 0.5 mg tablet 0.5 mg PO DAILY cholecalciferol (vitamin D3) 25 mcg (1,000 unit) tablet 25 mcg PO DAILY risperidone 1 mg tablet 1 mg PO BEDTIME multivitamin Tablet 1 tab PO DAILY aspirin 81 mg Tablet,Delayed Release (Dr/Ec) 81 mg PO DAILY Debrox 6.5 % Drops 3 drp OTIC (EARS) MOWEFR clindamycin-benzoyl peroxide 1-5 % Kit 1 ea TOPICAL BID Patient Comments: APPLY TO FACE BID fluoride (sodium) [SF 5000 Plus] 1.1 % Cream 1 appl DENTAL BID acetaminophen 325 mg tablet 650 mg PO Q6H PRN (Reason: pain or temp) bacitracin zinc 500 unit/gram Ointment 1 appl TOPICAL DAILY PRN (Reason: penile lesions or abrasions) magnesium hydroxide [Milk of Magnesia] 400 mg/5 mL Suspension 2,400 mg PO DAILY PRN (Reason: Constipation) lactase [Lactaid] 3,000 unit Tablet 3,000 unit PO BID PRN (Reason: dairy intolerance) Rx Instructions: administer with meals and/or snacks betamethasone dipropionate 0.05 % Cream 1 appl TOPICAL BID PRN (Reason: rash on back or abdomen) Print Language: [place]
[2023-09-23 14:21] LABS: MANUAL DIFF FLAG NO
[2023-09-23 14:26] LABS: Basophils Percent Auto 0.5 % (0-2); Eosinophils Absolute Auto 0.3 X10*3/uL (0.0-0.4); Eosinophils Percent Auto 4.2 % (0-4); Hematocrit 41.3 % (42.0-52.0); Imm Gran Abs Auto 0.01 X10*3/uL (0.00-0.03); Imm Gran Pct Auto 0.2 % (0.0-0.4); Lymphocytes Absolute Auto 1.7 X10*3/uL (1.2-4.9); Lymphocytes Percent Auto 26.8 % (20-40); Mean Corpuscular HGB Conc 33.9 g/dl (31.0-36.0); Mean Corpuscular Hemoglobin 32.4 pg (27.0-33.0); Mean Corpuscular Volume 95.6 fL (80.0-98.0); Mean Platelet Volume 9.6 fL (9.4-12.4); Monocytes Absolute Auto 0.7 X10*3/uL (0.1-1.2); Monocytes Percent Auto 10.4 % (2-11); Neutrophils Absolute Auto 3.6 x10*3/uL (2.0-8.3); Neutrophils Percent Auto 57.9 % (45-73); Platelet Count 246 X10*3/uL (160-400); Red Blood Count 4.32 X10*6/uL (4.60-5.80); Red Cell Distribution Width 12.1 % (11.0-16.0); White Blood Count 6.2 X10*3/uL (4.8-10.8)
[2023-09-23 14:40] LABS: Alanine Aminotransferase 19 U/L (0-40); Albumin Level 3.8 g/dL (3.5-5.0); Alkaline Phosphatase 46 U/L (39-117); Anion Gap 13 (12-20); Aspartate Amino Transferase 22 U/L (5-37); Bilirubin Total 0.3 mg/dL (0.0-1.0); Blood Urea Nitrogen 25 mg/dL (9-16); Carbon Dioxide 26 mmol/L (22-29); Chloride 105 mmol/L (96-108); Creatinine Clr Calc Pharmacy 84.1; Estimated Glomerular Filt Rate > 60; Glucose Random 92 mg/dL (60-115); Potassium 4.4 mmol/L (3.3-5.1); Sodium 140 mmol/L (135-145); Total Protein 6.4 g/dL (6.5-8.0)
[2023-09-23 16:19] VITALS: BP 105/59; PULSE 57; RESP 16; TEMP 36.2; O2SAT 100
--- NOTE | 2023-09-23 16:21 | MHC.EDTECH ---
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 AND CANT GIVE A URINE SAMPLE.
[2023-09-23 17:30] VITALS: BP 104/62; PULSE 55; RESP 16; TEMP 36.1; O2SAT 95
[2023-09-23 17:40] LABS: Appearance Urine Clear; Color Urine Yellow; Glucose Urine UA Negative (Negative); Leukocyte Esterase Urine Negative (Negative); Nitrite Urine Negative (Negative); Specific Gravity - Urine 1.025 (1.005-1.025); Urine Blood Negative (Negative); Urine Ketones Negative (Negative); Urine Protein Negative (Neg-Trace)
--- NOTE | 2023-09-23 17:40 | MHC.EDTECH ---
Patient was incontinent of urine care given and bedding change ,urine sample sent to lab .
[2023-09-23 19:52] VITALS: BP 103/64; PULSE 71; RESP 16; TEMP 36.6; O2SAT 97
[2023-09-23] MEDS: Midazolam HCl/PF 2 MG/2 ML VIAL IVPUSH ×2 (20:18→21:02)
[2023-09-23] MEDS: Haloperidol Lactate 5 MG/ML VIAL IVPUSH (20:18)
[2023-09-23] MEDS: iohexoL 350 MG/ML 100 ML INFUS..BTL IV (20:46)
[2023-09-23 21:29] VITALS: BP 98/60; PULSE 58; RESP 16; TEMP 36.1; O2SAT 100
--- NOTE | 2023-09-23 22:10 | PM.IMHP ---
History of Present Illness Date of Service: 09/23/23 Chief Complaint: Gait dysfunction This is a 53-year-old male with pertinent history of autism disorder, cerebral palsy, developmental delay, mild systolic dysfunction with mitral valve prolapse, mood disorder, gastroesophageal reflux disease who was brought to the emergency department for evaluation of gait dysfunction. Unable to obtain history from the patient. Patient only opens eyes in response to voice. Does not follow commands. Is nonverbal at baseline. As per the caregiver at bedside, patient has been unsteady on his feet for the last 3 days. No rhythmic jerking movement of extremities. Also has been having foul-smelling urine. Unable to obtain review of systems. In the emergency department, CT head and neck without any acute abnormalities. Review of Systems Review of Systems: Yes Unobtainable due to mental condition [facility] Medical History Nonverbal Weight disorder Gingivitis Eczema Dysphagia Constipation MR (mitral regurgitation) Mitral valve prolapse Vitamin D deficiency Tachycardia Acne Impulse control disorder Anxiety Cerebral palsy Autism History of pica Social History Unable to assess alcohol history related to: Unable to respond Alcohol intake: never Patient Tobacco Use Status: Never used Tobacco Advance Directives: No Advance Directives Information Provided: No service: No Meds Allergies Allergy/AdvReac Type Severity Reaction Status Date / Time Benzodiazepines Allergy Unknown UNKNOWN Verified 09/23/23 13:37 [BENZODIAZEPINES] benztropine [BENZTROPINE] Allergy Unknown UNKNOWN Verified 09/23/23 13:37 lorazepam [From ATIVAN] Allergy Unknown UNKNOWN Verified 09/23/23 13:37 tretinoin [From RETIN-A] Allergy Unknown UNKNOWN Verified 09/23/23 13:37 Home Medications ?Medication ?Instructions ?Recorded ?Confirmed ?Last Taken ?Type acetaminophen 325 mg tablet 650 mg PO Q6H PRN pain or temp 08/06/23 09/23/23 Unknown History aspirin 81 mg tablet,delayed 81 mg PO DAILY 08/06/23 09/23/23 Unknown History release bacitracin zinc 500 unit/gram 1 appl topical DAILY PRN penile 08/06/23 09/23/23 Unknown History topical ointment lesions or abrasions betamethasone dipropionate 0.05 % 1 appl topical BID PRN rash on 08/06/23 09/23/23 Unknown History topical cream back or abdomen carbamide peroxide 6.5 % ear drops 3 drp otic (ears) MOWEFR 08/06/23 09/23/23 Unknown History (Debrox) cholecalciferol (vitamin D3) 25 25 mcg PO DAILY 08/06/23 09/23/23 Unknown History mcg (1,000 unit) tablet citalopram 10 mg tablet 20 mg PO DAILY 08/06/23 09/23/23 Unknown History docusate sodium 100 mg capsule 100 mg PO BID 08/06/23 09/23/23 Unknown History fluoride (sodium) 1.1 % dental 1 appl dental BID 08/06/23 09/23/23 Unknown History cream (SF 5000 Plus) lactase 3,000 unit tablet (Lactaid) 3,000 unit PO BID PRN dairy 08/06/23 09/23/23 Unknown History intolerance loratadine 10 mg tablet 10 mg PO DAILY 08/06/23 09/23/23 Unknown History magnesium hydroxide 400 mg/5 mL 2,400 mg PO Q72H PRN Constipation, 08/06/23 09/23/23 Unknown History oral suspension (Milk of Magnesia) if no BM in 3 days multivitamin 1 tab PO DAILY 08/06/23 09/23/23 Unknown History risperidone 0.5 mg tablet 0.5 mg PO DAILY 08/06/23 09/23/23 Unknown History risperidone 1 mg tablet 1 mg PO BEDTIME 08/06/23 09/23/23 Unknown History benzoyl peroxide 5 % topical gel 1 appl topical BID 09/23/23 09/23/23 Unknown History bisacodyl 10 mg rectal suppository 10 mg [place] ONCE PRN constipation; if 09/23/23 09/23/23 Unknown History (OneLAX Bisacodyl) MOM doesnt work clindamycin phosphate 1 % topical 1 appl topical BID PRN Groin Cyst 09/23/23 09/23/23 Unknown History gel famotidine 20 mg tablet 20 mg PO BID 09/23/23 09/23/23 Unknown History guaifenesin 200 mg/5 mL oral liquid 400 mg PO QID PRN Cough 09/23/23 09/23/23 Unknown History mineral oil-isopropyl myristat 1 appl topical BID 09/23/23 09/23/23 Unknown History lotion polyethylene glycol 3350 17 17 g PO BEDTIME 09/23/23 09/23/23 Unknown History gram/dose oral powder simethicone 80 mg chewable tablet 80 mg PO BID 09/23/23 09/23/23 Unknown History Physical Exam Vital Signs and Narrative: Vital Signs: Last Vital Signs Temp 97.0 F 09/23/23 21:29 Pulse 58 09/23/23 21:29 Resp 16 09/23/23 21:29 BP 98/60 09/23/23 21:29 Pulse Ox 100 09/23/23 21:29 O2 Del Method Room Air 09/23/23 19:52 BMI result Body Mass Index 19.3 Middle-aged male lying in bed in no distress Neck supple, no JVD Bradycardic, S1-S2 heard Regular breath sounds bilaterally, no wheezing or crackles appreciated Abdomen soft nontender, no guarding, no rigidity Patient with eye opening to verbal stimulus, not following commands, nonverbal at baseline Psych: Normal mood No pedal edema Results Labs 09/23/23 14:10 09/23/23 14:10 Labs: Laboratory Results - last 24 hr 09/23/23 09/23/23 14:10 17:30 MCV 95.6 MCH 32.4 MCHC 33.9 RDW 12.1 Plt Count 246 MPV 9.6 Immature Gran % (Auto) 0.2 Neut % (Auto) 57.9 Lymph % (Auto) 26.8 [place] % (Auto) 10.4 Eos % (Auto) 4.2 H Baso % (Auto) 0.5 Lymph # (Auto) 1.7 [place] # (Auto) 0.7 Eos # (Auto) 0.3 Baso # (Auto) 0.0 Abs Immat Gran (auto) 0.01 Absolute Neuts (auto) 3.6 Absolute Nucleated RBC 0.000 Nucleated RBC % (auto) 0.0 Anion Gap 13 Estim Creat Clear Calc 84.1 Estimated GFR > 60 Random Glucose 92 Calcium 9.0 Total Bilirubin 0.3 AST 22 ALT 19 Alkaline Phosphatase 46 Total Protein 6.4 L Albumin 3.8 Urine Color Yellow Urine Appearance Clear Urine pH 7.0 Ur Specific [place] 1.025 Urine Protein Negative Urine Glucose (UA) Negative Urine Ketones Negative Urine Blood Negative Urine Nitrite Negative Ur Leukocyte Esterase Negative Imaging Radiologist's Impressions: Impressions Head/Neck CTA 09/23/23 21:00 IMPRESSION: 1. No acute intracranial findings. 2. No acute arterial occlusion or hemodynamically significant stenosis within the head or neck. Assessment and Plan (1) Altered gait: Status: Acute Plan This is a 53-year-old male with pertinent history of autism disorder, cerebral palsy, developmental delay, mild systolic dysfunction with mitral valve prolapse, mood disorder, gastroesophageal reflux disease who was brought to the emergency department for evaluation of gait dysfunction. #. Gait dysfunction: Will admit patient with cardiac monitoring. Obtaining MRI and consulting Neurology. B12 and folate levels pending #. Mood disorder: Continue home mood stabilizers #. Gastroesophageal reflux disease: On famotidine #. Constipation: Continue home medications Med rec pending DVT prophylaxis: Lovenox Full code. Discussed with pigment and lacquer mixer at bedside Admit as inpatient and will require two night minimum hospital stay for evaluation of gait dysfunction (as above), which is not possible in a lesser acute setting. Specialist consult pending Quality Stroke Does the patient have a stroke diagnosis?: No VTE Prior VTE?: No VTE Risk Level:: Medical - moderate - high VTE Device Contraindication: Treatment Not Indicated VTE Drug Contraindication: N/A - Med Ordered
--- NOTE | 2023-09-23 22:12 | PHA.MEDREC ---
Pharmacy Consult ? Medication Reconciliation Pharmacy has completed the medication reconciliation. Confirmed list provided by family member by bedside.
[2023-09-23 22:20] VITALS: BP 91/51; PULSE 47; RESP 15; TEMP 36.2; O2SAT 95
--- NOTE | 2023-09-23 22:22 | MHC.EDTECH ---
Patient was incontinent of urine ,care given and bedding change ,[place] cath in Place ,vitals taken ,RN Halima is aware of Patient low blood pressure and low heart rate ,Patient sleeping ,cattle care worker at bedside .
[2023-09-23] MEDS: Enoxaparin Sodium 40 MG/0.4 ML SYRINGE SUBCUT (22:33)
[2023-09-23] MEDS: 0.9 % Sodium Chloride 1,000 ML 999 ML IV (22:33)
--- NOTE | 2023-09-23 22:39 | PC.NURSE ---
BPs 80s/50s. MD aware. IVF now infusing. staff at bedside states BP runs low usually but not this low
[2023-09-24] VITALS (12 sets, daily range): BP systolic 77–146; BP diastolic 44–71; PULSE 45–87; RESP 15–18; TEMP 36.1–37.1; O2SAT 96–100
[2023-09-24] MEDS: Albumin Human 25 % 100 ML IV ×2 (00:35→06:47)
[2023-09-24] MEDS: 0.9 % Sodium Chloride Flush 3 ML SYRINGE IVFLUSH (00:41)
--- NOTE | 2023-09-24 00:45 | PC.NURSE ---
BP 79/49 and HR 48. MD aware. albumin started.
[2023-09-24 00:48] LABS: Ammonia 57 umol/L (13-55)
--- NOTE | 2023-09-24 01:29 | PC.NURSE ---
arm board applied to L arm for IV
[2023-09-24 02:23] LABS: Folate 12.1 ng/mL (> or = 4.0); Vitamin B12 653 pg/mL (200-900)
[2023-09-24] MEDS: 0.9 % Sodium Chloride 1,000 ML 999 ML IV (02:55)
--- NOTE | 2023-09-24 03:00 | PC.NURSE ---
aware of low BP. IVF bolus started
[2023-09-24 04:33] LABS: Basophils Percent Auto 0.7 % (0-2); Eosinophils Absolute Auto 0.3 X10*3/uL (0.0-0.4); Eosinophils Percent Auto 6.1 % (0-4); Hematocrit 39.5 % (42.0-52.0); Hemoglobin 13.7 g/dl (14.0-18.0); Imm Gran Abs Auto 0.01 X10*3/uL (0.00-0.03); Imm Gran Pct Auto 0.2 % (0.0-0.4); Lymphocytes Absolute Auto 1.6 X10*3/uL (1.2-4.9); Lymphocytes Percent Auto 38.1 % (20-40); MANUAL DIFF FLAG NO; Mean Corpuscular HGB Conc 34.7 g/dl (31.0-36.0); Mean Corpuscular Hemoglobin 32.7 pg (27.0-33.0); Mean Corpuscular Volume 94.3 fL (80.0-98.0); Mean Platelet Volume 9.1 fL (9.4-12.4); Monocytes Absolute Auto 0.5 X10*3/uL (0.1-1.2); Monocytes Percent Auto 11.9 % (2-11); Neutrophils Absolute Auto 1.8 x10*3/uL (2.0-8.3); Platelet Count 230 X10*3/uL (160-400); Red Blood Count 4.19 X10*6/uL (4.60-5.80); Red Cell Distribution Width 12.2 % (11.0-16.0); White Blood Count 4.3 X10*3/uL (4.8-10.8)
[2023-09-24 04:46] LABS: Anion Gap 12 (12-20); Blood Urea Nitrogen 12 mg/dL (9-16); Calcium 8.3 mg/dL (8.4-10.2); Carbon Dioxide 27 mmol/L (22-29); Chloride 111 mmol/L (96-108); Creatinine Clr Calc Pharmacy 88.1; Estimated Glomerular Filt Rate > 60; Glucose Random 80 mg/dL (60-115); Potassium 4.4 mmol/L (3.3-5.1); Sodium 146 mmol/L (135-145)
--- NOTE | 2023-09-24 07:28 | PC.NURSE ---
This RN assumed care, pt is alert, non-verbal. At his baseline per staff member at bedside. Pt is pulling at things in the bed, won't allow ECG wires to be on him. IV is wrapped by previous RN due to risk of pt pulling it out. Breathing even and unlabored. MRI screening form done to best of RN ability with staff member and pts hx book.
--- NOTE | 2023-09-24 08:02 | PC.NURSE ---
RN attempted to place pt back on equipment monitor phototypesetting. Sinus geovanny in 50s. Pt playing with wires, hard to maintain.
--- NOTE | 2023-09-24 09:33 | MHC.CM.PN ---
Pt is non verbal, developmentally disabled, he has his detention staff member with him in his room. CM contacted detention and mother, requesting HCP or guardianship paperwork to have on file, mother will call me back about this. CM requested paperwork from detention for DC, awaiting visit from detention nurse. DCP: return to detention, via detention staff or BLS. CM to follow and assist with DC planning.
[2023-09-24] MEDS: 0.9 % Sodium Chloride 1,000 ML 80 ML IVCONT (09:45)
--- NOTE | 2023-09-24 11:25 | PM.NEUROCN ---
History of Present Illness Data of Consult Service Date: 09/24/23 Primary Care Provider: Jason Mason MD [facility] Reason for consult: Difficulty walking 53 years old man with chronic static encephalopathy of unknown etiology resulting in autism type of features not able to verbally communicate was brought to hospital by the staff where he lived with 3 days history of difficulty walking. There was no obvious sign of trauma infection or metabolic abnormality. Issue of stroke was raised in he had a CTA of brain and neck in emergency room. Review of Systems Review of Systems: Could not be done with him [facility] Past Medical History Medical History Nonverbal Weight disorder Gingivitis Eczema Dysphagia Constipation MR (mitral regurgitation) Mitral valve prolapse Vitamin D deficiency Tachycardia Acne Impulse control disorder Anxiety Cerebral palsy Autism History of pica Social History Social History Unable to assess alcohol history related to: Unable to respond Alcohol intake: never Patient Tobacco Use Status: Never used Tobacco service: No Meds Allergies Allergy/AdvReac Type Severity Reaction Status Date / Time Benzodiazepines Allergy Unknown UNKNOWN Verified 09/23/23 13:37 [BENZODIAZEPINES] benztropine [BENZTROPINE] Allergy Unknown UNKNOWN Verified 09/23/23 13:37 lorazepam [From ATIVAN] Allergy Unknown UNKNOWN Verified 09/23/23 13:37 tretinoin [From RETIN-A] Allergy Unknown UNKNOWN Verified 09/23/23 13:37 Active Medications: Current Medications Acetaminophen (Acetaminophen 325 Mg Tablet) 650 mg PO Q6H PRN PRN Reason: Pain, Mild (Pain Scale 1-3) Aspirin (Aspirin Enteric Coated 81 Mg Tablet.Dr) 81 mg PO DAILY [facility] Bisacodyl (Bisacodyl 10 Mg Supp.Rect) 10 mg [place] ONCE PRN PRN Reason: constipation; if MOM doesnt work Carbamide Peroxide (Carbamide Peroxide 6.5% Otic 15 Ml Drpbtl) 3 drop EAR-BOTH MOWEFR [facility] Docusate Sodium (Docusate Sodium 100 Mg Capsule) 100 mg PO BID [facility] Enoxaparin Sodium (Enoxaparin Sodium 40 Mg/0.4 Ml Syringe) 40 mg SUBCUT Q24H ALANNA Last Admin: 09/23/23 22:33 Dose: 40 mg Famotidine (Famotidine 20 Mg Tablet) 20 mg PO BID [facility] Sodium Chloride (Ns) 1,000 mls @ 80 mls/hr IVCONT .[id number] [facility] Last Admin: 09/24/23 09:45 Dose: 80 mls/hr Loratadine (Loratadine 10 Mg Tablet) 10 mg PO DAILY [facility] Magnesium Hydroxide (Milk Of Magnesia 30 Ml Oral.Susp) ml PO Q72H PRN PRN Reason: Constipation, if no BM in 3 days Melatonin (Melatonin 3 Mg Tablet) 6 mg PO BEDTIME PRN PRN Reason: Insomnia Multivitamins/Vitamin C (Multivitamin Tablet) 1 tab PO DAILY [facility] Non-Formulary Medication (Citalopram) 20 mg PO DAILY [facility] Ondansetron HCl (Ondansetron Hcl 4 Mg/2 Ml Vial) 4 mg IVPUSH Q8H PRN PRN Reason: Nausea and Vomiting Polyethylene Glycol (Polyethylene Glycol 3350 17 Gm Powd.Pack) 17 gm PO BEDTIME [facility] Risperidone (Risperidone 1 Mg Tablet) 1 mg PO BEDTIME [facility] Risperidone (Risperidone 0.5 Mg Tablet) 0.5 mg PO DAILY [facility] Simethicone (Simethicone 80 Mg Tab.Chew) 80 mg PO BID [facility] Sodium Chloride (0.9 % Sodium Chloride Flush 3 Ml Syringe) 3 ml IVFLUSH QSHIFT [facility] Last Admin: 09/24/23 07:16 Dose: Not Given Vitamin D (Cholecalciferol (Vitamin D3) 25 Mcg Tablet) 25 mcg PO DAILY [facility] Home Medications ?Medication ?Instructions ?Recorded ?Confirmed ?Last Taken ?Type acetaminophen 325 mg tablet 650 mg PO Q6H PRN pain or temp 08/06/23 09/23/23 Unknown History aspirin 81 mg tablet,delayed 81 mg PO DAILY 08/06/23 09/23/23 Unknown History release bacitracin zinc 500 unit/gram 1 appl topical DAILY PRN penile 08/06/23 09/23/23 Unknown History topical ointment lesions or abrasions betamethasone dipropionate 0.05 % 1 appl topical BID PRN rash on 08/06/23 09/23/23 Unknown History topical cream back or abdomen carbamide peroxide 6.5 % ear drops 3 drp otic (ears) MOWEFR 08/06/23 09/23/23 Unknown History (Debrox) cholecalciferol (vitamin D3) 25 25 mcg PO DAILY 08/06/23 09/23/23 Unknown History mcg (1,000 unit) tablet citalopram 10 mg tablet 20 mg PO DAILY 08/06/23 09/23/23 Unknown History docusate sodium 100 mg capsule 100 mg PO BID 08/06/23 09/23/23 Unknown History fluoride (sodium) 1.1 % dental 1 appl dental BID 08/06/23 09/23/23 Unknown History cream (SF 5000 Plus) lactase 3,000 unit tablet (Lactaid) 3,000 unit PO BID PRN dairy 08/06/23 09/23/23 Unknown History intolerance loratadine 10 mg tablet 10 mg PO DAILY 08/06/23 09/23/23 Unknown History magnesium hydroxide 400 mg/5 mL 2,400 mg PO Q72H PRN Constipation, 08/06/23 09/23/23 Unknown History oral suspension (Milk of Magnesia) if no BM in 3 days multivitamin 1 tab PO DAILY 08/06/23 09/23/23 Unknown History risperidone 0.5 mg tablet 0.5 mg PO DAILY 08/06/23 09/23/23 Unknown History risperidone 1 mg tablet 1 mg PO BEDTIME 08/06/23 09/23/23 Unknown History benzoyl peroxide 5 % topical gel 1 appl topical BID 09/23/23 09/23/23 Unknown History bisacodyl 10 mg rectal suppository 10 mg [place] ONCE PRN constipation; if 09/23/23 09/23/23 Unknown History (OneLAX Bisacodyl) MOM doesnt work clindamycin phosphate 1 % topical 1 appl topical BID PRN Groin Cyst 09/23/23 09/23/23 Unknown History gel famotidine 20 mg tablet 20 mg PO BID 09/23/23 09/23/23 Unknown History guaifenesin 200 mg/5 mL oral liquid 400 mg PO QID PRN Cough 09/23/23 09/23/23 Unknown History mineral oil-isopropyl myristat 1 appl topical BID 09/23/23 09/23/23 Unknown History lotion polyethylene glycol 3350 17 17 g PO BEDTIME 09/23/23 09/23/23 Unknown History gram/dose oral powder simethicone 80 mg chewable tablet 80 mg PO BID 09/23/23 09/23/23 Unknown History Physical Exam Vital Signs: Vital Signs: Last Vital Signs Temp 98.1 F 09/24/23 09:00 Pulse 81 09/24/23 09:00 Resp 16 09/24/23 09:00 BP 121/71 09/24/23 09:00 Pulse Ox 100 09/24/23 09:00 O2 Del Method Room Air 09/24/23 09:00 BMI result Body Mass Index 19.3 Neuro: Other: He is alert and awake restless made eye contact did not communicate with somewhat distended belly. Face seems symmetrical. Visual erickson were difficult to determine. He is moving all 4 extremities. Exam is limited. Results Labs 09/24/23 04:29 09/24/23 04:29 Labs: Short CBC 09/23/23 09/24/23 Range/Units 14:10 04:29 WBC 6.2 4.3 L (4.8-10.8) X10*3/uL Hgb 14.0 13.7 L (14.0-18.0) g/dl Hct 41.3 L 39.5 L (42.0-52.0) % Plt Count 246 230 (160-400) X10*3/uL BMP 09/23/23 09/24/23 14:10 04:29 Sodium 140 146 H Potassium 4.4 4.4 Chloride 105 111 H Carbon Dioxide 26 27 BUN 25 H 12 Creatinine 0.66 0.63 Calcium 9.0 8.3 L D Liver Function 09/23/23 Range/Units 14:10 Total Bilirubin 0.3 (0.0-1.0) mg/dL AST 22 (5-37) U/L ALT 19 (0-40) U/L Alkaline Phosphatase 46 (39-117) U/L Albumin 3.8 (3.5-5.0) g/dL Urine 09/23/23 Range/Units 17:30 Urine Color Yellow Urine Appearance Clear Urine pH 7.0 (5.0-9.0) Ur Specific [place] 1.025 (1.005-1.025) Urine Protein Negative (Neg-Trace) mg/dL Urine Glucose (UA) Negative (Negative) mg/dL Noncontrast head CT did not reveal any significant acute or chronic abnormality other than mild enlargement of ventricles Assessment and Plan (1) Altered gait: Status: Acute 53 years old man with underlying significant physical and cognitive disability related to chronic static encephalopathy was brought to emergency room with 2-3 days history of difficulty walking with no obvious explanation. His exam was relatively nonfocal and difficult to interpret. Likely cause of unsteadiness was probably metabolic in origin. There was no evidence of focal lesion on his brain imaging. As far as ischemic stroke is concerned, baby aspirin daily can be started for stroke prevention but I am not sure if that is the real issue. I recommend hydration and ruling out infection. Procedures Date of Service Date of Service: 09/24/23
--- NOTE | 2023-09-24 12:03 | MHC.CM.PN ---
Pt.'s [facility] nurse gave CM paperwork for doctor to sign for DC when pt. is ready to go back to [facility]. They also require DC summary to be signed by Provider. CM was informed that pt. cannot go back to [facility] on weekend, beginning 4pm on Thursday.
--- NOTE | 2023-09-24 16:46 | HO.PM.IMPN ---
Subjective Subjective Date of Service: 09/24/23 Interval History: nonverbal [baseline] no fever history per [facility] staff Review of Systems Review of Systems: Yes Unobtainable due to mental status Physical Exam Vital Signs: Vital Signs: Last Vital Signs Temp 97.6 F 09/24/23 16:00 Pulse 70 09/24/23 16:00 Resp 18 09/24/23 16:00 BP 116/60 09/24/23 16:00 Pulse Ox 99 09/24/23 16:00 O2 Del Method Room Air 09/24/23 16:00 BMI result Body Mass Index 20.0 Gen: in no acute distress HEENT: sclera anicteric, moist mucus membranes Neck: supple Lungs: clear to auscultation bilaterally Heart: regular rate and rhythm, no murmurs Abd: soft, non-tender, non-distended Ext: no edema Skin: warm/well-perfused Neuro: alert, non-verbal, moving all extremities Psych: impaired insight Objective Data Active Medications Acetaminophen (Acetaminophen 325 Mg Tablet) 650 mg PO Q6H PRN PRN Reason: Pain, Mild (Pain Scale 1-3) Aspirin (Aspirin Enteric Coated 81 Mg Tablet.Dr) 81 mg PO DAILY [facility] Bisacodyl (Bisacodyl 10 Mg Supp.Rect) 10 mg [place] ONCE PRN PRN Reason: constipation; if MOM doesnt work Carbamide Peroxide (Carbamide Peroxide 6.5% Otic 15 Ml Drpbtl) 3 drop EAR-BOTH MOWEFR [facility] Docusate Sodium (Docusate Sodium 100 Mg Capsule) 100 mg PO BID [facility] Enoxaparin Sodium (Enoxaparin Sodium 40 Mg/0.4 Ml Syringe) 40 mg SUBCUT Q24H [facility] Last Admin: 09/23/23 22:33 Dose: 40 mg Documented By: ALISIA Escitalopram Oxalate (Escitalopram Oxalate 5 Mg Tablet) 5 mg PO DAILY [facility] Famotidine (Famotidine 20 Mg Tablet) 20 mg PO BID [facility] Sodium Chloride (Ns) 1,000 mls @ 80 mls/hr IVCONT .[id number] [facility] Last Admin: 09/24/23 09:45 Dose: 80 mls/hr Documented By: KRISSY Loratadine (Loratadine 10 Mg Tablet) 10 mg PO DAILY [facility] Magnesium Hydroxide (Milk Of Magnesia 30 Ml Oral.Susp) 30 ml PO Q72H PRN PRN Reason: Constipation, if no BM in 3 days Melatonin (Melatonin 3 Mg Tablet) 6 mg PO BEDTIME PRN PRN Reason: Insomnia Multivitamins/Vitamin C (Multivitamin Tablet) 1 tab PO DAILY [facility] Ondansetron HCl (Ondansetron Hcl 4 Mg/2 Ml Vial) 4 mg IVPUSH Q8H PRN PRN Reason: Nausea and Vomiting Polyethylene Glycol (Polyethylene Glycol 3350 17 Gm Powd.Pack) 17 gm PO BEDTIME [facility] Risperidone (Risperidone 1 Mg Tablet) 1 mg PO BEDTIME [facility] Risperidone (Risperidone 0.5 Mg Tablet) 0.5 mg PO DAILY [facility] Simethicone (Simethicone 80 Mg Tab.Chew) 80 mg PO BID [facility] Sodium Chloride (0.9 % Sodium Chloride Flush 3 Ml Syringe) 3 ml IVFLUSH QSHIFT [facility] Last Admin: 09/24/23 15:36 Dose: Not Given Documented By: KRISSY Non-Admin Reason: iv fluids running Vitamin D (Cholecalciferol (Vitamin D3) 25 Mcg Tablet) 25 mcg PO DAILY [facility] Labs 09/24/23 04:29 09/24/23 04:29 Labs: Laboratory Results - last 24 hr 09/23/23 09/23/23 09/24/23 17:30 22:57 04:29 MCV 94.3 MCH 32.7 MCHC 34.7 RDW 12.2 Plt Count 230 MPV 9.1 L Immature Gran % (Auto) 0.2 Neut % (Auto) 43.0 L Lymph % (Auto) 38.1 [place] % (Auto) 11.9 H Eos % (Auto) 6.1 H Baso % (Auto) 0.7 Lymph # (Auto) 1.6 [place] # (Auto) 0.5 Eos # (Auto) 0.3 Baso # (Auto) 0.0 Abs Immat Gran (auto) 0.01 Absolute Neuts (auto) 1.8 L Absolute Nucleated RBC 0.000 Nucleated RBC % (auto) 0.0 Anion Gap 12 Estim Creat Clear Calc 88.1 Estimated GFR > 60 Random Glucose 80 Calcium 8.3 L D Ammonia 57 H Vitamin B12 653 Folate 12.1 Urine Color Yellow Urine Appearance Clear Urine pH 7.0 Ur Specific [place] 1.025 Urine Protein Negative Urine Glucose (UA) Negative Urine Ketones Negative Urine Blood Negative Urine Nitrite Negative Ur Leukocyte Esterase Negative Impressions Head/Neck CTA 09/23/23 21:00 IMPRESSION: 1. No acute intracranial findings. 2. No acute arterial occlusion or hemodynamically significant stenosis within the head or neck. Assessment and Plan (1) Altered gait: Status: Acute Plan d2 53yo M with autism, cerebral palsy, developmental delay, systolic dysfunction with mitral valve prolapse, mood disorder, GERD sent in for impaired gait gait impairment - discussed with Neurology, no additional information would be gained from MRI so study cancelled. PT eval: pt now at baseline mood disorder - continue citalopram, risperidone GERD - H2RA VTE ppx - LMWH dispo - anticipate eventual return to In my clinical judgment, the patient requires continued inpatient hospitalization for the following reasons: coordinate return to [facility] Total time managing care of this patient today: 35 minutes. Quality Stroke Does the patient have a stroke diagnosis?: No VTE Prior VTE?: No VTE Risk Level:: Medical - moderate - high VTE Device Contraindication: Treatment Not Indicated VTE Drug Contraindication: N/A - Med Ordered
[2023-09-24] MEDS: Melatonin 3 MG TABLET 6 MG PO (21:47)
[2023-09-24] MEDS: Enoxaparin Sodium 40 MG/0.4 ML SYRINGE SUBCUT (21:48)
[2023-09-24] MEDS: risperiDONE 1 MG TABLET PO (21:48)
[2023-09-24] MEDS: Famotidine 20 MG TABLET PO (21:48)
[2023-09-24] MEDS: Simethicone 80 MG TAB.CHEW PO (21:48)
[2023-09-25 07:46] VITALS: BP 107/62; PULSE 72; RESP 20; TEMP 36.4; O2SAT 100
[2023-09-25 07:53] LABS: Anion Gap 12 (12-20); Blood Urea Nitrogen 12 mg/dL (9-16); Carbon Dioxide 31 mmol/L (22-29); Chloride 106 mmol/L (96-108); Creatinine Clr Calc Pharmacy 76.6; Estimated Glomerular Filt Rate > 60; Glucose Random 83 mg/dL (60-115); Potassium 4.3 mmol/L (3.3-5.1); Sodium 145 mmol/L (135-145)
[2023-09-25] MEDS: Escitalopram Oxalate 5 MG TABLET PO (09:40)
[2023-09-25] MEDS: Aspirin Enteric Coated 81 MG TABLET.DR PO (09:40)
[2023-09-25] MEDS: risperiDONE 0.5 MG TABLET PO (09:40)
[2023-09-25] MEDS: Famotidine 20 MG TABLET PO (09:41)
[2023-09-25] MEDS: Loratadine 10 MG TABLET PO (09:42)
[2023-09-25] MEDS: Docusate Sodium 100 MG CAPSULE PO (09:42)
[2023-09-25] MEDS: Cholecalciferol (Vitamin D3) 25 MCG TABLET PO (09:43)
[2023-09-25] MEDS: Multivitamin TABLET 1 TAB PO (09:43)
[2023-09-25] MEDS: Simethicone 80 MG TAB.CHEW PO (09:43)
[2023-09-25] MEDS: 0.9 % Sodium Chloride Flush 3 ML SYRINGE IVFLUSH (09:44)
--- NOTE | 2023-09-25 10:51 | P.F2F_ITS ---
Service Date Service Date: 09/25/23 Encounter Date of encounter: 09/25/23 Reasons for Services Signs and symptoms assessed: Attach PT note from 09/24/23 Reason for physical therapy: home safety and mobility, therapeutic exercises, gait/transfer training, assess need for DME, ADL training and energy conservation MD Overseeing Care: Jason Mason Homebound: Leaving the home is medically contraindicated at this time without the asist of a device and/or another person due th the listed conditions above and below. Reason homebound: unsteady gait / fall risk and psychologically impaired / unsafe Homebound supporting statement: attach PT evaluation from 09/24/23 Certification: Based on the above findings, I certify that this patient is confined to the home and needs intermittent residential care, physical therapy and/or speech therapy, or continues to need occupational therapy. The patient is under my care, and I have initiated the establishment of the plan of care. The patient will be followed by a physician who will periodically review the plan of care. Time Spent With Patient Time: Total time managing care of this patient today ____ minutes.
--- NOTE | 2023-09-25 11:03 | P.DS_ITS ---
DS: Providers Provider Date of Service: 09/25/23 Date of admission: 09/23/23 22:08 Primary care physician: Jason Mason MD Consults: 09/23/23 23:02 Consult to Neurology Routine Consulting Provider: [facility] Reason for consultation: gait dysfunction DS: Diagnosis Discharge Diagnosis (1) Altered gait: Status: Acute DS: Summary Hospital Course Hospital Course: From the history and physical by the admitting hospitalist, Valentín Ibarra MD, 09/23/23: This is a 53-year-old male with pertinent history of autism disorder, cerebral palsy, developmental delay, mild systolic dysfunction with mitral valve prolapse, mood disorder, gastroesophageal reflux disease who was brought to the emergency department for evaluation of gait dysfunction. Unable to obtain history from the patient. Patient only opens eyes in response to voice. Does not follow commands. Is nonverbal at baseline. As per the caregiver at bedside, patient has been unsteady on his feet for the last 3 days. No rhythmic jerking movement of extremities. Also has been having foul-smelling urine. Unable to obtain review of systems. In the emergency department, CT head and neck without any acute abnormalities. 53yo M with autism, cerebral palsy, developmental delay, systolic dysfunction with mitral valve prolapse, mood disorder, and GERD sent in for impaired gait. No specific cause was identified on laboratory testing or CT scan. No evidence of UTI or other infections. Gait impairment resolved to his baseline and home PT was recommended. Neurology was consulted and no additional actionable inform ation would be gained from an MRI [for which the patient would require anesthesia to stay still], so an MRI was not done. He was discharged back to the intermediate with no medication changes. Time Attestation Discharge Coordination Time (in mins): 35 Quality: Safe Use of Opioids Does Pt have an Active Cancer Diagnosis on the Problem List?: No Quality: Stroke Does the patient have a stroke diagnosis?: No Physical Exam Vital Signs: Vital Signs: Last Vital Signs Temp 97.6 F 09/25/23 07:46 Pulse 72 09/25/23 07:46 Resp 20 09/25/23 07:46 BP 107/62 09/25/23 07:46 Pulse Ox 100 09/25/23 07:46 O2 Del Method Room Air 09/25/23 07:46 BMI result Body Mass Index 20.0 Gen: in no acute distress HEENT: sclera anicteric, moist mucus membranes Neck: supple Lungs: clear to auscultation bilaterally Heart: regular rate and rhythm, no murmurs Abd: soft, non-tender, non-distended Ext: no edema Skin: warm/well-perfused Neuro: alert, non-verbal, ambulating at baseline status Psych: impaired insight DS: Data Data Completed and Pending Completed studies during hospitalization [Text1]: Laboratory Results WBC 4.3 X10*3/uL (4.8-10.8) L 09/24/23 04:29 RBC 4.19 X10*6/uL (4.60-5.80) L 09/24/23 04:29 Hgb 13.7 g/dl (14.0-18.0) L 09/24/23 04:29 Hct 39.5 % (42.0-52.0) L 09/24/23 04:29 MCV 94.3 fL (80.0-98.0) 09/24/23 04:29 MCH 32.7 pg (27.0-33.0) 09/24/23 04:29 MCHC 34.7 g/dl (31.0-36.0) 09/24/23 04:29 RDW 12.2 % (11.0-16.0) 09/24/23 04:29 Plt Count 230 X10*3/uL (160-400) 09/24/23 04:29 MPV 9.1 fL (9.4-12.4) L 09/24/23 04:29 Immature Gran % (Auto) 0.2 % (0.0-0.4) 09/24/23 04:29 Neut % (Auto) 43.0 % (45-73) L 09/24/23 04:29 Lymph % (Auto) 38.1 % (20-40) 09/24/23 04:29 [place] % (Auto) 11.9 % (2-11) H 09/24/23 04:29 Eos % (Auto) 6.1 % (0-4) H 09/24/23 04:29 Baso % (Auto) 0.7 % (0-2) 09/24/23 04:29 Lymph # (Auto) 1.6 X10*3/uL (1.2-4.9) 09/24/23 04:29 [place] # (Auto) 0.5 X10*3/uL (0.1-1.2) 09/24/23 04:29 Eos # (Auto) 0.3 X10*3/uL (0.0-0.4) 09/24/23 04:29 Baso # (Auto) 0.0 X10*3/uL (0.0-0.2) 09/24/23 04:29 Abs Immat Gran (auto) 0.01 X10*3/uL (0.00-0.03) 09/24/23 04:29 Absolute Neuts (auto) 1.8 x10*3/uL (2.0-8.3) L 09/24/23 04:29 Absolute Nucleated RBC 0.000 X10*3/uL (0.0-0.012) 09/24/23 04:29 Nucleated RBC % (auto) 0.0 /100WBC (0.0-0.2) 09/24/23 04:29 Hold Purple Top SEE NOTE 09/25/23 07:30 Sodium 145 mmol/L (135-145) 09/25/23 07:08 Potassium 4.3 mmol/L (3.3-5.1) 09/25/23 07:08 Chloride 106 mmol/L (96-108) 09/25/23 07:08 Carbon Dioxide 31 mmol/L (22-29) H 09/25/23 07:08 Anion Gap 12 (12-20) 09/25/23 07:08 BUN 12 mg/dL (9-16) 09/25/23 07:08 Creatinine 0.75 mg/dL (0.5-1.4) 09/25/23 07:08 Estim Creat Clear Calc 76.6 09/25/23 07:08 Estimated GFR > 60 09/25/23 07:08 Random Glucose 83 mg/dL (60-115) 09/25/23 07:08 Calcium 10.0 mg/dL (8.4-10.2) D 09/25/23 07:08 Total Bilirubin 0.3 mg/dL (0.0-1.0) 09/23/23 14:10 AST 22 U/L (5-37) 09/23/23 14:10 ALT 19 U/L (0-40) 09/23/23 14:10 Alkaline Phosphatase 46 U/L (39-117) 09/23/23 14:10 Ammonia 57 umol/L (13-55) H 09/23/23 22:57 Total Protein 6.4 g/dL (6.5-8.0) L 09/23/23 14:10 Albumin 3.8 g/dL (3.5-5.0) 09/23/23 14:10 Vitamin B12 653 pg/mL (200-900) 09/23/23 22:57 Folate 12.1 ng/mL (> or = 4.0) 09/23/23 22:57 Urine Color Yellow 09/23/23 17:30 Urine Appearance Clear 09/23/23 17:30 Urine pH 7.0 (5.0-9.0) 09/23/23 17:30 Ur Specific [place] 1.025 (1.005-1.025) 09/23/23 17:30 Urine Protein Negative mg/dL (Neg-Trace) 09/23/23 17:30 Urine Glucose (UA) Negative mg/dL (Negative) 09/23/23 17:30 Urine Ketones Negative mg/dL (Negative) 09/23/23 17:30 Urine Blood Negative (Negative) 09/23/23 17:30 Urine Nitrite Negative (Negative) 09/23/23 17:30 Ur Leukocyte Esterase Negative (Negative) 09/23/23 17:30 Impressions Head/Neck CTA 09/23/23 21:00 IMPRESSION: 1. No acute intracranial findings. 2. No acute arterial occlusion or hemodynamically significant stenosis within the head or neck. Discharge Plan Discharge Anticipated Discharge Date/Time: 09/25/23 10:49 Patient Disposition: Home Health Service Discharge Diagnosis: altered gait Referrals: Jason Mason MD [Primary Care Provider] - 1 Week Discharge Medications: Continued citalopram 10 mg tablet 20 mg PO DAILY docusate sodium 100 mg capsule 100 mg PO BID loratadine 10 mg tablet 10 mg PO DAILY risperidone 0.5 mg tablet 0.5 mg PO DAILY cholecalciferol (vitamin D3) 25 mcg (1,000 unit) tablet 25 mcg PO DAILY risperidone 1 mg tablet 1 mg PO BEDTIME multivitamin Tablet 1 tab PO DAILY aspirin 81 mg Tablet,Delayed Release (Dr/Ec) 81 mg PO DAILY Debrox 6.5 % Drops 3 drp OTIC (EARS) MOWEFR fluoride (sodium) [SF 5000 Plus] 1.1 % Cream 1 appl DENTAL BID acetaminophen 325 mg tablet 650 mg PO Q6H PRN (Reason: pain or temp) bacitracin zinc 500 unit/gram Ointment 1 appl TOPICAL DAILY PRN (Reason: penile lesions or abrasions) magnesium hydroxide [Milk of Magnesia] 400 mg/5 mL Suspension 2,400 mg PO Q72H PRN (Reason: Constipation, if no BM in 3 days) lactase [Lactaid] 3,000 unit Tablet 3,000 unit PO BID PRN (Reason: dairy intolerance) Rx Instructions: administer with meals and/or snacks betamethasone dipropionate 0.05 % Cream 1 appl TOPICAL BID PRN (Reason: rash on back or abdomen) Rx Instructions: apply for 2 weeks prn, contact md if not resolved benzoyl peroxide 5 % Gel 1 appl TOPICAL BID Patient Comments: Apply to face acne, cyst mixed with clindamycin clindamycin phosphate 1 % gel 1 appl topical BID PRN (Reason: Groin Cyst) Rx Instructions: apply to groin cysts, also mixed with benzoyl peroxide and ply to face acne bisacodyl [OneLAX Bisacodyl] 10 mg suppository 10 mg [place] ONCE PRN (Reason: constipation; if MOM doesnt work) polyethylene glycol 3350 17 gram/dose powder 17 g PO BEDTIME Rx Instructions: Give one capful in 4-8oz of fluid by mouth daily in the pm simethicone 80 mg tablet,chewable 80 mg PO BID mineral oil-isopropyl myristat Lotion 1 appl TOPICAL BID Rx Instructions: apply a thin film to dry areas of skin guaifenesin 200 mg/5 mL Liquid 400 mg PO QID PRN (Reason: Cough) famotidine 20 mg tablet 20 mg PO BID Discharge Orders: Discharge Order (Routine); Ordered 09/25/23 Ordered By: Marlon Ramos Diet: Advance to usual diet Activity on Discharge: As tolerated Stand Alone Forms: Patient Portal Discharge page Print Language: Faroese Care Plan Goals: quality of life Health Concerns: altered gait Plan of Treatment: continue home medications home physical therapy via [facility] Please follow up with your primary care doctor within 1 week. Return to the hospital if you experience recurrent or worsening symptoms. Assessment: See Discharge Summary.
[2023-09-25 11:20] VITALS: BP 109/65; PULSE 72; RESP 20; TEMP 36.1; O2SAT 100
--- NOTE | 2023-09-25 11:20 | MHC.CM.PN ---
Pt has been medically cleared for DC, he will go home via BLS to his [facility]. PT rec home PT, referrals out, none accepting at this time, pt.'s insurance and [facility] staffing capacity is limiting his options. [facility] nurse said he will be seen by program PT and OT when he gets home from hosp.
[2023-09-25] MEDS: Carbamide Peroxide 6.5% Otic 15 ML DRPBTL 3 DROP EAR-BOTH (11:42)
== END 2023-09-25 15:03 | disposition home health service (06) | DRG 58 ==
LOC: HO.ED 20:56 → HO.EDOVER 22:11 → HO.IMC 09-24 07:27
PROVIDERS: Registered Nurse Emergency; Admitting Provider Student in an Organized Health Care Education/Training Program; Emergency Provider Student in an Organized Health Care Education/Training Program; PCP Internal Medicine; Visit Provider Family Medicine
DX: R26.81 Unsteadiness on feet (principal); G93.49 Other encephalopathy; F84.0 Autistic disorder; G80.9 Cerebral palsy, unspecified; I95.9 Hypotension, unspecified; F39 Unspecified mood [affective] disorder; K21.9 Gastro-esophageal reflux disease without esophagitis; R62.50 Unspecified lack of expected normal physiological development in childhood; K59.00 Constipation, unspecified; Z79.82 Long term (current) use of aspirin; Z79.899 Other long term (current) drug therapy
CPT/HCPCS: 36415; 70496; 70498; 80048; 80053; 81003; 82140; 82607; 82746; 85025; 97161; 99285; J1630; J1650; J2250; P9047; Q9967

== ENCOUNTER → 2023-09-23 22:08 | Outpatient (BNV) | payer OTHER, SELFPAY | PROVIDERS: Admitting Provider Student in an Organized Health Care Education/Training Program; Emergency Provider Student in an Organized Health Care Education/Training Program; PCP Internal Medicine; Visit Provider Psychiatry & Neurology Neurology | DX: R26.9 Unspecified abnormalities of gait and mobility (principal); G93.49 Other encephalopathy | CPT/HCPCS: 99222 ==

== ENCOUNTER → 2023-09-23 22:08 | Outpatient (BNV) | payer OTHER, SELFPAY | PROVIDERS: Admitting Provider Student in an Organized Health Care Education/Training Program; Emergency Provider Student in an Organized Health Care Education/Training Program; PCP Internal Medicine; Visit Provider Student in an Organized Health Care Education/Training Program | DX: R26.9 Unspecified abnormalities of gait and mobility (principal) | CPT/HCPCS: 99222; 99232; 99239; G0180 ==

== ENCOUNTER 2023-10-05 09:25 | Emergency (ER) | payer OTHER, SELFPAY ==
--- NOTE | ~2023-10-05 | XR_ITS ---
EXAMINATION: XR RIGHT KNEE XR RIGHT HIP WITH PELVIS CLINICAL INFORMATION: Bruising. COMPARISON: None TECHNIQUE: Pelvis, oblique view Right hip, 2 views Right knee, 2 views FINDINGS: PELVIS AND RIGHT HIP: The process safety engineering technologist reports that the patient was unable to remain still on the table for imaging evaluation and this would account for the oblique positioning on the pelvis radiograph. The osseous pelvic ring is intact. The joint space of each hip is maintained. The two views of the right hip show the femoral head to be well-positioned within the acetabulum. No evidence of a degenerative or inflammatory arthropathy. No proximal femoral or acetabular fracture. Soft tissues are grossly normal. RIGHT KNEE: No knee joint effusion or focal soft tissue swelling. There is patella claudio with Insall-Salvati ratio of 1.7. The joint spaces are maintained. No arthritic deformity, fracture or subluxation. XR/XR knee RT 2V IMPRESSION: * No evidence of acute osseous injury at the right hip or knee. * Patella claudio is noted. Otherwise, the right knee is unremarkable.
--- NOTE | ~2023-10-05 | XR_ITS ---
EXAMINATION: XR RIGHT KNEE XR RIGHT HIP WITH PELVIS CLINICAL INFORMATION: Bruising. COMPARISON: None TECHNIQUE: Pelvis, oblique view Right hip, 2 views Right knee, 2 views FINDINGS: PELVIS AND RIGHT HIP: The radiology nurse reports that the patient was unable to remain still on the table for imaging evaluation and this would account for the oblique positioning on the pelvis radiograph. The osseous pelvic ring is intact. The joint space of each hip is maintained. The two views of the right hip show the femoral head to be well-positioned within the acetabulum. No evidence of a degenerative or inflammatory arthropathy. No proximal femoral or acetabular fracture. Soft tissues are grossly normal. RIGHT KNEE: No knee joint effusion or focal soft tissue swelling. There is patella claudio with Insall-Salvati ratio of 1.7. The joint spaces are maintained. No arthritic deformity, fracture or subluxation. XR/XR hip RT w PEL1V IMPRESSION: * No evidence of acute osseous injury at the right hip or knee. * Patella claudio is noted. Otherwise, the right knee is unremarkable.
--- NOTE | ~2023-10-05 | XR_ITS ---
EXAMINATION: XR CHEST CLINICAL INFORMATION: Bruising of left-sided ribs. COMPARISON: 09/15/2023 TECHNIQUE: Frontal view of the chest was obtained. FINDINGS: Lungs are hypoinflated and clear. No pneumothorax or pleural effusion. Cardiac silhouette has normal size and contour. The pulmonary vascular pattern is normal. On this AP portable chest radiograph, the ribs have an intact appearance. No evidence of acute displaced rib fracture. The clavicles are normal. XR/XR chest 1V IMPRESSION: No acute cardiopulmonary disease.
[2023-10-05 09:47] VITALS: BP 94/41; PULSE 68; PULSE 86; RESP 20; TEMP 36.2; O2SAT 100; BMI 19.8
--- NOTE | 2023-10-05 10:11 | ED.GENADULT ---
HPI - General Adult General Chief complaint: General Medical Stated complaint: LLE INCREASED SWELLING/BRUISING,FROM [facility] Time Seen by Provider: 10/05/23 09:27 Source: EMS, old records reviewed and other (nursing home staff) Mode of arrival: EMS Limitations: other (nonverbal) History of Present Illness ED Provider: AMAURI HPI narrative: 53 yo male nonverbal autism, GERD, cerebral palsy just admitted here for gait instability without specific finding or cause who comes from nursing home with c/o unexplained bruises on R thigh, back of R knee, L buttocks, sacrum and L rib area. No falls reported as the patient is now a 1:1 so he is never alone at the house so he could not have fallen. No reported abuse per staff and staff member notes they even filed due to the bruises just to be safe. He has no bleeding anywhere else. patient went to PCP on and no bruising was present that night they noted it. MD complaint: unexplained bruising R leg pain Location: chest, back, right and lower extremity Radiation: non-radiation Severity: mild Relieving factors: none Exacerbating factors: none Associated symptoms: denies other symptoms Treatments prior to arrival: none Related Data Home Medications ?Medication ?Instructions ?Recorded ?Confirmed acetaminophen 325 mg tablet 650 mg PO Q6H PRN pain or temp 08/06/23 09/23/23 aspirin 81 mg tablet,delayed 81 mg PO DAILY 08/06/23 09/23/23 release bacitracin zinc 500 unit/gram 1 appl topical DAILY PRN penile 08/06/23 09/23/23 topical ointment lesions or abrasions betamethasone dipropionate 0.05 % 1 appl topical BID PRN rash on 08/06/23 09/23/23 topical cream back or abdomen carbamide peroxide 6.5 % ear drops 3 drp otic (ears) MOWEFR 08/06/23 09/23/23 (Debrox) cholecalciferol (vitamin D3) 25 25 mcg PO DAILY 08/06/23 09/23/23 mcg (1,000 unit) tablet citalopram 10 mg tablet 20 mg PO DAILY 08/06/23 09/23/23 docusate sodium 100 mg capsule 100 mg PO BID 08/06/23 09/23/23 fluoride (sodium) 1.1 % dental 1 appl dental BID 08/06/23 09/23/23 cream (SF 5000 Plus) lactase 3,000 unit tablet (Lactaid) 3,000 unit PO BID PRN dairy 08/06/23 09/23/23 intolerance loratadine 10 mg tablet 10 mg PO DAILY 08/06/23 09/23/23 magnesium hydroxide 400 mg/5 mL 2,400 mg PO Q72H PRN Constipation, 08/06/23 09/23/23 oral suspension (Milk of Magnesia) if no BM in 3 days multivitamin 1 tab PO DAILY 08/06/23 09/23/23 risperidone 0.5 mg tablet 0.5 mg PO DAILY 08/06/23 09/23/23 risperidone 1 mg tablet 1 mg PO BEDTIME 08/06/23 09/23/23 benzoyl peroxide 5 % topical gel 1 appl topical BID 09/23/23 09/23/23 bisacodyl 10 mg rectal suppository 10 mg CO ONCE PRN constipation; if 09/23/23 09/23/23 (OneLAX Bisacodyl) MOM doesnt work clindamycin phosphate 1 % topical 1 appl topical BID PRN Groin Cyst 09/23/23 09/23/23 gel famotidine 20 mg tablet 20 mg PO BID 09/23/23 09/23/23 guaifenesin 200 mg/5 mL oral liquid 400 mg PO QID PRN Cough 09/23/23 09/23/23 mineral oil-isopropyl myristat 1 appl topical BID 09/23/23 09/23/23 lotion polyethylene glycol 3350 17 17 g PO BEDTIME 09/23/23 09/23/23 gram/dose oral powder simethicone 80 mg chewable tablet 80 mg PO BID 09/23/23 09/23/23 Allergies Allergy/AdvReac Type Severity Reaction Status Date / Time Benzodiazepines Allergy Unknown UNKNOWN Verified 10/05/23 09:57 [BENZODIAZEPINES] benztropine [BENZTROPINE] Allergy Unknown UNKNOWN Verified 10/05/23 09:57 lorazepam [From ATIVAN] Allergy Unknown UNKNOWN Verified 10/05/23 09:57 tretinoin [From RETIN-A] Allergy Unknown UNKNOWN Verified 10/05/23 09:57 Review of Systems Review of Systems: ROS unable to be obtained due to cognitive impairment PMFSH Past Medical History Attestation statement: The following information was validated with the patient. Source: old records reviewed Medical History Nonverbal Weight disorder Gingivitis Eczema Dysphagia Constipation MR (mitral regurgitation) Mitral valve prolapse Vitamin D deficiency Tachycardia Acne Impulse control disorder Anxiety Cerebral palsy Autism History of pica Social History Social History Household Members: Caregiver and Other Household Members Other:: pt lives in nursing home Housing: Other Housing Other:: long term Unable to assess alcohol history related to: Unable to respond Alcohol intake: never Patient Tobacco Use Status: Never used Tobacco Smoked in Last 30 Days: No Second Hand Smoke Exposure: No Use of substances other than those prescribed or required for medical reasons: No Advance Directives: Yes Advance Directives on File: Yes Advance Directives Date on File: 10/05/23 Do you have a plan to hurt others: No Plan service: No Physical Exam ED Vital Signs: Vital Signs - 24 hr 10/05/23 09:47 10/05/23 11:57 Temperature 97.2 F 97.2 F Pulse Rate 68 59 Respiratory Rate 20 16 Blood Pressure 94/41 L 92/56 L Pulse Oximetry 100 100 Oxygen Delivery Method Room Air Room Air BMI result Body Mass Index 19.8 Appearance: At his baseline No acute distress. Eyes: Pupils equal, round and reactive to light. ENT: Pharynx normal. Neck: Normal inspection. Neck supple. CVS: Normal heart rate and rhythm. Pulses normal. Chest: bruise and abrasion L ribs Respiratory: No respiratory distress. Breath sounds normal. Abdomen: Soft and nontender. Back: sacrum bruise noted old and yellow buttocks L purple bruise Skin: Skin warm and dry. Normal skin color. Normal skin turgor. Extremities: bruising in various stages on R thigh lateral, behind knee Neuro: Oriented X 3. No motor deficit. No sensory deficit. Course Course Course Narrative: confirmed with case management that we do not need to file as the nursing home already did Medications Administered Discontinued Medications Generic Name Dose Route Start Last Admin Trade Name Freq PRN Reason Stop Dose Admin Diazepam 10 mg 10/05/23 10:09 10/05/23 10:22 Diazepam 5 Mg Tablet PO 10/05/23 10:10 10 mg ONCE ONE Administration Medical Decision Making Medical Decision Making MDM Narrative: 53 yo male nonverbal autism, GERD, cerebral palsy here with unexplained bruising on extremities and trunk at this time labs, xrays ordered will likely notify CM. No head trauma seen Differential Diagnosis Differential Diagnoses: The differential diagnosis associated with the presentation includes trauma contusion thrombocytopenia Admission/Observation Consideration of admission/observation: Escalation of care including admission/observation considered no acute findings stable for DC Lab Data [facility] Lab Attestation statement: I reviewed the patient's lab results. 10/05/23 11:10 10/05/23 11:10 Labs: Lab Results 10/05/23 Range/Units 11:10 WBC 5.4 (4.8-10.8) X10*3/uL RBC 3.86 L (4.60-5.80) X10*6/uL Hgb 12.6 L (14.0-18.0) g/dl Hct 36.4 L (42.0-52.0) % MCV 94.3 (80.0-98.0) fL MCH 32.6 (27.0-33.0) pg MCHC 34.6 (31.0-36.0) g/dl RDW 12.4 (11.0-16.0) % Plt Count 255 (160-400) X10*3/uL MPV 9.2 L (9.4-12.4) fL Immature Gran % (Auto) 0.2 (0.0-0.4) % Neut % (Auto) 65.6 (45-73) % Lymph % (Auto) 19.1 L (20-40) % [place] % (Auto) 12.6 H (2-11) % Eos % (Auto) 1.9 (0-4) % Baso % (Auto) 0.6 (0-2) % Lymph # (Auto) 1.0 L (1.2-4.9) X10*3/uL [place] # (Auto) 0.7 (0.1-1.2) X10*3/uL Eos # (Auto) 0.1 (0.0-0.4) X10*3/uL Baso # (Auto) 0.0 (0.0-0.2) X10*3/uL Abs Immat Gran (auto) 0.01 (0.00-0.03) X10*3/uL Absolute Neuts (auto) 3.6 (2.0-8.3) x10*3/uL Absolute Nucleated RBC 0.000 (0.0-0.012) X10*3/uL Nucleated RBC % (auto) 0.0 (0.0-0.2) /100WBC PT 12.5 (11.1-13.3) SEC INR 1.0 (0.9-1.1) Sodium 138 (135-145) mmol/L Potassium 3.9 (3.3-5.1) mmol/L Chloride 104 (96-108) mmol/L Carbon Dioxide 30 H (22-29) mmol/L Anion Gap 8 L (12-20) BUN 22 H (9-16) mg/dL Creatinine 0.70 (0.5-1.4) mg/dL Estim Creat Clear Calc 84.1 Estimated GFR > 60 Random Glucose 94 (60-115) mg/dL Calcium 9.3 D (8.4-10.2) mg/dL Independent Interpretation I performed an independent interpretation of an: Plain X-Ray (no fracture) Radiology Impression Discussion of test interpretation with radiology: I have reviewed the radiologist's reading. Independent Historian Clinical information obtained from an independent historian. History obtained from or confirmed by: EMS and Other (caregiver) External Record Review External record reviewed: Inpatient record Discharge Plan Discharge Clinical Impression: Abnormal bruising Patient Disposition: Home, Self-Care Instructions: Ecchymosis (ED) Additional Instructions: xray of pelvis, ribs, right knee no acute fracture normal platelets slight anemia but no significant drop would repeat CBC in 2 days - hemoglobin 12.6 today follow up with primary care doctor Prescriptions: No Action citalopram 10 mg tablet 20 mg PO DAILY docusate sodium 100 mg capsule 100 mg PO BID loratadine 10 mg tablet 10 mg PO DAILY risperidone 0.5 mg tablet 0.5 mg PO DAILY cholecalciferol (vitamin D3) 25 mcg (1,000 unit) tablet 25 mcg PO DAILY risperidone 1 mg tablet 1 mg PO BEDTIME multivitamin Tablet 1 tab PO DAILY aspirin 81 mg Tablet,Delayed Release (Dr/Ec) 81 mg PO DAILY Debrox 6.5 % Drops 3 drp OTIC (EARS) MOWEFR fluoride (sodium) [SF 5000 Plus] 1.1 % Cream 1 appl DENTAL BID acetaminophen 325 mg tablet 650 mg PO Q6H PRN (Reason: pain or temp) bacitracin zinc 500 unit/gram Ointment 1 appl TOPICAL DAILY PRN (Reason: penile lesions or abrasions) magnesium hydroxide [Milk of Magnesia] 400 mg/5 mL Suspension 2,400 mg PO Q72H PRN (Reason: Constipation, if no BM in 3 days) lactase [Lactaid] 3,000 unit Tablet 3,000 unit PO BID PRN (Reason: dairy intolerance) Rx Instructions: administer with meals and/or snacks betamethasone dipropionate 0.05 % Cream 1 appl TOPICAL BID PRN (Reason: rash on back or abdomen) Rx Instructions: apply for 2 weeks prn, contact md if not resolved benzoyl peroxide 5 % Gel 1 appl TOPICAL BID Patient Comments: Apply to face acne, cyst mixed with clindamycin clindamycin phosphate 1 % gel 1 appl topical BID PRN (Reason: Groin Cyst) Rx Instructions: apply to groin cysts, also mixed with benzoyl peroxide and ply to face acne bisacodyl [OneLAX Bisacodyl] 10 mg suppository 10 mg CO ONCE PRN (Reason: constipation; if MOM doesnt work) polyethylene glycol 3350 17 gram/dose powder 17 g PO BEDTIME Rx Instructions: Give one capful in 4-8oz of fluid by mouth daily in the pm simethicone 80 mg tablet,chewable 80 mg PO BID mineral oil-isopropyl myristat Lotion 1 appl TOPICAL BID Rx Instructions: apply a thin film to dry areas of skin guaifenesin 200 mg/5 mL Liquid 400 mg PO QID PRN (Reason: Cough) famotidine 20 mg tablet 20 mg PO BID Print Language: Chinese
[2023-10-05] MEDS: diazePAM 5 MG TABLET 10 MG PO (10:22)
[2023-10-05 11:13] LABS: MANUAL DIFF FLAG NO
[2023-10-05 11:16] LABS: Basophils Percent Auto 0.6 % (0-2); Eosinophils Absolute Auto 0.1 X10*3/uL (0.0-0.4); Eosinophils Percent Auto 1.9 % (0-4); Hematocrit 36.4 % (42.0-52.0); Hemoglobin 12.6 g/dl (14.0-18.0); Imm Gran Abs Auto 0.01 X10*3/uL (0.00-0.03); Imm Gran Pct Auto 0.2 % (0.0-0.4); Lymphocytes Percent Auto 19.1 % (20-40); Mean Corpuscular HGB Conc 34.6 g/dl (31.0-36.0); Mean Corpuscular Hemoglobin 32.6 pg (27.0-33.0); Mean Corpuscular Volume 94.3 fL (80.0-98.0); Mean Platelet Volume 9.2 fL (9.4-12.4); Monocytes Absolute Auto 0.7 X10*3/uL (0.1-1.2); Monocytes Percent Auto 12.6 % (2-11); Neutrophils Absolute Auto 3.6 x10*3/uL (2.0-8.3); Neutrophils Percent Auto 65.6 % (45-73); Platelet Count 255 X10*3/uL (160-400); Red Blood Count 3.86 X10*6/uL (4.60-5.80); Red Cell Distribution Width 12.4 % (11.0-16.0); White Blood Count 5.4 X10*3/uL (4.8-10.8)
[2023-10-05 11:21] LABS: Prothrombin Time 12.5 SEC (11.1-13.3)
[2023-10-05 11:34] LABS: Anion Gap 8 (12-20); Blood Urea Nitrogen 22 mg/dL (9-16); Calcium 9.3 mg/dL (8.4-10.2); Carbon Dioxide 30 mmol/L (22-29); Chloride 104 mmol/L (96-108); Creatinine Clr Calc Pharmacy 84.1; Estimated Glomerular Filt Rate > 60; Glucose Random 94 mg/dL (60-115); Potassium 3.9 mmol/L (3.3-5.1); Sodium 138 mmol/L (135-145)
--- NOTE | 2023-10-05 11:43 | PC.NURSE ---
Patient calmer after medication administration, currently resting on stretcher with eyes closed, breathing even and unlabored. Portable X-ray done at bedside. Caregiver at bedside with patient.
[2023-10-05 11:57] VITALS: BP 92/56; PULSE 59; RESP 16; TEMP 36.2; O2SAT 100
[2023-10-05 13:28] VITALS: BP 95/62; PULSE 58; RESP 16; TEMP 36.2; O2SAT 100
== END 2023-10-05 13:30 | disposition home or self-care (01) ==
PROVIDERS: Emergency Provider Emergency Medicine; PCP Internal Medicine
DX: S70.11XA Contusion of right thigh, initial encounter (principal); S80.12XA Contusion of left lower leg, initial encounter; S30.0XXA Contusion of lower back and pelvis, initial encounter; S80.11XA Contusion of right lower leg, initial encounter; R23.3 Spontaneous ecchymoses; R07.81 Pleurodynia; M25.552 Pain in left hip; M25.551 Pain in right hip; M25.561 Pain in right knee; X58.XXXA Exposure to other specified factors, initial encounter; Y93.9 Activity, unspecified; Y92.9 Unspecified place or not applicable; Y99.8 Other external cause status; Z79.899 Other long term (current) drug therapy
CPT/HCPCS: 36415; 71045; 73502; 73560; 80048; 85025; 85610; 99283; 99284

== ENCOUNTER 2023-10-14 15:32 | Emergency (ER) | payer OTHER, SELFPAY ==
[2023-10-14] VITALS (9 sets, daily range): BP systolic 93–124; BP diastolic 35–77; PULSE 50–80; RESP 10–17; TEMP 36.2–36.9; O2SAT 95–100; BMI 19.8
--- NOTE | ~2023-10-14 | CT_ITS ---
EXAMINATION: CT HEAD WITHOUT CONTRAST CT CERVICAL SPINE WITHOUT CONTRAST CLINICAL INFORMATION: Fall. Head injury. Nonverbal patient. COMPARISON: CTA head and neck from 09/23/2023. TECHNIQUE: Contiguous axial imaging was performed from the skull base to vertex without intravenous administration of contrast. Contiguous axial imaging was performed from the upper chest through the skull base without intravenous administration of contrast. Coronal and sagittal reformats were obtained at the acquisition workstation. This CT examination was performed using dose optimization techniques as appropriate, variously including the following: *Automated exposure control. *Adjustment of mA and/or kV according to patient size (this includes techniques or standardized protocols for targeted exams where dose is matched to indication/reason for exam; i.e. extremities or head). *Use of iterative reconstruction technique. DLP: 896 mGy-cm FINDINGS: Head: There is no evidence of acute intracranial hemorrhage or edematous territorial infarction. Kahn-white matter differentiation is preserved. There is no abnormal attenuation within the brain parenchyma. Proportional prominence of the ventricles and sulcal spaces without evidence of obstructive hydrocephalus. No abnormal mass effect or midline shift. No extra-axial fluid collections. Small subgaleal hematoma along the left aspect of the occipital bone, measuring up to 0.2 cm in depth. No associated acute osseous abnormalities. Mild mucosal thickening of the paranasal sinuses. The mastoid air cells and middle ear cavities are clear. Cervical Spine: The atlantooccipital and atlantoaxial articulations remain well aligned. Straightening of the normal cervical lordosis. Otherwise, there is anatomic alignment of the vertebral bodies and posterior elements. No evidence of acute fracture or subluxation. The vertebral body heights are maintained. Moderate degenerative disc disease from C2 to C4. Mild degenerative disc disease from C4-C6. Facet and uncovertebral joint arthropathy leads to mild osseous encroachment on the neural foramina from C2-C6. There is no prevertebral soft tissue swelling. The thyroid gland and remaining cervical soft tissues are within normal limits. Patulous expansion of the visualized thoracic esophagus. The lung apices demonstrate no abnormalities. CT/CT cervical spine wo IV con IMPRESSION: 1. No evidence of acute intracranial hemorrhage or edematous territorial infarction. 2. No evidence of acute fracture or traumatic subluxation of the cervical spine. Mild to moderate multilevel degenerative spondyloarthropathy of the cervical spine. 3. Small left occipital scalp hematoma. No associated osseous abnormalities. 4. Chronic patulous expansion of the visualized thoracic esophagus.
--- NOTE | 2023-10-14 16:17 | PC.NURSE ---
pt does not like to be touched, from retirement in [place] presented with retirement nurse. . had a witnessed fall where he fell backwards striking his head on a TV stand. lac noted to posterior skull, difficulty visualizing as pt does not want to be touched. pt non-verbal at baseline. incontinent of stool but at this time pt not allowing this RN and retirement RN to clean him, able to get BP but pt not allowing or pulse-ox to be taken, pts RR even and unlabored, skin pink, warm and dry.
--- NOTE | 2023-10-14 16:28 | ECG_ITS ---
Test Reason : FALL Blood Pressure : / mmHG Vent. Rate : 066 BPM Atrial Rate : 066 BPM P-R Int : 132 ms QRS Dur : 106 ms QT Int : 428 ms P-R-T Axes : 059 046 032 degrees QTc Int : 448 ms Normal sinus rhythm Low voltage QRS Borderline ECG When compared with ECG of 05-AUG-2023 23:43, No significant change was found Referred By: Linda Gusman Electronically Signed By:CAYDEN TA MD
[2023-10-14] MEDS: Midazolam HCl/PF 2 MG/2 ML VIAL IM (16:39)
[2023-10-14] MEDS: diphenhydrAMINE HCL 50 MG/ML VIAL IM (16:40)
[2023-10-14] MEDS: Haloperidol Lactate 5 MG/ML VIAL IM ×2 (16:40→18:06)
--- NOTE | 2023-10-14 16:46 | ED_ITS ---
HPI - Fall General Chief Complaint: Fall Stated Complaint: FALL AT NURSING HOME Time Seen by Provider: 10/14/23 16:01 Source: EMS and other (Staff) Mode of arrival: EMS Limitations: physical limitation History of Present Illness HPI Narrative: Patient is a 53-year-old male with past medical history of autism, cerebral palsy, developmental delay, systolic dysfunction with mitral valve prolapse, mood disorder, GERD who presents to the emergency department with [facility] staff via EMS for evaluation after a fall. Per staff's account he was getting up from the couch when suddenly he stumbled towards the side striking his head onto the edge of a TV stand. There was no reported loss of consciousness. Staff reports that he has had multiple visits to this emergency department over the past month due to multiple falls and unsteady gait, her staff he has been seen by Neurology, they initially suspected it may be due to a stroke but was later advised that this was likely progression of his cerebral palsy. 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 They deny any other recent concerning symptoms, signs of an infection, or additional concerns. They deny him being on any anticoagulants. They state he was previously taking a baby aspirin but this was discontinued by his primary care provider. Related Data Home Medications ?Medication ?Instructions ?Recorded ?Confirmed acetaminophen 325 mg tablet 650 mg PO Q6H PRN pain or temp 08/06/23 09/23/23 aspirin 81 mg tablet,delayed 81 mg PO DAILY 08/06/23 09/23/23 release bacitracin zinc 500 unit/gram 1 appl topical DAILY PRN penile 08/06/23 09/23/23 topical ointment lesions or abrasions betamethasone dipropionate 0.05 % 1 appl topical BID PRN rash on 08/06/23 09/23/23 topical cream back or abdomen carbamide peroxide 6.5 % ear drops 3 drp otic (ears) MOWEFR 08/06/23 09/23/23 (Debrox) cholecalciferol (vitamin D3) 25 25 mcg PO DAILY 08/06/23 09/23/23 mcg (1,000 unit) tablet citalopram 10 mg tablet 20 mg PO DAILY 08/06/23 09/23/23 docusate sodium 100 mg capsule 100 mg PO BID 08/06/23 09/23/23 fluoride (sodium) 1.1 % dental 1 appl dental BID 08/06/23 09/23/23 cream (SF 5000 Plus) lactase 3,000 unit tablet (Lactaid) 3,000 unit PO BID PRN dairy 08/06/23 09/23/23 intolerance loratadine 10 mg tablet 10 mg PO DAILY 08/06/23 09/23/23 magnesium hydroxide 400 mg/5 mL 2,400 mg PO Q72H PRN Constipation, 08/06/23 09/23/23 oral suspension (Milk of Magnesia) if no BM in 3 days multivitamin 1 tab PO DAILY 08/06/23 09/23/23 risperidone 0.5 mg tablet 0.5 mg PO DAILY 08/06/23 09/23/23 risperidone 1 mg tablet 1 mg PO BEDTIME 08/06/23 09/23/23 benzoyl peroxide 5 % topical gel 1 appl topical BID 09/23/23 09/23/23 bisacodyl 10 mg rectal suppository 10 mg OH ONCE PRN constipation; if 09/23/23 09/23/23 (OneLAX Bisacodyl) MOM doesnt work clindamycin phosphate 1 % topical 1 appl topical BID PRN Groin Cyst 09/23/23 09/23/23 gel famotidine 20 mg tablet 20 mg PO BID 09/23/23 09/23/23 guaifenesin 200 mg/5 mL oral liquid 400 mg PO QID PRN Cough 09/23/23 09/23/23 mineral oil-isopropyl myristat 1 appl topical BID 09/23/23 09/23/23 lotion polyethylene glycol 3350 17 17 g PO BEDTIME 09/23/23 09/23/23 gram/dose oral powder simethicone 80 mg chewable tablet 80 mg PO BID 09/23/23 09/23/23 Allergies Allergy/AdvReac Type Severity Reaction Status Date / Time Benzodiazepines Allergy Unknown UNKNOWN Verified 10/14/23 15:47 [BENZODIAZEPINES] benztropine [BENZTROPINE] Allergy Unknown UNKNOWN Verified 10/14/23 15:47 lorazepam [From ATIVAN] Allergy Unknown UNKNOWN Verified 10/14/23 15:47 tretinoin [From RETIN-A] Allergy Unknown UNKNOWN Verified 10/14/23 15:47 Review of Systems 2 Review of Systems: Yes Unobtainable due to mental condition [facility]LY [facility] Past Medical History Attestation statement: The following information was validated with the patient. Source: old records reviewed Medical History Nonverbal Weight disorder Gingivitis Eczema Dysphagia Constipation MR (mitral regurgitation) Mitral valve prolapse Vitamin D deficiency Tachycardia Acne Impulse control disorder Anxiety Cerebral palsy Autism History of pica Social History Social History Household Members: Caregiver and Other Household Members Other:: pt lives in [facility] Housing: Other Housing Other:: longterm Unable to assess alcohol history related to: Unable to respond Alcohol intake: never Patient Tobacco Use Status: Never used Tobacco Second Hand Smoke Exposure: No Advance Directives: Yes Advance Directives on File: Yes Advance Directives Date on File: 10/05/23 service: No Physical Exam 2 Vital Signs: Vital Signs: Last Vital Signs Temp 97.2 F 10/14/23 19:22 Pulse 50 10/14/23 21:37 Resp 10 L 10/14/23 21:37 BP 94/58 L 10/14/23 21:37 Pulse Ox 100 10/14/23 21:37 O2 Del Method Room Air 10/14/23 21:37 BMI result Body Mass Index 19.8 Appearance: Nonverbal. Well-appearing. No acute distress.? Head: Normocephalic, 1 cm laceration to the left occiput Eyes: Pupils equal, round and reactive to light.? Neck: Normal inspection.? No JVD. ? CVS: Heart sounds normal. Normal heart rate and rhythm.? Pulses normal.?? Respiratory: No respiratory distress.? Lung sounds clear to auscultation bilaterally?? Abdomen: Soft and seemingly non-tender. Normoactive bowel sounds. No pulsatile mass.?? Skin: Skin warm and dry.? Normal skin color.? ?? Extremities: No lower extremity edema.? Neuro: Moves all extremities spontaneously. Course Reevaluation(s) Reevaluation #1: Spoke with patient's healthcare proxy; mother Rafaela, advised of need for intramuscular medications for sedation for workup in the emergency department, discussed with her potential risks and complications associated with use of medications she verbalizes understanding and she is agreeable to this plan of care. Reevaluation #2: Patient ultimately required ketamine IM for CT scan to be obtained no acute complications auditory distress. CT revealing no acute intracranial abnormalities, no fracture subluxation, left occipital scalp hematoma with laceration which was irrigated extensively with normal saline, repaired with 2 melissa Medications Administered Discontinued Medications Generic Name Dose Route Start Last Admin Trade Name Freq PRN Reason Stop Dose Admin Diphenhydramine HCl 50 mg 10/14/23 16:26 10/14/23 16:40 Diphenhydramine Hcl 50 Mg/Ml Vial IM 10/14/23 16:27 50 mg ONCE ONE Administration Haloperidol Lactate 5 mg 10/14/23 16:26 10/14/23 16:40 Haloperidol Lactate 5 Mg/Ml Vial IM 10/14/23 16:27 5 mg STAT STA Administration Haloperidol Lactate 5 mg 10/14/23 17:34 10/14/23 18:06 Haloperidol Lactate 5 Mg/Ml Vial IM 10/14/23 17:35 5 mg STAT STA Administration Ketamine HCl 190.508 mg 10/14/23 18:12 10/14/23 19:30 Ketamine Hcl 500 Mg/5 Ml Vial 4 mg/kg (190.508 mg) 10/14/23 18:13 190.508 mg IM Administration ONCE ONE Midazolam HCl 2 mg 10/14/23 16:27 10/14/23 16:39 Midazolam Hcl/Pf 2 Mg/2 Ml Vial IM 10/14/23 16:28 2 mg ONCE ONE Administration Procedures Laceration Laceration 1: Site: scalp Side (If applicable): left Size (cm): 1 Description: linear Depth: simple, single layer Pre-repair: wound explored, irrigated extensively and deep structures intact Size (cm): other (Two melissa) Medical Decision Making Medical Decision Making MDM Narrative: Patient is a 53-year-old male with past medical history of autism, cerebral palsy, developmental delay, systolic dysfunction with mitral valve prolapse, mood disorder, GERD who presents emergency department for evaluation after witnessed fall with head strike but no reported loss consciousness. He is unable to participate in a neurological examination, he has not on anticoagulation, however I feel that CT is warranted to exclude ICH, SDH, fracture, subluxation. Unfortunately, is not amenable to tactile interaction from staff, he will require sedation for CT to be obtained. I spoke with staff at bedside and they are agreeable with this process. Will also plan to obtain serum labs, urinalysis to exclude alternative etiologies for fall aside from mechanical nature or secondary to his recently progressive gait instability is. Patient to receive Haldol and Versed IM. Differential Diagnosis Differential Diagnoses: The differential diagnosis associated with the presentation includes (In addition to the above-mentioned Unsteady gait, mechanical fall, urinary tract infection, electrolyte abnormality, laceration of the scalp) Admission/Observation Consideration of admission/observation: Escalation of care including admission/observation considered Lab Data 10/14/23 17:55 10/14/23 17:55 Labs: Lab Results 10/14/23 10/14/23 10/14/23 Range/Units 17:21 17:55 19:47 WBC 5.3 (4.8-10.8) X10*3/uL RBC 4.16 L (4.60-5.80) X10*6/uL Hgb 13.5 L (14.0-18.0) g/dl Hct 39.1 L (42.0-52.0) % MCV 94.0 (80.0-98.0) fL MCH 32.5 (27.0-33.0) pg MCHC 34.5 (31.0-36.0) g/dl RDW 12.6 (11.0-16.0) % Plt Count 293 (160-400) X10*3/uL MPV 8.7 L (9.4-12.4) fL Immature Gran % (Auto) 0.2 (0.0-0.4) % Neut % (Auto) 65.2 (45-73) % Lymph % (Auto) 19.8 L (20-40) % [place]y % (Auto) 11.9 H (2-11) % Eos % (Auto) 2.1 (0-4) % Baso % (Auto) 0.8 (0-2) % Lymph # (Auto) 1.1 L (1.2-4.9) X10*3/uL [place] # (Auto) 0.6 (0.1-1.2) X10*3/uL Eos # (Auto) 0.1 (0.0-0.4) X10*3/uL Baso # (Auto) 0.0 (0.0-0.2) X10*3/uL Abs Immat Gran (auto) 0.01 (0.00-0.03) X10*3/uL Absolute Neuts (auto) 3.5 (2.0-8.3) x10*3/uL Absolute Nucleated RBC 0.000 (0.0-0.012) X10*3/uL Nucleated RBC % (auto) 0.0 (0.0-0.2) /100WBC PT 12.5 (11.1-13.3) SEC INR 1.0 (0.9-1.1) Sodium 140 (135-145) mmol/L Potassium 4.0 (3.3-5.1) mmol/L Chloride 103 (96-108) mmol/L Carbon Dioxide 27 (22-29) mmol/L Anion Gap 14 (12-20) BUN 21 H (9-16) mg/dL Creatinine 0.77 (0.5-1.4) mg/dL Estim Creat Clear Calc 76.4 Estimated GFR > 60 Random Glucose 84 (60-115) mg/dL Calcium 9.3 (8.4-10.2) mg/dL Magnesium 2.0 (1.6-2.6) mg/dL Total Bilirubin 0.6 (0.0-1.0) mg/dL AST 27 (5-37) U/L ALT 18 (0-40) U/L Alkaline Phosphatase 54 (39-117) U/L Total Protein 7.1 (6.5-8.0) g/dL Albumin 4.1 (3.5-5.0) g/dL Urine Color Yellow Urine Appearance Clear Urine pH 6.0 (5.0-9.0) Ur Specific [place] 1.025 (1.005-1.025) Urine Protein Negative (Neg-Trace) mg/dL Urine Glucose (UA) Negative (Negative) mg/dL Urine Ketones 15 (Negative) mg/dL Urine Blood Negative (Negative) Urine Nitrite Negative (Negative) Ur Leukocyte Esterase Negative (Negative) Influenza Type A (PCR) NEGATIVE (Negative) Influenza Type B (PCR) NEGATIVE (Negative) RSV RNA Qual (PCR) NEGATIVE (Negative) SARS-CoV-2 RNA (RT-PCR) NEGATIVE (Negative) Critical Care Time Critical Care Time Critical Care Time: Yes Total Critical Care Time: 35 Attestation: I personally attest to this critical care time spent taking care of the patient exclusive of all other billable procedures was approximately 35 minutes including initial evaluation of patient, ordering tests, intramuscular chemical sedation and re-evaluation, EKG interpretation, medical consultation, documentation, re-evaluation. Discharge Plan Discharge Clinical Impression: Laceration of scalp, Fall Patient Disposition: Home, Self-Care Instructions: Fall Prevention (ED) Additional Instructions: CT imaging of the head and cervical spine in the neck were without acute abnormality today. Blood work was overall normal. Urine was without infection. Testing for COVID-19, flu, and RSV were negative. Two melissa from scalp will need to be removed in 7-10 days, may follow up with primary care provider or return to the emergency department for removal.. Prescriptions: No Action citalopram 10 mg tablet 20 mg PO DAILY docusate sodium 100 mg capsule 100 mg PO BID loratadine 10 mg tablet 10 mg PO DAILY risperidone 0.5 mg tablet 0.5 mg PO DAILY cholecalciferol (vitamin D3) 25 mcg (1,000 unit) tablet 25 mcg PO DAILY risperidone 1 mg tablet 1 mg PO BEDTIME multivitamin Tablet 1 tab PO DAILY aspirin 81 mg Tablet,Delayed Release (Dr/Ec) 81 mg PO DAILY Debrox 6.5 % Drops 3 drp OTIC (EARS) MOWEFR fluoride (sodium) [SF 5000 Plus] 1.1 % Cream 1 appl DENTAL BID acetaminophen 325 mg tablet 650 mg PO Q6H PRN (Reason: pain or temp) bacitracin zinc 500 unit/gram Ointment 1 appl TOPICAL DAILY PRN (Reason: penile lesions or abrasions) magnesium hydroxide [Milk of Magnesia] 400 mg/5 mL Suspension 2,400 mg PO Q72H PRN (Reason: Constipation, if no BM in 3 days) lactase [Lactaid] 3,000 unit Tablet 3,000 unit PO BID PRN (Reason: dairy intolerance) Rx Instructions: administer with meals and/or snacks betamethasone dipropionate 0.05 % Cream 1 appl TOPICAL BID PRN (Reason: rash on back or abdomen) Rx Instructions: apply for 2 weeks prn, contact md if not resolved benzoyl peroxide 5 % Gel 1 appl TOPICAL BID Patient Comments: Apply to face acne, cyst mixed with clindamycin clindamycin phosphate 1 % gel 1 appl topical BID PRN (Reason: Groin Cyst) Rx Instructions: apply to groin cysts, also mixed with benzoyl peroxide and ply to face acne bisacodyl [OneLAX Bisacodyl] 10 mg suppository 10 mg OH ONCE PRN (Reason: constipation; if MOM doesnt work) polyethylene glycol 3350 17 gram/dose powder 17 g PO BEDTIME Rx Instructions: Give one capful in 4-8oz of fluid by mouth daily in the pm simethicone 80 mg tablet,chewable 80 mg PO BID mineral oil-isopropyl myristat Lotion 1 appl TOPICAL BID Rx Instructions: apply a thin film to dry areas of skin guaifenesin 200 mg/5 mL Liquid 400 mg PO QID PRN (Reason: Cough) famotidine 20 mg tablet 20 mg PO BID Referrals: Jason Mason MD [Primary Care Provider] - Print Language: Albanian
[2023-10-14 17:31] LABS: Prothrombin Time 12.5 SEC (11.1-13.3)
[2023-10-14 17:59] LABS: MANUAL DIFF FLAG NO
[2023-10-14 18:01] LABS: Basophils Percent Auto 0.8 % (0-2); Eosinophils Absolute Auto 0.1 X10*3/uL (0.0-0.4); Eosinophils Percent Auto 2.1 % (0-4); Hematocrit 39.1 % (42.0-52.0); Hemoglobin 13.5 g/dl (14.0-18.0); Imm Gran Abs Auto 0.01 X10*3/uL (0.00-0.03); Imm Gran Pct Auto 0.2 % (0.0-0.4); Lymphocytes Absolute Auto 1.1 X10*3/uL (1.2-4.9); Lymphocytes Percent Auto 19.8 % (20-40); Mean Corpuscular HGB Conc 34.5 g/dl (31.0-36.0); Mean Corpuscular Hemoglobin 32.5 pg (27.0-33.0); Mean Platelet Volume 8.7 fL (9.4-12.4); Monocytes Absolute Auto 0.6 X10*3/uL (0.1-1.2); Monocytes Percent Auto 11.9 % (2-11); Neutrophils Absolute Auto 3.5 x10*3/uL (2.0-8.3); Neutrophils Percent Auto 65.2 % (45-73); Platelet Count 293 X10*3/uL (160-400); Red Blood Count 4.16 X10*6/uL (4.60-5.80); Red Cell Distribution Width 12.6 % (11.0-16.0); White Blood Count 5.3 X10*3/uL (4.8-10.8)
--- NOTE | 2023-10-14 18:07 | PC.NURSE ---
pt unable to remain still for CT scan. Demarco MAIL ORDER BILLER made aware, VO for IM Haldol 5mg. administered in CT at 1740. no positive effect after several minutes. pt pulled from CT and brought back to rm 17
[2023-10-14 18:08] LABS: Influenza A PCR NEGATIVE (Negative); Influenza B PCR NEGATIVE (Negative); Resp Syncy Virus RNA Qual PCR NEGATIVE (Negative); SARS COV2 PCR INHOUSE NEGATIVE (Negative)
[2023-10-14 18:22] LABS: Alanine Aminotransferase 18 U/L (0-40); Albumin Level 4.1 g/dL (3.5-5.0); Alkaline Phosphatase 54 U/L (39-117); Anion Gap 14 (12-20); Aspartate Amino Transferase 27 U/L (5-37); Bilirubin Total 0.6 mg/dL (0.0-1.0); Blood Urea Nitrogen 21 mg/dL (9-16); Calcium 9.3 mg/dL (8.4-10.2); Carbon Dioxide 27 mmol/L (22-29); Chloride 103 mmol/L (96-108); Creatinine Clr Calc Pharmacy 76.4; Estimated Glomerular Filt Rate > 60; Glucose Random 84 mg/dL (60-115); Sodium 140 mmol/L (135-145); Total Protein 7.1 g/dL (6.5-8.0)
[2023-10-14] MEDS: Ketamine HCl 500 MG/5 ML VIAL 190.508 MG IM (19:30)
--- NOTE | 2023-10-14 19:42 | PC.NURSE ---
pt medicated per MAR for CT scan. pt tolerated well
[2023-10-14 19:54] LABS: Appearance Urine Clear; Color Urine Yellow; Glucose Urine UA Negative (Negative); Leukocyte Esterase Urine Negative (Negative); Nitrite Urine Negative (Negative); Specific Gravity - Urine 1.025 (1.005-1.025); Urine Blood Negative (Negative); Urine Ketones 15 mg/dL (Negative); Urine Protein Negative (Neg-Trace)
--- NOTE | 2023-10-14 19:59 | PC.NURSE ---
pt resting comfortably at this time. in CT
== END 2023-10-14 22:40 | disposition home or self-care (01) ==
PROVIDERS: Nurse Practitioner Family; Emergency Provider Internal Medicine; PCP Internal Medicine
DX: S01.01XA Laceration without foreign body of scalp, initial encounter (principal); W01.190A Fall on same level from slipping, tripping and stumbling with subsequent striking against furniture, initial encounter; Z91.81 History of falling; Y93.9 Activity, unspecified; Y92.9 Unspecified place or not applicable; Y99.9 Unspecified external cause status; G80.9 Cerebral palsy, unspecified; I34.1 Nonrheumatic mitral (valve) prolapse; K21.9 Gastro-esophageal reflux disease without esophagitis
CPT/HCPCS: 0241U; 70450; 72125; 80053; 81003; 83735; 85025; 85610; 93005; 96372; 99284; J1200; J1630; J2250

== ENCOUNTER → 2023-10-14 16:28 | Outpatient (BNV) | payer OTHER, SELFPAY | PROVIDERS: Emergency Provider Internal Medicine; PCP Internal Medicine; Visit Provider Internal Medicine Cardiovascular Disease | DX: R94.31 Abnormal electrocardiogram [ECG] [EKG] (principal) | CPT/HCPCS: 93010 ==

== ENCOUNTER 2023-10-19 04:42 | Emergency (ER) | payer OTHER, SELFPAY ==
[2023-10-19] VITALS (8 sets, daily range): BP systolic 90–109; BP diastolic 49–88; PULSE 53–87; RESP 15–22; TEMP 35.8–36.6; O2SAT 95–100; BMI 18.1
--- NOTE | 2023-10-19 04:48 | ED.EXTPRO ---
HPI - Extremity Problem General Chief complaint: General Medical Stated complaint: gout flare up Time Seen by Provider: 10/19/23 04:47 Source: EMS and old records reviewed Mode of arrival: EMS Limitations: other (unable to provide history) History of Present Illness ED Provider: AMAURI MARISCAL Narrative: 53 yo male nonverbal autism, GERD, cerebral palsy just admitted here for gait instability and also seen here 10/[address] head s/p laceration repair with 2 melissa who comes in with c/o finding 2 new areas of bruising and concern then for gout flare in both elbows. Again bruises are unknown staff here states they just got back from vacation. The patient cannot offer history. MD Complaint: other Onset (ago): day(s) (1) Location: left, right, upper extremity and elbow Radiation: none Relieving factors: nothing Exacerbating factors: nothing Associated symptoms: denies other symptoms Context: other (recent visits for fall and then unexplained bruising at that time had normal plts and coags) Related Data Home Medications ?Medication ?Instructions ?Recorded ?Confirmed acetaminophen 325 mg tablet 650 mg PO Q6H PRN pain or temp 08/06/23 09/23/23 aspirin 81 mg tablet,delayed 81 mg PO DAILY 08/06/23 09/23/23 release bacitracin zinc 500 unit/gram 1 appl topical DAILY PRN penile 08/06/23 09/23/23 topical ointment lesions or abrasions betamethasone dipropionate 0.05 % 1 appl topical BID PRN rash on 08/06/23 09/23/23 topical cream back or abdomen carbamide peroxide 6.5 % ear drops 3 drp otic (ears) MOWEFR 08/06/23 09/23/23 (Debrox) cholecalciferol (vitamin D3) 25 25 mcg PO DAILY 08/06/23 09/23/23 mcg (1,000 unit) tablet citalopram 10 mg tablet 20 mg PO DAILY 08/06/23 09/23/23 docusate sodium 100 mg capsule 100 mg PO BID 08/06/23 09/23/23 fluoride (sodium) 1.1 % dental 1 appl dental BID 08/06/23 09/23/23 cream (SF 5000 Plus) lactase 3,000 unit tablet (Lactaid) 3,000 unit PO BID PRN dairy 08/06/23 09/23/23 intolerance loratadine 10 mg tablet 10 mg PO DAILY 08/06/23 09/23/23 magnesium hydroxide 400 mg/5 mL 2,400 mg PO Q72H PRN Constipation, 08/06/23 09/23/23 oral suspension (Milk of Magnesia) if no BM in 3 days multivitamin 1 tab PO DAILY 08/06/23 09/23/23 risperidone 0.5 mg tablet 0.5 mg PO DAILY 08/06/23 09/23/23 risperidone 1 mg tablet 1 mg PO BEDTIME 08/06/23 09/23/23 benzoyl peroxide 5 % topical gel 1 appl topical BID 09/23/23 09/23/23 bisacodyl 10 mg rectal suppository 10 mg TN ONCE PRN constipation; if 09/23/23 09/23/23 (OneLAX Bisacodyl) MOM doesnt work clindamycin phosphate 1 % topical 1 appl topical BID PRN Groin Cyst 09/23/23 09/23/23 gel famotidine 20 mg tablet 20 mg PO BID 09/23/23 09/23/23 guaifenesin 200 mg/5 mL oral liquid 400 mg PO QID PRN Cough 09/23/23 09/23/23 mineral oil-isopropyl myristat 1 appl topical BID 09/23/23 09/23/23 lotion polyethylene glycol 3350 17 17 g PO BEDTIME 09/23/23 09/23/23 gram/dose oral powder simethicone 80 mg chewable tablet 80 mg PO BID 09/23/23 09/23/23 Allergies Allergy/AdvReac Type Severity Reaction Status Date / Time Benzodiazepines Allergy Unknown UNKNOWN Verified 10/19/23 04:50 [BENZODIAZEPINES] benztropine [BENZTROPINE] Allergy Unknown UNKNOWN Verified 10/19/23 04:50 lorazepam [From ATIVAN] Allergy Unknown UNKNOWN Verified 10/19/23 04:50 tretinoin [From RETIN-A] Allergy Unknown UNKNOWN Verified 10/19/23 04:50 Review of Systems Review of Systems: ROS unable to be obtained due to cognitive impairment [facility] Past Medical History Source: old records reviewed Medical History Nonverbal Weight disorder Gingivitis Eczema Dysphagia Constipation MR (mitral regurgitation) Mitral valve prolapse Vitamin D deficiency Tachycardia Acne Impulse control disorder Anxiety Cerebral palsy Autism History of pica Social History Social History Household Members: Caregiver and Other Household Members Other:: pt lives in prison Housing: Other Housing Other:: nursing home Unable to assess alcohol history related to: Unable to respond Alcohol intake: never Patient Tobacco Use Status: Never used Tobacco Second Hand Smoke Exposure: No Advance Directives: Yes Advance Directives on File: Yes Advance Directives Date on File: 10/05/23 Do you have a plan to hurt others: No Plan service: No Physical Exam Vital Signs: Vital Signs: Last Vital Signs Temp 97.8 F 10/19/23 05:08 Resp 16 10/19/23 05:08 BMI result Body Mass Index 18.1 Appearance: Alert. nonverbal at his baseline. No acute distress. Eyes: Pupils equal, round and reactive to light. ENT: Pharynx normal. atraumatic Neck: Normal inspection. Neck supple. CVS: Normal heart rate and rhythm. Pulses normal. Respiratory: No respiratory distress. Breath sounds normal. Abdomen: Soft and non-tender. Skin: Skin warm and dry. Normal skin color. Extremities: No lower extremity edema. old appearing bruises of posterior prox forearms R elbow is normal, there is scant redness near L elbow but neither elbow has effusion, warmth or swelling of olecranon see picture below Neuro: at his baseline No motor deficit. No sensory deficit. Course Course Course Narrative: PRN valium to obtain xray ordered takes valium for procedures Reevaluation(s) Reevaluation #1: there is no deformity or effusion to suggest elbow fracture and he is very strong in L arm doubt fracture - held off xrays Reevaluation #2: repeat elbow exam no redness, swelling, I did discuss with staff and now home RN is here about that this is not gout and there are new bruises - they are aware of plan to contact CM Medications Administered Discontinued Medications Generic Name Dose Route Start Last Admin Trade Name Freq PRN Reason Stop Dose Admin Diazepam 10 mg 10/19/23 05:15 10/19/23 06:03 Diazepam 5 Mg Tablet PO 10/19/23 05:16 10 mg ONCE ONE Administration Medical Decision Making Medical Decision Making [facility] Narrative: 53 yo male nonverbal autism, GERD, cerebral palsy just admitted here for gait instability and also seen here 10/13 for fall here again with unexplained bruising at this time no signs of gout in R elbow his L elbow is slightly more red but there is no effusion or swelling of the olecranon I am not sure if the redness is due to us trying to look at him and hold it or EMS - will continue to monitor him at this time will monitor and hold for CM to get involved. Differential Diagnosis Differential Diagnoses: The differential diagnosis associated with the presentation includes bruising, trauma Admission/Observation Consideration of admission/observation: Escalation of care including admission/observation considered physician observation started at 516am pending CM signed out to oncoming provider Independent Historian Clinical information obtained from an independent historian. History obtained from or confirmed by: EMS and Other (staff - staff member when asked again about bruises they state well I don't want to say anything but we all think something. ) External Record Review External record reviewed: Inpatient record Discharge Plan Discharge Clinical Impression: Abnormal bruising Patient Disposition: Still a Patient Instructions: Contusion in Adults (ED) Prescriptions: No Action citalopram 10 mg tablet 20 mg PO DAILY docusate sodium 100 mg capsule 100 mg PO BID loratadine 10 mg tablet 10 mg PO DAILY risperidone 0.5 mg tablet 0.5 mg PO DAILY cholecalciferol (vitamin D3) 25 mcg (1,000 unit) tablet 25 mcg PO DAILY risperidone 1 mg tablet 1 mg PO BEDTIME multivitamin Tablet 1 tab PO DAILY aspirin 81 mg Tablet,Delayed Release (Dr/Ec) 81 mg PO DAILY Debrox 6.5 % Drops 3 drp OTIC (EARS) MOWEFR fluoride (sodium) [SF 5000 Plus] 1.1 % Cream 1 appl DENTAL BID acetaminophen 325 mg tablet 650 mg PO Q6H PRN (Reason: pain or temp) bacitracin zinc 500 unit/gram Ointment 1 appl TOPICAL DAILY PRN (Reason: penile lesions or abrasions) magnesium hydroxide [Milk of Magnesia] 400 mg/5 mL Suspension 2,400 mg PO Q72H PRN (Reason: Constipation, if no BM in 3 days) lactase [Lactaid] 3,000 unit Tablet 3,000 unit PO BID PRN (Reason: dairy intolerance) Rx Instructions: administer with meals and/or snacks betamethasone dipropionate 0.05 % Cream 1 appl TOPICAL BID PRN (Reason: rash on back or abdomen) Rx Instructions: apply for 2 weeks prn, contact md if not resolved benzoyl peroxide 5 % Gel 1 appl TOPICAL BID Patient Comments: Apply to face acne, cyst mixed with clindamycin clindamycin phosphate 1 % gel 1 appl topical BID PRN (Reason: Groin Cyst) Rx Instructions: apply to groin cysts, also mixed with benzoyl peroxide and ply to face acne bisacodyl [OneLAX Bisacodyl] 10 mg suppository 10 mg TN ONCE PRN (Reason: constipation; if MOM doesnt work) polyethylene glycol 3350 17 gram/dose powder 17 g PO BEDTIME Rx Instructions: Give one capful in 4-8oz of fluid by mouth daily in the pm simethicone 80 mg tablet,chewable 80 mg PO BID mineral oil-isopropyl myristat Lotion 1 appl TOPICAL BID Rx Instructions: apply a thin film to dry areas of skin guaifenesin 200 mg/5 mL Liquid 400 mg PO QID PRN (Reason: Cough) famotidine 20 mg tablet 20 mg PO BID Print Language: Ghanaian
--- NOTE | 2023-10-19 05:05 | PC.NURSE ---
Patient refused vital signs
[2023-10-19] MEDS: diazePAM 5 MG TABLET 10 MG PO (06:03)
--- NOTE | 2023-10-19 10:12 | MHC.EDTECH ---
Patient soiled through brief. Bedding changed, patient cleaned up and clean brief from home was put on patient.
--- NOTE | 2023-10-19 15:49 | MHC.EDTECH ---
Patient was incontinent of urine ,care given and bedding change .rattan worker at bedside .
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
--- NOTE | 2023-10-19 18:41 | MHC.EDTECH ---
Patient was fed ate 100 % of meal and drank 360 ml fluids .
== END 2023-10-19 18:48 | disposition home or self-care (01) ==
PROVIDERS: Emergency Provider Emergency Medicine; PCP Internal Medicine
DX: M10.021 Idiopathic gout, right elbow (principal); M10.022 Idiopathic gout, left elbow; Z79.899 Other long term (current) drug therapy
CPT/HCPCS: 99283; 99284

== ENCOUNTER 2023-12-23 06:01 | Emergency (ER) | payer OTHER, SELFPAY ==
[2023-12-23] VITALS (8 sets, daily range): BP systolic 94–120; BP diastolic 54–68; PULSE 70–90; RESP 16–17; TEMP 36.4; O2SAT 98–100; BMI 16.6
--- NOTE | ~2023-12-23 | CT_ITS ---
EXAMINATION: CT CERVICAL SPINE WITHOUT CONTRAST CLINICAL INFORMATION: Mechanical fall, neck injury and pain COMPARISON: CT scan of cervical spine on 10/14/2023 TECHNIQUE: Multiple 3.0 and 0.6 mm axial images were obtained from base of skull to T1 levels without IV contrast enhancement. Sagittal and coronal 2.0 mm bone window images were reconstructed from axial image data. This CT examination was performed using dose optimization techniques as appropriate, variously including the following: *Automated exposure control *Adjustment of mA and/or kV according to patient size (this includes techniques or standardized protocols for targeted exams where dose is matched to indication/reason for exam; i.e. extremities or head) *Use of iterative reconstruction technique DLP: 273.08 mGy-cm FINDINGS: C1/C2: Bony structures are intact with normal alignment. There is no spinal stenosis. C2/C3: Bony structures are intact with normal alignment. There is no spinal stenosis. There is mild asymmetric right C2/C3 neural foraminal stenosis. Bilateral apophyseal joints are intact with normal alignment. C3/C4: Bony structures are intact with normal alignment. There is no spinal stenosis. Bilateral C3/C4 neuroforamina are mildly stenosed. Bilateral apophyseal joints are intact with normal alignment. C4/C5: Bony structures are intact with normal alignment. There is no spinal stenosis. Bilateral C4/C5 neuroforamina are patent. Bilateral apophyseal joints are intact with normal alignment. C5/C6: Bony structures are intact with normal alignment. There is no spinal stenosis. Bilateral C5/C6 neuroforamina are patent. Bilateral apophyseal joints are intact with normal alignment. C6/C7: Bony structures are intact with normal alignment. There is no spinal stenosis. Bilateral C6/C7 neuroforamina are patent. Bilateral apophyseal joints are intact with normal alignment. C7/T1: Bony structures are intact with normal alignment. There is no spinal stenosis. Bilateral C7/T1 neuroforamina are patent. Bilateral apophyseal joints are intact with normal alignment. There is persistent patulous dilatation of the visualized upper thoracic esophagus. CT/CT cervical spine wo IV con IMPRESSION: 1. No evidence of acute fracture or dislocation of the cervical spine. 2. Mild asymmetric right C2/C3 and bilateral C3/C4 neural foraminal stenosis. 3. Persistent patulous dilatation of the visualized upper thoracic esophagus. Fleischner guidelines were followed. Electronically signed by: Moon Ann MD 12/23/2023 11:47 AM EDT RP
--- NOTE | ~2023-12-23 | CT_ITS ---
EXAMINATION: CT HEAD WITHOUT CONTRAST CLINICAL INFORMATION: Mechanical fall. Blunt head trauma with possible loss of consciousness, significant head injury and posttraumatic headache. COMPARISON: CT scan of brain on 10/14/2023 TECHNIQUE: Contiguous axial imaging was performed from the skull base to vertex without intravenous administration of contrast. This CT examination was performed using dose optimization techniques as appropriate, variously including the following: *Automated exposure control *Adjustment of mA and/or kV according to patient size (this includes techniques or standardized protocols for targeted exams where dose is matched to indication/reason for exam; i.e. extremities or head) *Use of iterative reconstruction technique DLP: 653.53 mGy-cm FINDINGS: Cerebral sulci and cisterns are normal. There is mild prominence of right and left lateral ventricles. There is no midline shift, no abnormal intra- or extra- axial fluid accumulation. Kahn and white matter differentiation is normal. Bone window images show no evidence of skull fracture. CT/CT head/brain wo IV con IMPRESSION: 1. Unchanged prominence of lateral ventricles, of unknown clinical significance. 2. No intracranial hemorrhage or skull fracture is seen. 3. No evidence of space occupying lesion could be found. 4. The current plain CT scan of the brain shows no diagnostic evidence of acute cerebral infarction. 5. There is interval resolution of left occipital scalp laceration. Electronically signed by: Moon Ann MD 12/23/2023 11:39 AM EDT
--- NOTE | 2023-12-23 06:43 | ECG_ITS ---
Test Reason : FALL Blood Pressure : / mmHG Vent. Rate : 079 BPM Atrial Rate : 079 BPM P-R Int : 128 ms QRS Dur : 098 ms QT Int : 382 ms P-R-T Axes : 067 039 032 degrees QTc Int : 438 ms Normal sinus rhythm Low voltage QRS Borderline ECG When compared with ECG of 14-OCT-2023 16:51, No significant change was found Referred By: Tiffanie Squires Electronically Signed By:OLGA NÚÑEZ
--- NOTE | 2023-12-23 06:43 | ED.GENADULT ---
HPI - General Adult General Chief complaint: Fall Stated complaint: witness fall, agitated, nonverbal, refused c-colla Time Seen by Provider: 12/23/23 06:42 Source: EMS and other (rollway worker ) Mode of arrival: EMS Limitations: other (nonverbal ) History of Present Illness ED Provider: Norma MARCUS HPI narrative: 53 year old non verbal male history of autism, cerebral palsy, developmental delay, systolic dysfunction with mitral valve prolapse, mood disorder, GERD presents from longterm s/p unwhitnessed fall this morning. Unclear if headstrike or LOC. longterm staff members became aware that patient fell after hearing his bed alarm go off, shortly after staff responded, they found him on the ground, awake, appeared to be no acute distress. Patient is not on blood thinners. rollway worker at the bedside states he is acting his normal self. He did have a cervical collar on on arrival however he removed it. Patient nonverbal and very difficult to obtain review of systems on patient and accurate HPI Related Data Home Medications ?Medication ?Instructions ?Recorded ?Confirmed acetaminophen 325 mg tablet 650 mg PO Q6H PRN pain or temp 08/06/23 09/23/23 aspirin 81 mg tablet,delayed 81 mg PO DAILY 08/06/23 09/23/23 release bacitracin zinc 500 unit/gram 1 appl topical DAILY PRN penile 08/06/23 09/23/23 topical ointment lesions or abrasions betamethasone dipropionate 0.05 % 1 appl topical BID PRN rash on 08/06/23 09/23/23 topical cream back or abdomen carbamide peroxide 6.5 % ear drops 3 drp otic (ears) MOWEFR 08/06/23 09/23/23 (Debrox) cholecalciferol (vitamin D3) 25 25 mcg PO DAILY 08/06/23 09/23/23 mcg (1,000 unit) tablet citalopram 10 mg tablet 20 mg PO DAILY 08/06/23 09/23/23 docusate sodium 100 mg capsule 100 mg PO BID 08/06/23 09/23/23 fluoride (sodium) 1.1 % dental 1 appl dental BID 08/06/23 09/23/23 cream (SF 5000 Plus) lactase 3,000 unit tablet (Lactaid) 3,000 unit PO BID PRN dairy 08/06/23 09/23/23 intolerance loratadine 10 mg tablet 10 mg PO DAILY 08/06/23 09/23/23 magnesium hydroxide 400 mg/5 mL 2,400 mg PO Q72H PRN Constipation, 08/06/23 09/23/23 oral suspension (Milk of Magnesia) if no BM in 3 days multivitamin 1 tab PO DAILY 08/06/23 09/23/23 risperidone 0.5 mg tablet 0.5 mg PO DAILY 08/06/23 09/23/23 risperidone 1 mg tablet 1 mg PO BEDTIME 08/06/23 09/23/23 benzoyl peroxide 5 % topical gel 1 appl topical BID 09/23/23 09/23/23 bisacodyl 10 mg rectal suppository 10 mg WI ONCE PRN constipation; if 09/23/23 09/23/23 (OneLAX Bisacodyl) MOM doesnt work clindamycin phosphate 1 % topical 1 appl topical BID PRN Groin Cyst 09/23/23 09/23/23 gel famotidine 20 mg tablet 20 mg PO BID 09/23/23 09/23/23 guaifenesin 200 mg/5 mL oral liquid 400 mg PO QID PRN Cough 09/23/23 09/23/23 mineral oil-isopropyl myristat 1 appl topical BID 09/23/23 09/23/23 lotion polyethylene glycol 3350 17 17 g PO BEDTIME 09/23/23 09/23/23 gram/dose oral powder simethicone 80 mg chewable tablet 80 mg PO BID 09/23/23 09/23/23 Allergies Allergy/AdvReac Type Severity Reaction Status Date / Time Benzodiazepines Allergy Unknown UNKNOWN Verified 12/23/23 06:09 [BENZODIAZEPINES] benztropine [BENZTROPINE] Allergy Unknown UNKNOWN Verified 12/23/23 06:09 lorazepam [From ATIVAN] Allergy Unknown UNKNOWN Verified 12/23/23 06:09 tretinoin [From RETIN-A] Allergy Unknown UNKNOWN Verified 12/23/23 06:09 Review of Systems Review of Systems: Yes Unobtainable due to mental status [facility] Past Medical History Attestation statement: The following information was validated with the patient. Source: old records reviewed and nursing notes reviewed Medical History Nonverbal Weight disorder Gingivitis Eczema Dysphagia Constipation MR (mitral regurgitation) Mitral valve prolapse Vitamin D deficiency Tachycardia Acne Impulse control disorder Anxiety Cerebral palsy Autism History of pica Social History Social History Household Members: Caregiver and Other Household Members Other:: pt lives in longterm Housing: Other Housing Other:: residential Unable to assess alcohol history related to: Unable to respond Alcohol intake: never Patient Tobacco Use Status: Never used Tobacco Smoked in Last 30 Days: No Second Hand Smoke Exposure: No Use of substances other than those prescribed or required for medical reasons: No Advance Directives: Yes Advance Directives on File: Yes Advance Directives Date on File: 10/05/23 Do you have a plan to hurt others: No Plan service: No Physical Exam ED Vital Signs: Vital Signs - 24 hr 12/23/23 06:05 12/23/23 06:14 12/23/23 06:19 Pulse Rate 90 Respiratory Rate 17 17 Blood Pressure 102/68 120/68 102/68 Pulse Oximetry 98 Oxygen Delivery Method Room Air Room Air 12/23/23 08:55 12/23/23 09:10 12/23/23 09:25 Pulse Rate 84 75 70 Respiratory Rate 16 16 16 Blood Pressure 101/54 L 94/56 L 94/59 L Pulse Oximetry 100 100 99 Oxygen Delivery Method Room Air Room Air Room Air 12/23/23 10:00 Pulse Rate 73 Respiratory Rate 16 Blood Pressure 110/66 Pulse Oximetry 99 Oxygen Delivery Method Room Air BMI result Body Mass Index 16.6 vss Appearance: Alert.? Patient nonverbal at baseline. No acute distress.? Head: Normocephalic, atraumatic, no step-offs or deformities Eyes: Pupils equal, round and reactive to light.? ENT: Pharynx normal.? Neck: Normal inspection.? Neck supple.? CVS: Normal heart rate and rhythm.? Pulses normal.? Respiratory: No respiratory distress.? Breath sounds normal.? Abdomen: Soft and nontender.? Skin: Skin warm and dry.? Normal skin color.? Normal skin turgor.? Extremities: No lower extremity edema.? No calf ttp. 5/5 strength to bilateral upper and lower extremities Back: No midline tenderness, no C-spine tenderness, full range of motion, no CVA tenderness bilaterally Neuro: Awake. Patient nonverbal at baseline. Course Reevaluation(s) Reevaluation #1: CBC unremarkable. Chemistry with no acute findings needing intervention. Time: 11:46 Reevaluation #2: CT head with unchanged prominence of lateral ventricles, no intracranial hemorrhage or skull fracture. No space-occupying lesion. Time: 11:46 Reevaluation #3: Cervical spine CT no acute findings. Low suspicion for UTI no indication for urine Educated patient on diagnosis and treatment plan, answered all question, patient verbalizes understanding. At this time patient will be discharged home, advised to return with new or worsening symptoms. Educated on worrisome signs and symptoms and when to return. At this time I feel comfortable discharge home. Time: 11:53 Medications Administered Discontinued Medications Generic Name Dose Route Start Last Admin Trade Name Mita PRN Reason Stop Dose Admin Diazepam 10 mg 12/23/23 07:36 12/23/23 07:47 Diazepam 5 Mg Tablet PO 12/23/23 07:37 10 mg ONCE ONE Administration Sodium Chloride 1,000 mls @ 999 mls/hr 12/23/23 10:00 12/23/23 10:00 Ns IV 12/23/23 11:00 Not Given .Q1H1M ALANNA Midazolam HCl 4 mg 12/23/23 08:37 12/23/23 08:40 Midazolam Hcl/Pf 2 Mg/2 Ml Vial IM 12/23/23 08:38 4 mg ONCE ONE Administration Medical Decision Making Medical Decision Making [facility] Narrative: [id number] 53-year-old male presents status post unwitnessed fall. Coming from longterm. Appears to be at his baseline per body and fender worker. Physical exam patient had a cervical collar however it was removed. Essentially unremarkable. Appears to be around patient's baseline. History and physical exam concerning for likely mechanical fall. Less likely dysrhythmia, ACS, intracranial hemorrhage, stroke, posterior stroke, cervical spine fracture, dislocation traumatic subluxation. No signs of traumatic injury to chest, abdomen or pelvis. Low suspicion for metabolic derangement Plan medical clearance, imaging and likely back to longterm Differential Diagnosis Differential Diagnoses: The differential diagnosis associated with the presentation includes History and physical exam concerning for likely mechanical fall. Less likely dysrhythmia, ACS, intracranial hemorrhage, stroke, posterior stroke, cervical spine fracture, dislocation traumatic subluxation. No signs of traumatic injury to chest, abdomen or pelvis. Low suspicion for metabolic derangement Admission/Observation Consideration of admission/observation: Escalation of care including admission/observation considered Lab Data MDM Lab Attestation statement: I reviewed the patient's lab results. 12/23/23 10:31 12/23/23 10:31 Labs: Lab Results 12/23/23 Range/Units 10:31 WBC 7.0 (4.8-10.8) X10*3/uL RBC 4.33 L (4.60-5.80) X10*6/uL Hgb 14.4 (14.0-18.0) g/dl Hct 41.7 L (42.0-52.0) % MCV 96.3 (80.0-98.0) fL MCH 33.3 H (27.0-33.0) pg MCHC 34.5 (31.0-36.0) g/dl RDW 11.9 (11.0-16.0) % Plt Count 220 (160-400) X10*3/uL MPV 9.0 L (9.4-12.4) fL Immature Gran % (Auto) 0.3 (0.0-0.4) % Neut % (Auto) 73.1 H (45-73) % Lymph % (Auto) 12.3 L (20-40) % Barbour % (Auto) 13.6 H (2-11) % Eos % (Auto) 0.3 (0-4) % Baso % (Auto) 0.4 (0-2) % Lymph # (Auto) 0.9 L (1.2-4.9) X10*3/uL Barbour # (Auto) 1.0 (0.1-1.2) X10*3/uL Eos # (Auto) 0.0 (0.0-0.4) X10*3/uL Baso # (Auto) 0.0 (0.0-0.2) X10*3/uL Abs Immat Gran (auto) 0.02 (0.00-0.03) X10*3/uL Absolute Neuts (auto) 5.1 (2.0-8.3) x10*3/uL Absolute Nucleated RBC 0.000 (0.0-0.012) X10*3/uL Nucleated RBC % (auto) 0.0 (0.0-0.2) /100WBC Sodium 138 (135-145) mmol/L Potassium 4.1 (3.3-5.1) mmol/L Chloride 104 (96-108) mmol/L Carbon Dioxide 26 (22-29) mmol/L Anion Gap 12 (12-20) BUN 14 (9-16) mg/dL Creatinine 0.68 (0.5-1.4) mg/dL Estim Creat Clear Calc 84.7 Estimated GFR > 60 Random Glucose 86 (60-115) mg/dL Calcium 9.2 (8.4-10.2) mg/dL Total Bilirubin 0.5 (0.0-1.0) mg/dL AST 24 (5-37) U/L ALT 25 (0-40) U/L Alkaline Phosphatase 49 (39-117) U/L Troponin I High Sens < 2.7 (<3.5-35.0) ng/L Total Protein 6.4 L (6.5-8.0) g/dL Albumin 3.6 (3.5-5.0) g/dL Independent Interpretation I performed an independent interpretation of an: EKG (Vent. Rate : 079 BPM Atrial Rate : 079 BPM P-R Int : 128 ms QRS Dur : 098 ms QT Int : 382 ms P-R-T Axes : 067 039 032 degrees QTc Int : 438 ms Normal sinus rhythm Low voltage QRS Borderline ECG When compared with ECG of 14-OCT-2023 16:51, No significant change was foun) and CT Scan (CT/CT head/brain wo IV con IMPRESSION: 1. Unchanged prominence of lateral ventricles, of unknown clinical significance. 2. No intracranial hemorrhage or skull fracture is seen. 3. No evidence of space occupying lesion could be found. 4. The current plain CT scan of the brain shows no diagnostic ) Radiology Impression Discussion of test interpretation with radiology: I have reviewed the radiologist's reading. Critical Care Time Critical Care Time Critical Care Time: Yes Total Critical Care Time: 35 Attestation: I attest to this time spent taking care of the patient, obtaining history, physical, reviewing labs, imaging, treatment of patients condition +/- specialist/hospitalist consult Discharge Plan Discharge Clinical Impression: Fall, Concussion Patient Disposition: Home, Self-Care Instructions: Concussion (ED), Fall Prevention (ED) Additional Instructions: Take your medications as prescribed. If you were prescribed antibiotics today, it is important that you take your medication to their entirety, do not skip any doses, do not finish them early. Follow-up with your primary care provider this week. Return to the emergency department with new or worsening symptoms. Such as fevers, chills, chest pain, shortness of breath, nausea, vomiting, dizziness, headache, vision changes, lethargy In case of emergency call 911 CT/CT head/brain wo IV con IMPRESSION: 1. Unchanged prominence of lateral ventricles, of unknown clinical significance. 2. No intracranial hemorrhage or skull fracture is seen. 3. No evidence of space occupying lesion could be found. 4. The current plain CT scan of the brain shows no diagnostic evidence of acute cerebral infarction. 5. There is interval resolution of left occipital scalp laceration. Prescriptions: No Action citalopram 10 mg tablet 20 mg PO DAILY docusate sodium 100 mg capsule 100 mg PO BID loratadine 10 mg tablet 10 mg PO DAILY risperidone 0.5 mg tablet 0.5 mg PO DAILY cholecalciferol (vitamin D3) 25 mcg (1,000 unit) tablet 25 mcg PO DAILY risperidone 1 mg tablet 1 mg PO BEDTIME multivitamin Tablet 1 tab PO DAILY aspirin 81 mg Tablet,Delayed Release (Dr/Ec) 81 mg PO DAILY Debrox 6.5 % Drops 3 drp OTIC (EARS) MOWEFR fluoride (sodium) [SF 5000 Plus] 1.1 % Cream 1 appl DENTAL BID acetaminophen 325 mg tablet 650 mg PO Q6H PRN (Reason: pain or temp) bacitracin zinc 500 unit/gram Ointment 1 appl TOPICAL DAILY PRN (Reason: penile lesions or abrasions) magnesium hydroxide [Milk of Magnesia] 400 mg/5 mL Suspension 2,400 mg PO Q72H PRN (Reason: Constipation, if no BM in 3 days) lactase [Lactaid] 3,000 unit Tablet 3,000 unit PO BID PRN (Reason: dairy intolerance) Rx Instructions: administer with meals and/or snacks betamethasone dipropionate 0.05 % Cream 1 appl TOPICAL BID PRN (Reason: rash on back or abdomen) Rx Instructions: apply for 2 weeks prn, contact md if not resolved benzoyl peroxide 5 % Gel 1 appl TOPICAL BID Patient Comments: Apply to face acne, cyst mixed with clindamycin clindamycin phosphate 1 % gel 1 appl topical BID PRN (Reason: Groin Cyst) Rx Instructions: apply to groin cysts, also mixed with benzoyl peroxide and ply to face acne bisacodyl [OneLAX Bisacodyl] 10 mg suppository 10 mg WI ONCE PRN (Reason: constipation; if MOM doesnt work) polyethylene glycol 3350 17 gram/dose powder 17 g PO BEDTIME Rx Instructions: Give one capful in 4-8oz of fluid by mouth daily in the pm simethicone 80 mg tablet,chewable 80 mg PO BID mineral oil-isopropyl myristat Lotion 1 appl TOPICAL BID Rx Instructions: apply a thin film to dry areas of skin guaifenesin 200 mg/5 mL Liquid 400 mg PO QID PRN (Reason: Cough) famotidine 20 mg tablet 20 mg PO BID Referrals: Jason Mason MD [Primary Care Provider] - 2 days Print Language: Scottish
[2023-12-23] MEDS: diazePAM 5 MG TABLET 10 MG PO (07:47)
[2023-12-23] MEDS: Midazolam HCl/PF 2 MG/2 ML VIAL 4 MG IM (08:40)
--- NOTE | 2023-12-23 09:13 | PC.NURSE ---
pt medicated w PRN PO 10mg valium and given whole in pudding - pt typically gets premed medication prior to imaging appts d/t difficulty sitting still for imaging. pt unable to tolerate CT scan 35min prior valium administration, provider aware. 0840 4mg IM versed given per provider order while pt was on CT scanner table d/t unable to stay still for c-spine/head CT. after ~ 5 min pt resting quietly and able to tolerate CT scan, RR even and unlabored w equal chest rise. workers compensation attorney at bedside w pt.
[2023-12-23 10:36] LABS: MANUAL DIFF FLAG NO
[2023-12-23 10:37] LABS: Basophils Percent Auto 0.4 % (0-2); Eosinophils Percent Auto 0.3 % (0-4); Hematocrit 41.7 % (42.0-52.0); Hemoglobin 14.4 g/dl (14.0-18.0); Imm Gran Abs Auto 0.02 X10*3/uL (0.00-0.03); Imm Gran Pct Auto 0.3 % (0.0-0.4); Lymphocytes Absolute Auto 0.9 X10*3/uL (1.2-4.9); Lymphocytes Percent Auto 12.3 % (20-40); Mean Corpuscular HGB Conc 34.5 g/dl (31.0-36.0); Mean Corpuscular Hemoglobin 33.3 pg (27.0-33.0); Mean Corpuscular Volume 96.3 fL (80.0-98.0); Monocytes Percent Auto 13.6 % (2-11); Neutrophils Absolute Auto 5.1 x10*3/uL (2.0-8.3); Neutrophils Percent Auto 73.1 % (45-73); Platelet Count 220 X10*3/uL (160-400); Red Blood Count 4.33 X10*6/uL (4.60-5.80); Red Cell Distribution Width 11.9 % (11.0-16.0)
[2023-12-23 10:51] LABS: Alanine Aminotransferase 25 U/L (0-40); Albumin Level 3.6 g/dL (3.5-5.0); Alkaline Phosphatase 49 U/L (39-117); Anion Gap 12 (12-20); Aspartate Amino Transferase 24 U/L (5-37); Bilirubin Total 0.5 mg/dL (0.0-1.0); Blood Urea Nitrogen 14 mg/dL (9-16); Calcium 9.2 mg/dL (8.4-10.2); Carbon Dioxide 26 mmol/L (22-29); Chloride 104 mmol/L (96-108); Creatinine Clr Calc Pharmacy 84.7; Estimated Glomerular Filt Rate > 60; Glucose Random 86 mg/dL (60-115); Potassium 4.1 mmol/L (3.3-5.1); Sodium 138 mmol/L (135-145); Total Protein 6.4 g/dL (6.5-8.0)
[2023-12-23 10:58] LABS: Troponin-I High Sensitivity < 2.7 ng/L (<3.5-35.0)
--- NOTE | 2023-12-23 11:21 | PC.NURSE ---
pt resting quietly, vss, pt appears more awake, social group worker remains w pt. tech and RN at bedside to obtain labs.
== END 2023-12-23 15:25 | disposition home or self-care (01) ==
PROVIDERS: Physician Assistant; Emergency Provider Emergency Medicine; PCP Internal Medicine
DX: S06.0X0A Concussion without loss of consciousness, initial encounter (principal); W06.XXXA Fall from bed, initial encounter; Y93.9 Activity, unspecified; Y92.092 Bedroom in other non-institutional residence as the place of occurrence of the external cause; Y99.9 Unspecified external cause status; Z79.899 Other long term (current) drug therapy; G80.9 Cerebral palsy, unspecified
CPT/HCPCS: 36415; 70450; 72125; 80053; 84484; 85025; 93005; 96372; 99285; J2250

== ENCOUNTER 2024-05-11 21:03 | Emergency (ER) | payer MEDICAID, SELFPAY ==
--- NOTE | ~2024-05-11 | XR_ITS ---
CLINICAL HISTORY: explosive vomiting 1 view chest x-ray Comparison: 10/05/2023 Findings: No consolidation or effusion. Heart size is normal. No acute fracture. IMPRESSION: 1. No acute findings. This document has been electronically signed by: Joe Aly MD on 05/11/2024 23:24:40
--- NOTE | ~2024-05-11 | CT_ITS ---
CLINICAL HISTORY: abrupt projectile vomiting, distended abdomen CT abdomen and pelvis with contrast Comparison: CT/REG/SR - CT ABDOMEN PELVIS WO IV CON - 04/28/23 01:41 EST Findings: No consolidation or effusion. Mild cardiomegaly. The gallbladder is distended. No intrahepatic biliary ductal dilatation and no common duct dilatation. Liver, spleen, adrenal glands, pancreas and kidneys are unremarkable. There is no hydronephrosis. Fluid-filled mildly prominent loops of small bowel throughout the abdomen without transition point. There is fluid within the right colon as well. Findings could be compatible with gastroenteritis or diffuse ileus. No bowel wall thickening. No evidence of obstruction. Pelvic contents unremarkable. Normal appendix. Urinary bladder is moderately distended and otherwise unremarkable. The bones are intact. IMPRESSION: 1. Fluid distended small bowel and right colon suggesting diffuse ileus or gastroenteritis. 2. Distended gallbladder without pericholecystic stranding or biliary ductal dilatation. This may be incidental and of no clinical significance. This document has been electronically signed by: Kyle Munoz MD on 05/11/2024 23:58:43
[2024-05-11 21:20] VITALS: BP 106/65; PULSE 84; RESP 16; TEMP 36.7; O2SAT 98
[2024-05-11 21:29] VITALS: BMI 20.8
--- NOTE | 2024-05-11 21:30 | ED_ITS ---
HPI - General Adult General Chief complaint: Nausea/Vomiting/Diarrhea Stated complaint: special needs GH, non verbal, vomiting, AMS Time Seen by Provider: 05/11/24 21:30 History of Present Illness ED Provider: Edelmira MARISCAL narrative: The patient is a 53-year-old male with multiple chronic developmental problems who lives at a long term. Apparently tonight after dinner he fairly abrupt and unexpected explosive vomiting that was described as projectile vomiting. He also had significant diarrhea. The staff who was with the patient says that the patient had seemed unusually hungry at dinnertime this evening and had eaten his food faster than usual but otherwise there has been no change in the patient's usual behavior earlier in the day. There was no fever. The patient is nonverbal and unable to give any additional history. Related Data Home Medications ?Medication ?Instructions ?Recorded ?Confirmed acetaminophen 325 mg tablet 650 mg PO Q6H PRN pain or temp 08/06/23 09/23/23 aspirin 81 mg tablet,delayed 81 mg PO DAILY 08/06/23 09/23/23 release bacitracin zinc 500 unit/gram 1 appl topical DAILY PRN penile 08/06/23 09/23/23 topical ointment lesions or abrasions betamethasone dipropionate 0.05 % 1 appl topical BID PRN rash on 08/06/23 09/23/23 topical cream back or abdomen carbamide peroxide 6.5 % ear drops 3 drp otic (ears) MOWEFR 08/06/23 09/23/23 (Debrox) cholecalciferol (vitamin D3) 25 25 mcg PO DAILY 08/06/23 09/23/23 mcg (1,000 unit) tablet citalopram 10 mg tablet 20 mg PO DAILY 08/06/23 09/23/23 docusate sodium 100 mg capsule 100 mg PO BID 08/06/23 09/23/23 fluoride (sodium) 1.1 % dental 1 appl dental BID 08/06/23 09/23/23 cream (SF 5000 Plus) lactase 3,000 unit tablet (Lactaid) 3,000 unit PO BID PRN dairy 08/06/23 09/23/23 intolerance loratadine 10 mg tablet 10 mg PO DAILY 08/06/23 09/23/23 magnesium hydroxide 400 mg/5 mL 2,400 mg PO Q72H PRN Constipation, 08/06/23 09/23/23 oral suspension (Milk of Magnesia) if no BM in 3 days multivitamin 1 tab PO DAILY 08/06/23 09/23/23 risperidone 0.5 mg tablet 0.5 mg PO DAILY 08/06/23 09/23/23 risperidone 1 mg tablet 1 mg PO BEDTIME 08/06/23 09/23/23 benzoyl peroxide 5 % topical gel 1 appl topical BID 09/23/23 09/23/23 bisacodyl 10 mg rectal suppository 10 mg [place] ONCE PRN constipation; if 09/23/23 09/23/23 (OneLAX Bisacodyl) MOM doesnt work clindamycin phosphate 1 % topical 1 appl topical BID PRN Groin Cyst 09/23/23 09/23/23 gel famotidine 20 mg tablet 20 mg PO BID 09/23/23 09/23/23 guaifenesin 200 mg/5 mL oral liquid 400 mg PO QID PRN Cough 09/23/23 09/23/23 mineral oil-isopropyl myristat 1 appl topical BID 09/23/23 09/23/23 lotion polyethylene glycol 3350 17 17 g PO BEDTIME 09/23/23 09/23/23 gram/dose oral powder simethicone 80 mg chewable tablet 80 mg PO BID 09/23/23 09/23/23 Previous Rx's ?Medication ?Instructions ?Recorded ondansetron 4 mg disintegrating 4 mg PO Q6H PRN nausea and 05/12/24 tablet vomiting #10 tabs Allergies Allergy/AdvReac Type Severity Reaction Status Date / Time Benzodiazepines Allergy Unknown UNKNOWN Verified 05/11/24 21:31 [BENZODIAZEPINES] benztropine [BENZTROPINE] Allergy Unknown UNKNOWN Verified 05/11/24 21:31 lorazepam [From ATIVAN] Allergy Unknown UNKNOWN Verified 05/11/24 21:31 tretinoin [From RETIN-A] Allergy Unknown UNKNOWN Verified 05/11/24 21:31 Review of Systems 2 Review of Systems: Yes Unobtainable due to mental status PMFSH Past Medical History Medical History Nonverbal Weight disorder Gingivitis Eczema Dysphagia Constipation MR (mitral regurgitation) Mitral valve prolapse Vitamin D deficiency Tachycardia Acne Impulse control disorder Anxiety Cerebral palsy Autism History of pica Social History Social History Household Members: Caregiver and Other Household Members Other:: pt lives in long term Housing: Other Housing Other:: [facility] Unable to assess alcohol history related to: Unable to respond Alcohol intake: never Patient Tobacco Use Status: Never used Tobacco Smoked in Last 30 Days: No Second Hand Smoke Exposure: No Use of substances other than those prescribed or required for medical reasons: No Advance Directives: Yes Advance Directives on File: Yes Advance Directives Date on File: 10/05/23 Do you have a plan to hurt others: No Plan service: No Physical Exam ED Vital Signs: Vital Signs - 24 hr 05/11/24 21:20 05/12/24 01:12 05/12/24 04:46 Temperature 98.1 F 100.0 F 98.8 F Pulse Rate 84 100 93 Respiratory Rate 16 14 14 Blood Pressure 106/65 101/56 L 100/68 Pulse Oximetry 98 100 100 Oxygen Delivery Method Room Air Room Air Room Air 05/12/24 05:15 Temperature 98.8 F Pulse Rate 93 Respiratory Rate 14 Blood Pressure 100/68 Pulse Oximetry 100 Oxygen Delivery Method Room Air BMI result Body Mass Index 20.8 Const Other: The patient is a chronically ill-appearing 53-year-old. He is awake. He is nonverbal which I believe is baseline. He looks mildly unwell but not in acute discomfort or respiratory distress. HENMT Other: Face is symmetrical. Mucous membranes moist. Eyes Other: Pupils are round equal, no scleral icterus. Neck Other: No nuchal rigidity. No neck swelling. Resp Effort & Inspection: normal respiratory effort Auscultation: clear to auscultation bilaterally Cardio Rate: regular rate Rhythm: regular rhythm Heart sounds: S1 normal heart sound present and S2 normal heart sound present GI Other: The abdomen is soft. There is mild diffuse tenderness without clear focal rebound or guarding. Skin Other: Skin is dry and unremarkable Neuro Other: the patient is awake. He has a subdued demeanor. He is nonverbal which I believe is his baseline. His face is symmetrical. He seems to have symmetrical tone in his extremities. Extrem Other: No peripheral edema Medications Administered Discontinued Medications Generic Name Dose Route Start Last Admin Trade Name Freq PRN Reason Stop Dose Admin Sodium Chloride 1,000 mls @ 999 mls/hr 05/11/24 21:45 05/11/24 23:55 Ns IV 05/11/24 22:45 Infused .Q1H1M ALANNA Infusion Sodium Chloride 1,000 mls @ 999 mls/hr 05/12/24 01:00 05/12/24 02:19 Ns IV 05/12/24 02:00 Infused .Q1H1M ALANNA Infusion Acetaminophen 1,000 mg in 100 mls @ 400 mls/hr 05/12/24 00:53 05/12/24 01:45 Ofirmev IV 05/12/24 01:07 Infused ONCE ONE Infusion Iohexol 85 ml 05/11/24 23:16 05/11/24 23:17 Iohexol 350 Mg/Ml 100 Ml Infus..Btl IV 05/11/24 23:17 85 ml ONCE ONE Administration Loperamide HCl 4 mg 05/12/24 04:40 05/12/24 05:07 Loperamide Hcl 2 Mg Capsule PO 05/12/24 04:41 4 mg ONCE ONE Administration Ondansetron HCl 4 mg 05/12/24 00:53 05/12/24 01:18 Ondansetron Hcl 4 Mg/2 Ml Vial IVPUSH 05/12/24 00:54 4 mg ONCE ONE Administration Medical Decision Making Medical Decision Making MDM Narrative: the patient is a 53-year-old with a history of significant developmental delay who lives at a long term and became acutely ill this evening with a great deal of vomiting and diarrhea. He had some tenderness on his abdomen. He had a high white count but an unremarkable CRP. His CT scan shows a lot of dilated loops of bowel and fluid filled loops of bowel possibly consistent with gastroenteritis or diffuse ileus. His metabolic panel is unremarkable. He has tested positive for COVID. I suspect that he probably has a gastrointestinal manifestation of COVID. He was treated with 2 L of IV fluids. He seemed to be stable. He did not have ongoing vomiting. I felt he was appropriate to return to his long term setting. Lab Data 05/11/24 22:51 05/11/24 22:51 Labs: Lab Results 05/11/24 05/12/24 Range/Units 22:51 01:12 WBC 18.4 H (4.8-10.8) X10*3/uL RBC 5.31 D (4.60-5.80) X10*6/uL Hgb 17.3 D (14.0-18.0) g/dl Hct 50.4 D (42.0-52.0) % MCV 94.9 (80.0-98.0) fL MCH 32.6 (27.0-33.0) pg MCHC 34.3 (31.0-36.0) g/dl RDW 11.8 (11.0-16.0) % Plt Count 267 (160-400) X10*3/uL MPV 8.8 L (9.4-12.4) fL Immature Gran % (Auto) 0.3 (0.0-0.4) % Neut % (Auto) 88.6 H (45-73) % Lymph % (Auto) 2.0 L (20-40) % Bertie % (Auto) 8.4 (2-11) % Eos % (Auto) 0.5 (0-4) % Baso % (Auto) 0.2 (0-2) % Lymph # (Auto) 0.4 L (1.2-4.9) X10*3/uL Bertie # (Auto) 1.5 H (0.1-1.2) X10*3/uL Eos # (Auto) 0.1 (0.0-0.4) X10*3/uL Baso # (Auto) 0.0 (0.0-0.2) X10*3/uL Abs Immat Gran (auto) 0.06 H (0.00-0.03) X10*3/uL Absolute Neuts (auto) 16.3 H (2.0-8.3) x10*3/uL Absolute Nucleated RBC 0.000 (0.0-0.012) X10*3/uL Nucleated RBC % (auto) 0.0 (0.0-0.2) /100WBC Smear Tech's Comments VERIFIED PT 11.4 (10.9-12.4) SEC INR 1.0 (0.9-1.1) Sodium 139 (135-145) mmol/L Potassium 4.8 (3.3-5.1) mmol/L Chloride 102 (96-108) mmol/L Carbon Dioxide 30 H (22-29) mmol/L Anion Gap 12 (12-20) BUN 22 H (9-16) mg/dL Creatinine 0.80 (0.5-1.4) mg/dL Estim Creat Clear Calc 77.0 Estimated GFR > 60 Random Glucose 117 H (60-115) mg/dL Calcium 10.0 D (8.4-10.2) mg/dL Magnesium 2.0 (1.6-2.6) mg/dL Total Bilirubin 0.6 (0.0-1.0) mg/dL Direct Bilirubin 0.2 (0.0-0.5) mg/dL AST 28 (5-37) U/L ALT 23 (0-40) U/L Alkaline Phosphatase 61 (39-117) U/L C-Reactive Protein 0.15 (< or = 0.50) mg/dL Total Protein 8.7 H (6.5-8.0) g/dL Albumin 4.6 (3.5-5.0) g/dL Lipase 26 (8-78) U/L Influenza Type A (PCR) NEGATIVE (Negative) Influenza Type B (PCR) NEGATIVE (Negative) RSV RNA Qual (PCR) NEGATIVE (Negative) SARS-CoV-2 RNA (RT-PCR) POSITIVE A (Negative) Discharge Plan Discharge Clinical Impression: Vomiting and diarrhea, Gastroenteritis, COVID Patient Disposition: Home, Self-Care Additional Instructions: His CT scan is consistent with gastroenteritis. He has also tested positive for COVID which is probably the cause of his abdominal symptoms. I have sent a prescription for ondansetron which you may use if he seems to have ongoing nausea. He also received a dose of loperamide which may help reduce his diarrhea although I anticipate he will probably have some ongoing loose stools for a day or 2. Please continue his regular medications otherwise. Stay in touch with his regular doctor for additional advice as needed. Return to the emergency room if worse. Prescriptions: New ondansetron 4 mg tablet,disintegrating 4 mg PO Q6H PRN (Reason: nausea and vomiting) Qty: 10 0RF No Action citalopram 10 mg tablet 20 mg PO DAILY docusate sodium 100 mg capsule 100 mg PO BID loratadine 10 mg tablet 10 mg PO DAILY risperidone 0.5 mg tablet 0.5 mg PO DAILY cholecalciferol (vitamin D3) 25 mcg (1,000 unit) tablet 25 mcg PO DAILY risperidone 1 mg tablet 1 mg PO BEDTIME multivitamin Tablet 1 tab PO DAILY aspirin 81 mg Tablet,Delayed Release (Dr/Ec) 81 mg PO DAILY Debrox 6.5 % Drops 3 drp OTIC (EARS) MOWEFR fluoride (sodium) [SF 5000 Plus] 1.1 % Cream 1 appl DENTAL BID acetaminophen 325 mg tablet 650 mg PO Q6H PRN (Reason: pain or temp) bacitracin zinc 500 unit/gram Ointment 1 appl TOPICAL DAILY PRN (Reason: penile lesions or abrasions) magnesium hydroxide [Milk of Magnesia] 400 mg/5 mL Suspension 2,400 mg PO Q72H PRN (Reason: Constipation, if no BM in 3 days) lactase [Lactaid] 3,000 unit Tablet 3,000 unit PO BID PRN (Reason: dairy intolerance) Rx Instructions: administer with meals and/or snacks betamethasone dipropionate 0.05 % Cream 1 appl TOPICAL BID PRN (Reason: rash on back or abdomen) Rx Instructions: apply for 2 weeks prn, contact md if not resolved benzoyl peroxide 5 % Gel 1 appl TOPICAL BID Patient Comments: Apply to face acne, cyst mixed with clindamycin clindamycin phosphate 1 % gel 1 appl topical BID PRN (Reason: Groin Cyst) Rx Instructions: apply to groin cysts, also mixed with benzoyl peroxide and ply to face acne bisacodyl [OneLAX Bisacodyl] 10 mg suppository 10 mg [place] ONCE PRN (Reason: constipation; if MOM doesnt work) polyethylene glycol 3350 17 gram/dose powder 17 g PO BEDTIME Rx Instructions: Give one capful in 4-8oz of fluid by mouth daily in the pm simethicone 80 mg tablet,chewable 80 mg PO BID mineral oil-isopropyl myristat Lotion 1 appl TOPICAL BID Rx Instructions: apply a thin film to dry areas of skin guaifenesin 200 mg/5 mL Liquid 400 mg PO QID PRN (Reason: Cough) famotidine 20 mg tablet 20 mg PO BID Referrals: Jason Mason MD [Primary Care Provider] - (COVID, vomiting and diarrhea) Interventions: ED Discharge Assessment Last Done: 05/12/24 05:15 Discharge Date/Time: 05/12/24 05:15 Print Language: Italian
[2024-05-11] MEDS: 0.9 % Sodium Chloride 1,000 ML 999 ML IV (22:55)
[2024-05-11 22:56] LABS: Basophils Percent Auto 0.2 % (0-2); Eosinophils Absolute Auto 0.1 X10*3/uL (0.0-0.4); Eosinophils Percent Auto 0.5 % (0-4); Hematocrit 50.4 % (42.0-52.0); Hemoglobin 17.3 g/dl (14.0-18.0); Imm Gran Abs Auto 0.06 X10*3/uL (0.00-0.03); Imm Gran Pct Auto 0.3 % (0.0-0.4); Lymphocytes Absolute Auto 0.4 X10*3/uL (1.2-4.9); MANUAL DIFF FLAG SCAN; Mean Corpuscular HGB Conc 34.3 g/dl (31.0-36.0); Mean Corpuscular Hemoglobin 32.6 pg (27.0-33.0); Mean Corpuscular Volume 94.9 fL (80.0-98.0); Mean Platelet Volume 8.8 fL (9.4-12.4); Monocytes Absolute Auto 1.5 X10*3/uL (0.1-1.2); Monocytes Percent Auto 8.4 % (2-11); Neutrophils Absolute Auto 16.3 x10*3/uL (2.0-8.3); Neutrophils Percent Auto 88.6 % (45-73); Platelet Count 267 X10*3/uL (160-400); Red Blood Count 5.31 X10*6/uL (4.60-5.80); Red Cell Distribution Width 11.8 % (11.0-16.0); SCAN SMEAR FLAG 1; White Blood Count 18.4 X10*3/uL (4.8-10.8)
[2024-05-11 23:07] LABS: Prothrombin Time 11.4 SEC (10.9-12.4)
[2024-05-11 23:14] LABS: Alanine Aminotransferase 23 U/L (0-40); Albumin Level 4.6 g/dL (3.5-5.0); Alkaline Phosphatase 61 U/L (39-117); Anion Gap 12 (12-20); Aspartate Amino Transferase 28 U/L (5-37); Bilirubin Direct 0.2 mg/dL (0.0-0.5); Bilirubin Total 0.6 mg/dL (0.0-1.0); Blood Urea Nitrogen 22 mg/dL (9-16); C Reactive Protein 0.15 mg/dL (< or = 0.50); Carbon Dioxide 30 mmol/L (22-29); Chloride 102 mmol/L (96-108); Estimated Glomerular Filt Rate > 60; Glucose Random 117 mg/dL (60-115); Lipase 26 U/L (8-78); Potassium 4.8 mmol/L (3.3-5.1); Sodium 139 mmol/L (135-145); Total Protein 8.7 g/dL (6.5-8.0)
[2024-05-11 23:17] LABS: SLIDE REVIEW VERIFIED
[2024-05-11] MEDS: iohexoL 350 MG/ML 100 ML INFUS..BTL 85 ML IV (23:17)
[2024-05-12 01:12] VITALS: BP 101/56; PULSE 100; RESP 14; TEMP 37.8; O2SAT 100
[2024-05-12] MEDS: ondansetron HCL 4 MG/2 ML VIAL IVPUSH (01:18)
[2024-05-12] MEDS: Acetaminophen 1,000 MG/100 ML PIGGYBACK 400 MG IV (01:18)
[2024-05-12] MEDS: 0.9 % Sodium Chloride 1,000 ML 999 ML IV (01:18)
[2024-05-12 01:59] LABS: Influenza A PCR NEGATIVE (Negative); Influenza B PCR NEGATIVE (Negative); Resp Syncy Virus RNA Qual PCR NEGATIVE (Negative); SARS COV2 PCR INHOUSE POSITIVE (Negative)
[2024-05-12 04:46] VITALS: BP 100/68; PULSE 93; RESP 14; TEMP 37.1; O2SAT 100
[2024-05-12] MEDS: Loperamide HCl 2 MG CAPSULE 4 MG PO (05:07)
[2024-05-12 05:15] VITALS: BP 100/68; PULSE 93; RESP 14; TEMP 37.1; O2SAT 100
== END 2024-05-12 05:15 | disposition home or self-care (01) ==
PROVIDERS: Emergency Provider Emergency Medicine; PCP Internal Medicine
DX: K52.9 Noninfective gastroenteritis and colitis, unspecified (principal); U07.1 COVID-19; R11.2 Nausea with vomiting, unspecified; R10.819 Abdominal tenderness, unspecified site; R10.2 Pelvic and perineal pain; Z79.899 Other long term (current) drug therapy
CPT/HCPCS: 0241U; 36415; 71045; 74177; 80048; 80076; 83690; 83735; 85025; 85610; 86140; 96361; 96374; 96375; 99285; J0131; J2405; Q9967

== ENCOUNTER → 2024-05-11 21:38 | Outpatient (BNV) | payer MEDICAID, SELFPAY | PROVIDERS: Emergency Provider Emergency Medicine; PCP Internal Medicine; Visit Provider Specialist | DX: R10.2 Pelvic and perineal pain (principal); R11.12 Projectile vomiting | CPT/HCPCS: 71045; 74177 ==